=== PATIENT | male | born 1975 | race Caucasian/White ===

== ENCOUNTER 2017-11-23 14:37 | Inpatient (IN) | payer OTHER ==
[~2017-11-23] VITALS: Ht 185.4 cm; Wt 115.1 kg
[~2017-11-23 14:37] MED LIST: AZIT250 PO; HYDACE5 PO; RXHYDACE PO
[2017-11-23 15:05] LABS: Calcium, Ionized (POC) 1.08 mmol/L (1.10-1.46); Chloride (POC) 100 mmol/L (98-108); Creatinine (POC) 0.7 mg/dL (0.8-1.3); Glucose (ISTAT POC) 510 mg/dL (70-99); Potassium (POC) 4.3 mmol/L (3.5-5.5); Sodium (POC) 136 mmol/L (135-148); Total CO2 (POC) 21 mmol/L (21-32)
[2017-11-23 15:50] LABS: BASOPHILS ABSOLUTE AUTO 0.04 K/mm3 (0.00-0.23); BASOPHILS PERCENT AUTO 1 % (0-2); EOSINOPHILS ABSOLUTE AUTO 0.13 K/mm3 (0.00-0.68); EOSINOPHILS PERCENT AUTO 2 % (0-6); Hematocrit 45.7 % (37.0-53.0); Hemoglobin 15.9 g/dL (13.5-17.5); IMMATURE GRAN ABSOLUTE AUTO 0.01 K/mm3 (0.00-0.10); IMMATURE GRAN PERCENT AUTO 0 % (0-1); LYMPHOCYTES ABSOLUTE AUTO 1.75 K/mm3 (0.84-5.20); LYMPHOCYTES PERCENT AUTO 29 % (21-46); MONOCYTES ABSOLUTE AUTO 0.64 K/mm3 (0.16-1.47); MONOCYTES PERCENT AUTO 11 % (4-13); Mean Corpuscular HGB 31.4 pg (26.0-34.0); Mean Corpuscular HGB Conc 34.8 g/dL (31.5-36.5); Mean Corpuscular Volume 90 fL (80-100); Mean Platelet Volume 12.3 fL (9.1-12.4); NEUTROPHILS ABSOLUTE AUTO 3.43 K/mm3 (1.96-9.15); NEUTROPHILS PERCENT AUTO 57 % (41-73); Platelet Count 147 K/mm3 (150-400); RDW Coefficient Variation 12.2 % (11.7-14.2); RDW Standard Deviation 39.9 fL (35.1-46.3); Red Blood Cell Count 5.07 M/mm3 (4.30-5.90)
[2017-11-23 17:08] LABS: Alanine Aminotransfer (ALT/SGP 84 U/L (12-78); Albumin, Blood 3.1 g/dL (3.4-5.0); Albumin/Globulin Ratio 0.6 (0.8-1.8); Alk Phos 130 U/L (50-136); Anion Gap 12 mmol/L (6-16); Aspartate Aminotrans (AST/SGOT 61 U/L (12-37); Beta-hydroxybutyrate 2.7 mg/dL (0.2-2.8); Bilirubin, Total 0.5 mg/dL (0.1-1.0); Blood Urea Nitrogen 16 mg/dL (8-24); Bun/Creatinine Ratio 21.3 (12.0-20.0); CO2, Blood 21 mmol/L (21-32); Calcium, Blood 8.5 mg/dL (8.5-10.1); Chloride, Blood 103 mmol/L (98-108); Creatinine, Blood 0.75 mg/dL (0.60-1.20); Glomerular Filtration Rate >60 (60-); Glucose, Blood 516 mg/dL (70-99); Potassium, Blood 4.3 mmol/L (3.5-5.5); Sodium, Blood 136 mmol/L (136-145); Total Protein, Blood 8.1 g/dL (6.4-8.2)
[2017-11-23 20:42] LABS: Potassium, Blood 4.3 mmol/L (3.5-5.5)
[2017-11-23 23:25] LABS: Potassium, Blood 3.6 mmol/L (3.5-5.5)
[2017-11-24 03:39] LABS: Source, Urine Voided
[2017-11-24 03:42] LABS: Bilirubin, Urine Neg (Neg); Blood, Urine Neg (Neg); Glucose Qualitative, Urine 4+ (Neg); Ketones, Urine Neg (Neg); Leukocyte Esterase, Urine 1+ (Neg); Nitrite, Urine Neg (Neg); Protein, Urine Neg (Neg); Specific Gravity, Urine 1.015 (1.003-1.022); Urobilinogen, Urine NORM (Normal)
[2017-11-24 03:50] LABS: Appearance, Urine Clear (Clear); Bacteria Rare /hpf; Color, Urine Yellow (P-Yellow); Mucus Light (0-Heavy); Red Blood Cells, Urine Not Seen /hpf (0-2); Squamous Epithelial Cells Few /hpf (Few)
[2017-11-24 03:51] LABS: BASOPHILS ABSOLUTE AUTO 0.06 K/mm3 (0.00-0.23); BASOPHILS PERCENT AUTO 1 % (0-2); EOSINOPHILS ABSOLUTE AUTO 0.17 K/mm3 (0.00-0.68); EOSINOPHILS PERCENT AUTO 3 % (0-6); Hematocrit 40.3 % (37.0-53.0); Hemoglobin 14.1 g/dL (13.5-17.5); IMMATURE GRAN ABSOLUTE AUTO 0.01 K/mm3 (0.00-0.10); IMMATURE GRAN PERCENT AUTO 0 % (0-1); LYMPHOCYTES ABSOLUTE AUTO 1.99 K/mm3 (0.84-5.20); LYMPHOCYTES PERCENT AUTO 29 % (21-46); MONOCYTES ABSOLUTE AUTO 0.76 K/mm3 (0.16-1.47); MONOCYTES PERCENT AUTO 11 % (4-13); Mean Corpuscular HGB 31.2 pg (26.0-34.0); Mean Corpuscular Volume 89 fL (80-100); Mean Platelet Volume 12.1 fL (9.1-12.4); NEUTROPHILS ABSOLUTE AUTO 3.78 K/mm3 (1.96-9.15); NEUTROPHILS PERCENT AUTO 56 % (41-73); Platelet Count 125 K/mm3 (150-400); RDW Coefficient Variation 12.4 % (11.7-14.2); Red Blood Cell Count 4.52 M/mm3 (4.30-5.90); White Blood Cell Count 6.77 K/mm3 (4.00-11.30)
[2017-11-24 04:08] LABS: Anion Gap 7 mmol/L (6-16); Blood Urea Nitrogen 13 mg/dL (8-24); Bun/Creatinine Ratio 22.9 (12.0-20.0); CO2, Blood 26 mmol/L (21-32); Calcium, Blood 7.7 mg/dL (8.5-10.1); Chloride, Blood 105 mmol/L (98-108); Creatinine, Blood 0.57 mg/dL (0.60-1.20); Glomerular Filtration Rate >60 (60-); Glucose, Blood 266 mg/dL (70-99); Potassium, Blood 3.6 mmol/L (3.5-5.5); Sodium, Blood 138 mmol/L (136-145)
[2017-11-24 04:09] LABS: U Amphetamine Screen Not Detected; U Barbituate Screen Not Detected; U Benzodiazapine Screen Not Detected; U Buprenorphine Screen Not Detected; U Cannabinoids Screen Not Detected; U Cocaine Screen Not Detected; U Methadone Screen Not Detected; U Methamphetamine Screen Not Detected; U Opiates Screen Not Detected; U Oxycodone Screen Not Detected; U Phencyclidine Screen Not Detected; U Propoxyphene Screen Not Detected
[2017-11-25] MEDS ORDERED: ACET325 PO (11:56)
[2017-11-25] MEDS ORDERED: INSU100I6 SC (11:57)
[2017-11-25] MEDS ORDERED: INSDET100 SC (11:58)
[2017-11-25] MEDS ORDERED: METF500 PO (11:59)
== END 2017-11-25 12:45 | disposition home or self-care (01) | DRG 101 ==
LOC: ER 14:37 → SURS 18:12 → ICUW 18:12 → ICUE 18:12 → SURS 11-24 15:25
PROVIDERS: Emergency Medicine; Internal Medicine
DX: R56.9 Unspecified convulsions (principal); E11.65 Type 2 diabetes mellitus with hyperglycemia; I10 Essential (primary) hypertension; R79.89 Other specified abnormal findings of blood chemistry; E66.01 Morbid (severe) obesity due to excess calories; E86.0 Dehydration; Z87.820 Personal history of traumatic brain injury; Z91.19 Patient's noncompliance with other medical treatment and regimen; Z68.33 Body mass index [BMI] 33.0-33.9, adult
CPT/HCPCS: 36415; 70450; 76705; 80047; 80048; 80051; 80053; 81001; 82010; 82607; 82746; 82800; 82947; 83036; 85014; 85025; 93005; 93010; 95819; 96360; 99285; J1650; J1815; J7030

== ENCOUNTER → 2018-02-23 | Outpatient (CLI) | payer OTHER ==
[~2018-02-23] MED LIST changes: +ACET325 PO; +INSDET100 SC; +INSU100I6 SC; +METF500 PO
== END ==
LOC: LAB SRC 10:23 → LAB SHORT 10:23
DX: E11.65 Type 2 diabetes mellitus with hyperglycemia (principal)
CPT/HCPCS: 82043

== ENCOUNTER 2019-01-27 22:35 | Inpatient (IN) | payer OTHER ==
[~2019-01-27] VITALS: Ht 185.4 cm; Wt 111.9 kg
[2019-01-28 00:28] LABS: BASOPHILS ABSOLUTE AUTO 0.06 K/mm3 (0.00-0.23); BASOPHILS PERCENT AUTO 0 % (0-2); EOSINOPHILS ABSOLUTE AUTO 0.04 K/mm3 (0.00-0.68); EOSINOPHILS PERCENT AUTO 0 % (0-6); Hematocrit 42.4 % (37.0-53.0); Hemoglobin 14.6 g/dL (13.5-17.5); IMMATURE GRAN ABSOLUTE AUTO 0.11 K/mm3 (0.00-0.10); IMMATURE GRAN PERCENT AUTO 1 % (0-1); LYMPHOCYTES ABSOLUTE AUTO 1.19 K/mm3 (0.84-5.20); LYMPHOCYTES PERCENT AUTO 7 % (21-46); MONOCYTES ABSOLUTE AUTO 1.52 K/mm3 (0.16-1.47); MONOCYTES PERCENT AUTO 9 % (4-13); Mean Corpuscular HGB 31.9 pg (26.0-34.0); Mean Corpuscular HGB Conc 34.4 g/dL (31.5-36.5); Mean Corpuscular Volume 93 fL (80-100); Mean Platelet Volume 11.7 fL (9.1-12.4); NEUTROPHILS ABSOLUTE AUTO 13.87 K/mm3 (1.96-9.15); NEUTROPHILS PERCENT AUTO 83 % (41-73); Platelet Count 162 K/mm3 (150-400); RDW Coefficient Variation 11.8 % (11.7-14.2); RDW Standard Deviation 40.2 fL (35.1-46.3); Red Blood Cell Count 4.58 M/mm3 (4.30-5.90); White Blood Cell Count 16.79 K/mm3 (4.00-11.30)
[2019-01-28 00:45] LABS: Alanine Aminotransfer (ALT/SGP 22 U/L (12-78); Albumin, Blood 2.6 g/dL (3.4-5.0); Albumin/Globulin Ratio 0.5 (0.8-1.8); Alk Phos 111 U/L (50-136); Anion Gap 10 mmol/L (6-16); Aspartate Aminotrans (AST/SGOT 15 U/L (12-37); Bilirubin, Total 1.3 mg/dL (0.1-1.0); Blood Urea Nitrogen 25 mg/dL (8-24); Bun/Creatinine Ratio 25.1 (12.0-20.0); CO2, Blood 26 mmol/L (21-32); Calcium, Blood 8.6 mg/dL (8.5-10.1); Chloride, Blood 94 mmol/L (98-108); Globulin, Blood 5.6 g/dL (2.2-4.0); Glomerular Filtration Rate >60 (60-); Glucose, Blood 297 mg/dL (70-99); Potassium, Blood 4.2 mmol/L (3.5-5.5); Sodium, Blood 130 mmol/L (136-145); Total Protein, Blood 8.2 g/dL (6.4-8.2)
[2019-01-28 13:01] LABS: Hematocrit 39.1 % (37.0-53.0); Hemoglobin 13.7 g/dL (13.5-17.5); Mean Corpuscular HGB 31.4 pg (26.0-34.0); Mean Platelet Volume 11.2 fL (9.1-12.4); Platelet Count 159 K/mm3 (150-400); RDW Coefficient Variation 11.8 % (11.7-14.2); RDW Standard Deviation 38.2 fL (35.1-46.3); Red Blood Cell Count 4.37 M/mm3 (4.30-5.90); White Blood Cell Count 15.07 K/mm3 (4.00-11.30)
[2019-01-28 13:04] LABS: Mean Corpuscular Volume 90 fL (80-100)
[2019-01-28 13:22] LABS: Alanine Aminotransfer (ALT/SGP 20 U/L (12-78); Albumin, Blood 2.3 g/dL (3.4-5.0); Albumin/Globulin Ratio 0.4 (0.8-1.8); Alk Phos 109 U/L (50-136); Anion Gap 9 mmol/L (6-16); Aspartate Aminotrans (AST/SGOT 14 U/L (12-37); Bilirubin, Total 1.1 mg/dL (0.1-1.0); Blood Urea Nitrogen 17 mg/dL (8-24); Bun/Creatinine Ratio 24.9 (12.0-20.0); CO2, Blood 26 mmol/L (21-32); Calcium, Blood 8.5 mg/dL (8.5-10.1); Chloride, Blood 97 mmol/L (98-108); Creatinine, Blood 0.68 mg/dL (0.60-1.20); Globulin, Blood 5.2 g/dL (2.2-4.0); Glomerular Filtration Rate >60 (60-); Glucose, Blood 275 mg/dL (70-99); Potassium, Blood 4.1 mmol/L (3.5-5.5); Sodium, Blood 132 mmol/L (136-145); Total Protein, Blood 7.5 g/dL (6.4-8.2)
[2019-01-29 03:44] LABS: BASOPHILS ABSOLUTE AUTO 0.06 K/mm3 (0.00-0.23); BASOPHILS PERCENT AUTO 0 % (0-2); EOSINOPHILS ABSOLUTE AUTO 0.02 K/mm3 (0.00-0.68); EOSINOPHILS PERCENT AUTO 0 % (0-6); Hematocrit 35.9 % (37.0-53.0); Hemoglobin 12.3 g/dL (13.5-17.5); IMMATURE GRAN ABSOLUTE AUTO 0.08 K/mm3 (0.00-0.10); IMMATURE GRAN PERCENT AUTO 1 % (0-1); LYMPHOCYTES ABSOLUTE AUTO 1.36 K/mm3 (0.84-5.20); LYMPHOCYTES PERCENT AUTO 10 % (21-46); MONOCYTES ABSOLUTE AUTO 1.45 K/mm3 (0.16-1.47); MONOCYTES PERCENT AUTO 11 % (4-13); Mean Corpuscular HGB 31.1 pg (26.0-34.0); Mean Corpuscular HGB Conc 34.3 g/dL (31.5-36.5); Mean Corpuscular Volume 91 fL (80-100); Mean Platelet Volume 11.5 fL (9.1-12.4); NEUTROPHILS ABSOLUTE AUTO 10.65 K/mm3 (1.96-9.15); NEUTROPHILS PERCENT AUTO 78 % (41-73); Platelet Count 145 K/mm3 (150-400); RDW Coefficient Variation 11.8 % (11.7-14.2); RDW Standard Deviation 39.4 fL (35.1-46.3); Red Blood Cell Count 3.95 M/mm3 (4.30-5.90); White Blood Cell Count 13.62 K/mm3 (4.00-11.30)
[2019-01-29 04:06] LABS: Albumin, Blood 1.9 g/dL (3.4-5.0); Anion Gap 10 mmol/L (6-16); Blood Urea Nitrogen 23 mg/dL (8-24); Bun/Creatinine Ratio 18.4 (12.0-20.0); CO2, Blood 23 mmol/L (21-32); Calcium, Blood 7.7 mg/dL (8.5-10.1); Chloride, Blood 100 mmol/L (98-108); Creatinine, Blood 1.25 mg/dL (0.60-1.20); Glomerular Filtration Rate >60 (60-); Glucose, Blood 246 mg/dL (70-99); Phosphorus, Blood 3.1 mg/dL (2.5-4.9); Potassium, Blood 3.7 mmol/L (3.5-5.5); Sodium, Blood 133 mmol/L (136-145)
[2019-01-29 04:08] LABS: Vancomycin, Trough 12.3 ug/mL (5.0-10.0)
[2019-01-30 05:18] LABS: BASOPHILS ABSOLUTE AUTO 0.04 K/mm3 (0.00-0.23); BASOPHILS PERCENT AUTO 0 % (0-2); EOSINOPHILS ABSOLUTE AUTO 0.15 K/mm3 (0.00-0.68); EOSINOPHILS PERCENT AUTO 1 % (0-6); Hematocrit 33.6 % (37.0-53.0); Hemoglobin 11.4 g/dL (13.5-17.5); IMMATURE GRAN ABSOLUTE AUTO 0.04 K/mm3 (0.00-0.10); IMMATURE GRAN PERCENT AUTO 0 % (0-1); LYMPHOCYTES ABSOLUTE AUTO 2.03 K/mm3 (0.84-5.20); LYMPHOCYTES PERCENT AUTO 19 % (21-46); MONOCYTES ABSOLUTE AUTO 1.04 K/mm3 (0.16-1.47); MONOCYTES PERCENT AUTO 10 % (4-13); Mean Corpuscular HGB 31.8 pg (26.0-34.0); Mean Corpuscular HGB Conc 33.9 g/dL (31.5-36.5); Mean Platelet Volume 11.5 fL (9.1-12.4); NEUTROPHILS ABSOLUTE AUTO 7.69 K/mm3 (1.96-9.15); NEUTROPHILS PERCENT AUTO 70 % (41-73); Platelet Count 166 K/mm3 (150-400); RDW Coefficient Variation 11.9 % (11.7-14.2); RDW Standard Deviation 41.2 fL (35.1-46.3); Red Blood Cell Count 3.59 M/mm3 (4.30-5.90); White Blood Cell Count 10.99 K/mm3 (4.00-11.30)
[2019-01-30 05:21] LABS: Mean Corpuscular Volume 94 fL (80-100)
[2019-01-30 05:54] LABS: Albumin, Blood 1.8 g/dL (3.4-5.0); Anion Gap 8 mmol/L (6-16); Blood Urea Nitrogen 30 mg/dL (8-24); CO2, Blood 26 mmol/L (21-32); Calcium, Blood 8.1 mg/dL (8.5-10.1); Chloride, Blood 103 mmol/L (98-108); Creatinine, Blood 1.43 mg/dL (0.60-1.20); Glomerular Filtration Rate 57 (60-); Glucose, Blood 201 mg/dL (70-99); Phosphorus, Blood 3.5 mg/dL (2.5-4.9); Potassium, Blood 3.4 mmol/L (3.5-5.5); Sodium, Blood 137 mmol/L (136-145)
[2019-01-30 22:12] LABS: Adenovirus F 40/41 Not Detected (NOT DETECT); Astrovirus Not Detected (NOT DETECT); Campylobacter Sp Not Detected (NOT DETECT); Cryptosporidium Not Detected (NOT DETECT); Cyclospora Cayetanensis Not Detected (NOT DETECT); E. Coli O157 Not Detected (NOT DETECT); Entamoeba Histolytica Not Detected (NOT DETECT); Enteroaggregative E. coli-EAEC Not Detected (NOT DETECT); Enteropathogenic E. coli-EPEC Not Detected (NOT DETECT); Enterotoxigenic E. coli-ETEC Not Detected (NOT DETECT); Giardia Lamblia Not Detected (NOT DETECT); Norovirus GI/GII Not Detected (NOT DETECT); Plesiomonas Shigelloides Not Detected (NOT DETECT); Rotavirus A Not Detected (NOT DETECT); Salmonella Sp Not Detected (NOT DETECT); Sapovirus Not Detected (NOT DETECT); Shiga Toxin-prod E. coli-STEC Not Detected (NOT DETECT); Shigella/Enteroin E. coli-EIEC Not Detected (NOT DETECT); Vibrio Cholerae Not Detected (NOT DETECT); Vibrio Sp Not Detected (NOT DETECT); Yersinia Enterocolitica Not Detected (NOT DETECT)
[2019-01-31 05:20] LABS: BASOPHILS ABSOLUTE AUTO 0.04 K/mm3 (0.00-0.23); BASOPHILS PERCENT AUTO 1 % (0-2); EOSINOPHILS ABSOLUTE AUTO 0.26 K/mm3 (0.00-0.68); EOSINOPHILS PERCENT AUTO 3 % (0-6); Hematocrit 34.1 % (37.0-53.0); Hemoglobin 11.5 g/dL (13.5-17.5); Mean Corpuscular HGB 31.5 pg (26.0-34.0); Mean Corpuscular HGB Conc 33.7 g/dL (31.5-36.5); Mean Corpuscular Volume 93 fL (80-100); Mean Platelet Volume 11.1 fL (9.1-12.4); Platelet Count 198 K/mm3 (150-400); RDW Coefficient Variation 11.9 % (11.7-14.2); RDW Standard Deviation 40.7 fL (35.1-46.3); Red Blood Cell Count 3.65 M/mm3 (4.30-5.90); White Blood Cell Count 7.77 K/mm3 (4.00-11.30)
[2019-01-31 05:28] LABS: IMMATURE GRAN ABSOLUTE AUTO 0.04 K/mm3 (0.00-0.10); IMMATURE GRAN PERCENT AUTO 1 % (0-1); LYMPHOCYTES ABSOLUTE AUTO 2.03 K/mm3 (0.84-5.20); LYMPHOCYTES PERCENT AUTO 26 % (21-46); MONOCYTES ABSOLUTE AUTO 0.76 K/mm3 (0.16-1.47); MONOCYTES PERCENT AUTO 10 % (4-13); NEUTROPHILS ABSOLUTE AUTO 4.64 K/mm3 (1.96-9.15); NEUTROPHILS PERCENT AUTO 60 % (41-73)
[2019-01-31 06:02] LABS: BASOPHILS ABSOLUTE MAN 0.07 K/mm3 (0.00-0.23); BASOPHILS PERCENT MAN 1 % (0-2); EOSINOPHILS ABSOLUTE MAN 0.23 K/mm3 (0.00-0.68); EOSINOPHILS PERCENT MAN 3 % (0-6); LYMPHOCYTES % ATYPICAL MANUAL 2 % (0-0); LYMPHOCYTES ABSOLUTE MAN 2.79 K/mm3 (0.84-5.20); LYMPHOCYTES PERCENT MAN 34 % (21-46); MONOCYTES ABSOLUTE MAN 0.31 K/mm3 (0.16-1.47); MONOCYTES PERCENT MAN 4 % (4-13); NEUTROPHILS ABSOLUTE MAN 4.35 K/mm3 (1.96-9.15); SEG NEUTROPHILS PERCENT MAN 56 % (41-73); TOTAL CELLS COUNTED 100
[2019-01-31 06:06] LABS: Albumin, Blood 1.8 g/dL (3.4-5.0); Anion Gap 9 mmol/L (6-16); Blood Urea Nitrogen 24 mg/dL (8-24); Bun/Creatinine Ratio 20.7 (12.0-20.0); CO2, Blood 25 mmol/L (21-32); Calcium, Blood 8.2 mg/dL (8.5-10.1); Chloride, Blood 109 mmol/L (98-108); Creatinine, Blood 1.16 mg/dL (0.60-1.20); Glomerular Filtration Rate >60 (60-); Glucose, Blood 122 mg/dL (70-99); Phosphorus, Blood 3.3 mg/dL (2.5-4.9); Potassium, Blood 3.5 mmol/L (3.5-5.5); Sodium, Blood 143 mmol/L (136-145)
[2019-02-01 05:33] LABS: BASOPHILS ABSOLUTE AUTO 0.02 K/mm3 (0.00-0.23); BASOPHILS PERCENT AUTO 0 % (0-2); EOSINOPHILS ABSOLUTE AUTO 0.01 K/mm3 (0.00-0.68); EOSINOPHILS PERCENT AUTO 0 % (0-6); Hematocrit 35.3 % (37.0-53.0); Hemoglobin 11.8 g/dL (13.5-17.5); Mean Corpuscular HGB 31.2 pg (26.0-34.0); Mean Corpuscular HGB Conc 33.4 g/dL (31.5-36.5); Mean Corpuscular Volume 93 fL (80-100); Mean Platelet Volume 11.2 fL (9.1-12.4); Platelet Count 198 K/mm3 (150-400); RDW Coefficient Variation 11.9 % (11.7-14.2); RDW Standard Deviation 40.5 fL (35.1-46.3); Red Blood Cell Count 3.78 M/mm3 (4.30-5.90); White Blood Cell Count 8.39 K/mm3 (4.00-11.30)
[2019-02-01 05:35] LABS: IMMATURE GRAN ABSOLUTE AUTO 0.06 K/mm3 (0.00-0.10); IMMATURE GRAN PERCENT AUTO 1 % (0-1); LYMPHOCYTES ABSOLUTE AUTO 1.15 K/mm3 (0.84-5.20); LYMPHOCYTES PERCENT AUTO 14 % (21-46); MONOCYTES ABSOLUTE AUTO 0.62 K/mm3 (0.16-1.47); MONOCYTES PERCENT AUTO 7 % (4-13); NEUTROPHILS ABSOLUTE AUTO 6.53 K/mm3 (1.96-9.15); NEUTROPHILS PERCENT AUTO 78 % (41-73)
[2019-02-01 05:52] LABS: Albumin, Blood 1.9 g/dL (3.4-5.0); Anion Gap 7 mmol/L (6-16); Blood Urea Nitrogen 23 mg/dL (8-24); Bun/Creatinine Ratio 19.5 (12.0-20.0); CO2, Blood 25 mmol/L (21-32); Calcium, Blood 8.2 mg/dL (8.5-10.1); Chloride, Blood 107 mmol/L (98-108); Creatinine, Blood 1.18 mg/dL (0.60-1.20); Glomerular Filtration Rate >60 (60-); Glucose, Blood 276 mg/dL (70-99); Potassium, Blood 4.5 mmol/L (3.5-5.5); Sodium, Blood 139 mmol/L (136-145)
[2019-02-01] MEDS ORDERED: Anti-Diarrheal2 MG PO (17:41)
[2019-02-01] MEDS ORDERED: Florastor250 MG PO (17:42)
== END 2019-02-01 18:58 | disposition home or self-care (01) | DRG 853 ==
LOC: ER 22:35 → MEDS 01-28 03:03
PROVIDERS: Emergency Medicine; Family Medicine; Podiatrist Foot & Ankle Surgery; ADMIT Internal Medicine
PROC: 0Y6Y0Z0 Detachment at Left 5th Toe, Complete, Open Approach (ICD-10-PCS; 2019-01-28)
PROC: 0Y6W0Z0 Detachment at Left 4th Toe, Complete, Open Approach (ICD-10-PCS; principal; 2019-01-28 16:00)
PROC: 0Y6N0Z9 Detachment at Left Foot, Partial 1st Ray, Open Approach (ICD-10-PCS; 2019-01-31)
PROC: 0Y6N0ZB Detachment at Left Foot, Partial 2nd Ray, Open Approach (ICD-10-PCS; 2019-01-31)
PROC: 0Y6N0ZC Detachment at Left Foot, Partial 3rd Ray, Open Approach (ICD-10-PCS; 2019-01-31)
DX: A40.1 Sepsis due to streptococcus, group B (principal); A48.0 Gas gangrene; L03.116 Cellulitis of left lower limb; E87.1 Hypo-osmolality and hyponatremia; E11.52 Type 2 diabetes mellitus with diabetic peripheral angiopathy with gangrene; N17.9 Acute kidney failure, unspecified; K52.1 Toxic gastroenteritis and colitis; J45.909 Unspecified asthma, uncomplicated; E78.5 Hyperlipidemia, unspecified; E11.65 Type 2 diabetes mellitus with hyperglycemia; E87.6 Hypokalemia; T36.95XA Adverse effect of unspecified systemic antibiotic, initial encounter; Y92.239 Unspecified place in hospital as the place of occurrence of the external cause; D50.0 Iron deficiency anemia secondary to blood loss (chronic); I10 Essential (primary) hypertension; B96.6 Bacteroides fragilis [B. fragilis] as the cause of diseases classified elsewhere; E11.628 Type 2 diabetes mellitus with other skin complications; Z79.4 Long term (current) use of insulin
CPT/HCPCS: 36415; 36569; 73620; 73630; 73701; 80053; 80069; 80202; 82947; 83036; 83605; 85025; 85027; 85651; 86140; 87040; 87070; 87071; 87075; 87076; 87184; 87185; 87205; 87493; 87507; 88305; 88307; 88311; 93306; 96365-59; 96367-59; 96375-59; 97116; 97162; 97530; 99285-25; A9270; C1751; J0295; J0330; J1100; J1200; J1335; J1650; J2250; J2405; J2543; J2704; J3010; J3370; J7030; J7050; J7120; Q9967

== ENCOUNTER 2019-02-02 14:10 | Day surgery (SDC) | payer OTHER ==
[~2019-02-02 14:10] MED LIST changes: +Anti-Diarrheal2 MG PO; +Florastor250 MG PO
== END 2019-02-02 14:55 | disposition home or self-care (01) ==
LOC: ATC 14:10
DX: E11.69 Type 2 diabetes mellitus with other specified complication (principal); M86.9 Osteomyelitis, unspecified; R78.81 Bacteremia; J45.909 Unspecified asthma, uncomplicated; E78.5 Hyperlipidemia, unspecified
CPT/HCPCS: 96365; J1335

== ENCOUNTER 2019-02-03 14:47 | Day surgery (SDC) | payer OTHER ==
[2019-02-04] MEDS ORDERED: VITAMIN D-32000 UNIT PO (15:19)
[2019-02-04] MEDS ORDERED: ERTAPENEM1 GM IV (15:20)
== END 2019-02-03 15:20 | disposition home or self-care (01) ==
LOC: ATC 14:47
DX: E11.69 Type 2 diabetes mellitus with other specified complication (principal); M86.9 Osteomyelitis, unspecified; J45.909 Unspecified asthma, uncomplicated; E78.5 Hyperlipidemia, unspecified
CPT/HCPCS: 96365; J1335

== ENCOUNTER 2019-02-04 14:17 | Day surgery (SDC) | payer OTHER ==
[2019-02-04] MEDS ORDERED: VITAMIN D-32000 UNIT PO (15:19)
[2019-02-04] MEDS ORDERED: ERTAPENEM1 GM IV (15:20)
== END 2019-02-04 15:11 | disposition home or self-care (01) ==
LOC: ATC 14:17
DX: E11.69 Type 2 diabetes mellitus with other specified complication (principal); M86.9 Osteomyelitis, unspecified; L03.116 Cellulitis of left lower limb; L02.612 Cutaneous abscess of left foot; J45.909 Unspecified asthma, uncomplicated; E78.5 Hyperlipidemia, unspecified
CPT/HCPCS: 96365; J1335

== ENCOUNTER 2019-02-05 08:57 | Day surgery (SDC) | payer OTHER ==
[~2019-02-05 08:57] MED LIST changes: +ERTAPENEM1 GM IV; +VITAMIN D-32000 UNIT PO
== END 2019-02-05 11:55 | disposition home or self-care (01) ==
LOC: ATC 08:57
DX: E11.69 Type 2 diabetes mellitus with other specified complication (principal); M86.9 Osteomyelitis, unspecified; R78.81 Bacteremia; J45.909 Unspecified asthma, uncomplicated; E78.5 Hyperlipidemia, unspecified
CPT/HCPCS: 96365; J1335

== ENCOUNTER 2019-02-06 03:04 | Day surgery (SDC) | payer OTHER | END 2019-02-06 15:03 | disposition home or self-care (01) | LOC: ATC 03:04 | DX: E11.69 Type 2 diabetes mellitus with other specified complication (principal); M86.9 Osteomyelitis, unspecified; R78.81 Bacteremia; J45.909 Unspecified asthma, uncomplicated; E78.5 Hyperlipidemia, unspecified; Z91.018 Allergy to other foods; Z91.02 Food additives allergy status; Z91.013 Allergy to seafood | CPT/HCPCS: 96365; J1335 ==

== ENCOUNTER 2019-02-07 00:09 | Day surgery (SDC) | payer OTHER | END 2019-02-07 15:00 | disposition home or self-care (01) | LOC: ATC 00:09 | DX: E11.69 Type 2 diabetes mellitus with other specified complication (principal); M86.9 Osteomyelitis, unspecified; R78.81 Bacteremia; E11.9 Type 2 diabetes mellitus without complications; J45.909 Unspecified asthma, uncomplicated; E78.5 Hyperlipidemia, unspecified; Z91.013 Allergy to seafood; Z91.02 Food additives allergy status; Z91.018 Allergy to other foods | CPT/HCPCS: 96365; J1335 ==

== ENCOUNTER 2019-02-08 00:26 | Day surgery (SDC) | payer OTHER | END 2019-02-08 14:55 | disposition home or self-care (01) | LOC: ATC 00:26 | DX: E11.69 Type 2 diabetes mellitus with other specified complication (principal); M86.9 Osteomyelitis, unspecified; L03.116 Cellulitis of left lower limb; L02.612 Cutaneous abscess of left foot; R78.81 Bacteremia; E78.5 Hyperlipidemia, unspecified | CPT/HCPCS: 96365; J1335 ==

== ENCOUNTER 2019-02-09 00:22 | Day surgery (SDC) | payer OTHER | END 2019-02-09 16:02 | disposition home or self-care (01) | LOC: ATC 00:22 | DX: E11.69 Type 2 diabetes mellitus with other specified complication (principal); M86.9 Osteomyelitis, unspecified; L03.116 Cellulitis of left lower limb; L02.612 Cutaneous abscess of left foot; E78.5 Hyperlipidemia, unspecified | CPT/HCPCS: 96374; J1335 ==

== ENCOUNTER 2019-02-10 14:24 | Day surgery (SDC) | payer OTHER | END 2019-02-10 14:52 | disposition home or self-care (01) | LOC: ATC 14:24 | DX: L03.116 Cellulitis of left lower limb (principal); R78.81 Bacteremia; E11.621 Type 2 diabetes mellitus with foot ulcer; L97.529 Non-pressure chronic ulcer of other part of left foot with unspecified severity; E11.69 Type 2 diabetes mellitus with other specified complication; M86.9 Osteomyelitis, unspecified; E11.65 Type 2 diabetes mellitus with hyperglycemia | CPT/HCPCS: 96365; J1335 ==

== ENCOUNTER 2019-02-11 14:27 | Day surgery (SDC) | payer OTHER | END 2019-02-11 14:52 | disposition home or self-care (01) | LOC: ATC 14:27 | DX: E11.69 Type 2 diabetes mellitus with other specified complication (principal); M86.9 Osteomyelitis, unspecified; L02.612 Cutaneous abscess of left foot; L03.116 Cellulitis of left lower limb; R78.81 Bacteremia; J45.909 Unspecified asthma, uncomplicated; E78.5 Hyperlipidemia, unspecified; Z91.018 Allergy to other foods; Z91.02 Food additives allergy status | CPT/HCPCS: 96365; J1335 ==

== ENCOUNTER 2019-02-12 00:10 | Day surgery (SDC) | payer OTHER | END 2019-02-12 14:43 | disposition home or self-care (01) | LOC: ATC 00:10 | DX: E11.69 Type 2 diabetes mellitus with other specified complication (principal); M86.9 Osteomyelitis, unspecified; L03.116 Cellulitis of left lower limb; L02.612 Cutaneous abscess of left foot; R78.81 Bacteremia; J45.909 Unspecified asthma, uncomplicated; E78.5 Hyperlipidemia, unspecified; Z91.018 Allergy to other foods; Z91.02 Food additives allergy status | CPT/HCPCS: 96365; J1335 ==

== ENCOUNTER 2019-02-13 00:14 | Day surgery (SDC) | payer OTHER | END 2019-02-13 14:38 | disposition home or self-care (01) | LOC: ATC 00:14 | DX: E11.69 Type 2 diabetes mellitus with other specified complication (principal); M86.9 Osteomyelitis, unspecified; L03.116 Cellulitis of left lower limb; L02.612 Cutaneous abscess of left foot; R78.81 Bacteremia; J45.909 Unspecified asthma, uncomplicated; E78.5 Hyperlipidemia, unspecified; Z91.02 Food additives allergy status; Z91.018 Allergy to other foods; Z91.013 Allergy to seafood | CPT/HCPCS: 36415; 85651; 86140; 96365; J1335 ==

== ENCOUNTER 2019-02-14 00:13 | Day surgery (SDC) | payer OTHER | END 2019-02-14 23:36 | disposition home or self-care (01) | LOC: ATC 00:13 | DX: Z45.2 Encounter for adjustment and management of vascular access device (principal); Z91.040 Latex allergy status; Z91.013 Allergy to seafood; Z91.018 Allergy to other foods | CPT/HCPCS: J1335 ==

== ENCOUNTER 2019-02-15 00:06 | Day surgery (SDC) | payer OTHER | END 2019-02-15 23:56 | disposition home or self-care (01) | LOC: ATC 00:06 | DX: E11.69 Type 2 diabetes mellitus with other specified complication (principal); E11.65 Type 2 diabetes mellitus with hyperglycemia; M86.8X7 Other osteomyelitis, ankle and foot; E78.5 Hyperlipidemia, unspecified; R78.81 Bacteremia; L02.612 Cutaneous abscess of left foot; L03.116 Cellulitis of left lower limb ==

== ENCOUNTER 2019-02-16 01:15 | Day surgery (SDC) | payer OTHER | END 2019-02-17 01:59 | disposition home or self-care (01) | LOC: ATC 01:15 | DX: E11.69 Type 2 diabetes mellitus with other specified complication (principal); M86.8X7 Other osteomyelitis, ankle and foot; R78.81 Bacteremia; E11.65 Type 2 diabetes mellitus with hyperglycemia; Z91.013 Allergy to seafood; Z91.018 Allergy to other foods | CPT/HCPCS: J1335 ==

== ENCOUNTER 2019-02-17 00:26 | Day surgery (SDC) | payer OTHER | END 2019-02-17 22:51 | disposition home or self-care (01) | LOC: ATC 00:26 | DX: E11.69 Type 2 diabetes mellitus with other specified complication (principal); E11.65 Type 2 diabetes mellitus with hyperglycemia; M86.8X7 Other osteomyelitis, ankle and foot; R78.81 Bacteremia; L02.612 Cutaneous abscess of left foot; L03.116 Cellulitis of left lower limb; E78.5 Hyperlipidemia, unspecified; Z91.013 Allergy to seafood; Z91.018 Allergy to other foods ==

== ENCOUNTER 2019-02-18 00:07 | Day surgery (SDC) | payer OTHER | END 2019-02-18 22:50 | disposition home or self-care (01) | LOC: ATC 00:07 | DX: E11.69 Type 2 diabetes mellitus with other specified complication (principal); M86.9 Osteomyelitis, unspecified; L03.116 Cellulitis of left lower limb; L02.612 Cutaneous abscess of left foot; J45.909 Unspecified asthma, uncomplicated; E78.5 Hyperlipidemia, unspecified; Z91.018 Allergy to other foods; Z91.02 Food additives allergy status | CPT/HCPCS: J1335 ==

== ENCOUNTER 2019-02-19 00:18 | Day surgery (SDC) | payer OTHER | END 2019-02-19 23:00 | disposition home or self-care (01) | LOC: ATC 00:18 | DX: E11.69 Type 2 diabetes mellitus with other specified complication (principal); E11.65 Type 2 diabetes mellitus with hyperglycemia; M86.8X7 Other osteomyelitis, ankle and foot; R78.81 Bacteremia; L02.612 Cutaneous abscess of left foot; L03.116 Cellulitis of left lower limb; E78.5 Hyperlipidemia, unspecified; Z91.013 Allergy to seafood; Z91.018 Allergy to other foods ==

== ENCOUNTER → 2019-02-19 | Outpatient (CLI) | payer OTHER ==
[2019-02-19 15:28] LABS: BASOPHILS ABSOLUTE AUTO 0.04 K/mm3 (0.00-0.23); BASOPHILS PERCENT AUTO 1 % (0-2); EOSINOPHILS ABSOLUTE AUTO 0.23 K/mm3 (0.00-0.68); EOSINOPHILS PERCENT AUTO 4 % (0-6); Hematocrit 39.2 % (37.0-53.0); Hemoglobin 13.2 g/dL (13.5-17.5); IMMATURE GRAN ABSOLUTE AUTO 0.01 K/mm3 (0.00-0.10); IMMATURE GRAN PERCENT AUTO 0 % (0-1); LYMPHOCYTES ABSOLUTE AUTO 1.83 K/mm3 (0.84-5.20); LYMPHOCYTES PERCENT AUTO 34 % (21-46); MONOCYTES ABSOLUTE AUTO 0.51 K/mm3 (0.16-1.47); MONOCYTES PERCENT AUTO 10 % (4-13); Mean Corpuscular HGB 31.2 pg (26.0-34.0); Mean Corpuscular HGB Conc 33.7 g/dL (31.5-36.5); Mean Corpuscular Volume 93 fL (80-100); Mean Platelet Volume 11.8 fL (9.1-12.4); NEUTROPHILS ABSOLUTE AUTO 2.71 K/mm3 (1.96-9.15); NEUTROPHILS PERCENT AUTO 51 % (41-73); Platelet Count 184 K/mm3 (150-400); RDW Coefficient Variation 12.3 % (11.7-14.2); RDW Standard Deviation 42.1 fL (35.1-46.3); Red Blood Cell Count 4.23 M/mm3 (4.30-5.90); White Blood Cell Count 5.33 K/mm3 (4.00-11.30)
[2019-02-19 16:40] LABS: Alanine Aminotransfer (ALT/SGP 49 U/L (12-78); Albumin, Blood 2.9 g/dL (3.4-5.0); Albumin/Globulin Ratio 0.6 (0.8-1.8); Alk Phos 96 U/L (50-136); Anion Gap 4 mmol/L (6-16); Aspartate Aminotrans (AST/SGOT 43 U/L (12-37); Bilirubin, Total 0.4 mg/dL (0.1-1.0); Blood Urea Nitrogen 23 mg/dL (8-24); Bun/Creatinine Ratio 31.2 (12.0-20.0); CO2, Blood 28 mmol/L (21-32); Calcium, Blood 9.1 mg/dL (8.5-10.1); Chloride, Blood 107 mmol/L (98-108); Creatinine, Blood 0.74 mg/dL (0.60-1.20); Globulin, Blood 5.2 g/dL (2.2-4.0); Glomerular Filtration Rate >60 (60-); Glucose, Blood 245 mg/dL (70-99); Potassium, Blood 4.5 mmol/L (3.5-5.5); Sodium, Blood 139 mmol/L (136-145); Total Protein, Blood 8.1 g/dL (6.4-8.2)
== END | disposition home or self-care (01) ==
LOC: LAB 15:20 → LAB HH 15:20
PROVIDERS: Internal Medicine
DX: E11.69 Type 2 diabetes mellitus with other specified complication (principal); M86.172 Other acute osteomyelitis, left ankle and foot
CPT/HCPCS: 80053; 85025; 85651; 86140

== ENCOUNTER → 2019-02-27 | Outpatient (CLI) | payer OTHER ==
[2019-02-27 18:12] LABS: BASOPHILS ABSOLUTE AUTO 0.05 K/mm3 (0.00-0.23); BASOPHILS PERCENT AUTO 1 % (0-2); EOSINOPHILS ABSOLUTE AUTO 0.35 K/mm3 (0.00-0.68); EOSINOPHILS PERCENT AUTO 6 % (0-6); Hematocrit 40.2 % (37.0-53.0); Hemoglobin 13.5 g/dL (13.5-17.5); IMMATURE GRAN ABSOLUTE AUTO 0.01 K/mm3 (0.00-0.10); IMMATURE GRAN PERCENT AUTO 0 % (0-1); LYMPHOCYTES ABSOLUTE AUTO 1.97 K/mm3 (0.84-5.20); LYMPHOCYTES PERCENT AUTO 31 % (21-46); MONOCYTES ABSOLUTE AUTO 0.43 K/mm3 (0.16-1.47); MONOCYTES PERCENT AUTO 7 % (4-13); Mean Corpuscular HGB 31.4 pg (26.0-34.0); Mean Corpuscular HGB Conc 33.6 g/dL (31.5-36.5); Mean Corpuscular Volume 94 fL (80-100); Mean Platelet Volume 12.5 fL (9.1-12.4); NEUTROPHILS ABSOLUTE AUTO 3.53 K/mm3 (1.96-9.15); NEUTROPHILS PERCENT AUTO 56 % (41-73); Platelet Count 159 K/mm3 (150-400); RDW Coefficient Variation 12.6 % (11.7-14.2); RDW Standard Deviation 43.2 fL (35.1-46.3); White Blood Cell Count 6.34 K/mm3 (4.00-11.30)
[2019-02-27 19:08] LABS: Alanine Aminotransfer (ALT/SGP 65 U/L (12-78); Albumin, Blood 3.2 g/dL (3.4-5.0); Albumin/Globulin Ratio 0.7 (0.8-1.8); Alk Phos 96 U/L (50-136); Anion Gap 6 mmol/L (6-16); Aspartate Aminotrans (AST/SGOT 40 U/L (12-37); Bilirubin, Total 0.7 mg/dL (0.1-1.0); Blood Urea Nitrogen 23 mg/dL (8-24); Bun/Creatinine Ratio 31.6 (12.0-20.0); CO2, Blood 26 mmol/L (21-32); Chloride, Blood 106 mmol/L (98-108); Creatinine, Blood 0.73 mg/dL (0.60-1.20); Globulin, Blood 4.8 g/dL (2.2-4.0); Glomerular Filtration Rate >60 (60-); Glucose, Blood 237 mg/dL (70-99); Sodium, Blood 138 mmol/L (136-145)
== END | disposition home or self-care (01) ==
LOC: LAB SHORT 14:00 → LAB HH 14:00
PROVIDERS: Physician Assistant
DX: E11.69 Type 2 diabetes mellitus with other specified complication (principal); M86.172 Other acute osteomyelitis, left ankle and foot
CPT/HCPCS: 80053; 85025

== ENCOUNTER → 2020-01-28 | Outpatient (CLI) | payer OTHER ==
[2020-01-28 18:17] LABS: BASOPHILS ABSOLUTE AUTO 0.08 K/mm3 (0.00-0.23); BASOPHILS PERCENT AUTO 1 % (0-2); EOSINOPHILS ABSOLUTE AUTO 0.32 K/mm3 (0.00-0.68); EOSINOPHILS PERCENT AUTO 4 % (0-6); Hematocrit 46.5 % (37.0-53.0); Hemoglobin 16.3 g/dL (13.5-17.5); IMMATURE GRAN ABSOLUTE AUTO 0.01 K/mm3 (0.00-0.10); IMMATURE GRAN PERCENT AUTO 0 % (0-1); LYMPHOCYTES ABSOLUTE AUTO 1.72 K/mm3 (0.84-5.20); LYMPHOCYTES PERCENT AUTO 22 % (21-46); MONOCYTES ABSOLUTE AUTO 0.67 K/mm3 (0.16-1.47); MONOCYTES PERCENT AUTO 9 % (4-13); Mean Corpuscular HGB 31.4 pg (26.0-34.0); Mean Corpuscular HGB Conc 35.1 g/dL (31.5-36.5); Mean Corpuscular Volume 90 fL (80-100); Mean Platelet Volume 12.1 fL (9.1-12.4); NEUTROPHILS PERCENT AUTO 64 % (41-73); Platelet Count 171 K/mm3 (150-400); RDW Coefficient Variation 12.2 % (11.7-14.2); RDW Standard Deviation 39.7 fL (35.1-46.3); Red Blood Cell Count 5.19 M/mm3 (4.30-5.90)
[2020-01-28 18:28] LABS: Alanine Aminotransfer (ALT/SGP 88 U/L (12-78); Albumin, Blood 3.7 g/dL (3.4-5.0); Albumin/Globulin Ratio 0.8 (0.8-1.8); Alk Phos 91 U/L (40-126); Anion Gap 12 mmol/L (6-16); Aspartate Aminotrans (AST/SGOT 46 U/L (12-37); Bilirubin, Total 0.5 mg/dL (0.1-1.0); Blood Urea Nitrogen 25 mg/dL (8-24); Bun/Creatinine Ratio 22.7 (12.0-20.0); CO2, Blood 26 mmol/L (21-32); Calcium, Blood 9.3 mg/dL (8.5-10.1); Chloride, Blood 102 mmol/L (98-108); Globulin, Blood 4.9 g/dL (2.2-4.0); Glomerular Filtration Rate >60 (60-); Glucose, Blood 399 mg/dL (70-99); Potassium, Blood 4.8 mmol/L (3.5-5.5); Sodium, Blood 140 mmol/L (136-145); Total Protein, Blood 8.6 g/dL (6.4-8.2)
== END | disposition home or self-care (01) ==
LOC: LAB EV 18:08 → LAB SHORT 18:08
PROVIDERS: Physician Assistant
DX: E11.65 Type 2 diabetes mellitus with hyperglycemia (principal)
CPT/HCPCS: 80053; 83036; 85025

== ENCOUNTER → 2020-01-28 | Outpatient (CLI) | payer OTHER | END | disposition home or self-care (01) | LOC: LAB EV 17:46 → LAB SHORT 17:46 | DX: L97.919 Non-pressure chronic ulcer of unspecified part of right lower leg with unspecified severity (principal) | CPT/HCPCS: 87070; 87205 ==

== ENCOUNTER → 2021-02-25 | Outpatient (CLI) | payer OTHER ==
[~2021-02-25] MED LIST changes: +GLUCOPHAGE1000 M1 PO; +HUMULIN N100 UNIT/6
== END | disposition home or self-care (01) ==
LOC: LAB SHORT 17:35 → LAB 17:35
DX: R21 Rash and other nonspecific skin eruption (principal)
CPT/HCPCS: 87070; 87077; 87147; 87186; 87205

== ENCOUNTER 2021-03-09 12:21 | Day surgery (SDC) | payer OTHER ==
[~2021-03-09] VITALS: Ht 185.4 cm; Wt 116.7 kg
[2021-03-09] MEDS ORDERED: TOUJEO SOL300 UNIT/2 SC (13:14)
[2021-03-09] MEDS ORDERED: ADMELOG SO100 UNIT/2 (13:15)
--- NOTE | 2021-03-09 13:51 | NUR ---
03/09/21 1351 Cesar Green ULCERATIONS ON TOP AND BOTTOM OF FOOT AND ABRASIONS ON MCKEON NOTED BEFORE PREPPING PT.
== END 2021-03-09 14:57 | disposition home or self-care (01) ==
LOC: ORSCSDS 12:21
PROVIDERS: Podiatrist Foot & Ankle Surgery
PROC: 0L8N0ZZ Division of Right Lower Leg Tendon, Open Approach (ICD-10-PCS; principal; 2021-03-09 14:00)
DX: M24.571 Contracture, right ankle (principal); E08.621 Diabetes mellitus due to underlying condition with foot ulcer; J45.909 Unspecified asthma, uncomplicated; Z79.84 Long term (current) use of oral hypoglycemic drugs; Z79.899 Other long term (current) drug therapy
CPT/HCPCS: 82947; J0171; J0690; J1100; J2250; J2370; J2405; J2704; J3010; J7120

== ENCOUNTER 2021-11-21 11:29 | Emergency (ER) | payer OTHER ==
[~2021-11-21] VITALS: Ht 185.4 cm; Wt 120.2 kg
[~2021-11-21 11:29] MED LIST changes: +ADMELOG SO100 UNIT/2; +TOUJEO SOL300 UNIT/2 SC
[2021-11-21 13:51] LABS: Source, Urine Clean Catch
[2021-11-21 14:26] LABS: Appearance, Urine Cloudy (Clear); Bilirubin, Urine Neg (Neg); Blood, Urine 5+ (Neg); Color, Urine Yellow (P-Yellow); Glucose Qualitative, Urine 4+ (Neg); Ketones, Urine 2+ (Neg); Leukocyte Esterase, Urine 3+ (Neg); Nitrite, Urine Pos (Neg); Protein, Urine 3+ (Neg); Specific Gravity, Urine 1.015 (1.003-1.022); Urobilinogen, Urine NORM (Normal)
[2021-11-21 14:57] LABS: White Blood Cells, Urine TNTC /hpf (0-5)
[2021-11-21 15:03] LABS: Bacteria Many /hpf
[2021-11-21 15:05] LABS: Squamous Epithelial Cells Few /hpf (Few)
[2021-11-21] MEDS ORDERED: CLIN300 PO (15:33)
[2021-11-21] MEDS ORDERED: CEFD300 PO (15:33)
== END 2021-11-21 15:43 | disposition home or self-care (01) ==
LOC: ER 11:29
PROVIDERS: Emergency Medicine
DX: N39.0 Urinary tract infection, site not specified (principal); E11.621 Type 2 diabetes mellitus with foot ulcer; L97.529 Non-pressure chronic ulcer of other part of left foot with unspecified severity; R05.9 Cough, unspecified; E11.9 Type 2 diabetes mellitus without complications; Z91.018 Allergy to other foods; Z91.040 Latex allergy status; Z91.013 Allergy to seafood; Z79.899 Other long term (current) drug therapy; Z79.4 Long term (current) use of insulin; Z79.84 Long term (current) use of oral hypoglycemic drugs
CPT/HCPCS: 71045; 81001; 87077; 87086; 87147; 87186; 99283-25; A9270

== ENCOUNTER → 2022-02-23 | Outpatient (CLI) | payer OTHER ==
[~2022-02-23] MED LIST changes: +BACTRIM DS TAB1 EAC2 PO; +CEFD300 PO; +CLIN300 PO
[2022-02-25 01:07] LABS: CHLAMYDIA TRACHOMATIS, NAA Negative (Negative)
== END | disposition home or self-care (01) ==
LOC: LAB 12:59 → LAB SHORT 12:59
PROVIDERS: Family Medicine
DX: R30.9 Painful micturition, unspecified (principal)
CPT/HCPCS: 87077; 87086; 87186; 87491; 87591

== ENCOUNTER → 2022-02-26 | Outpatient (CLI) | payer OTHER ==
[~2022-02-26] MED LIST changes: -BACTRIM DS TAB1 EAC2 PO
[2022-02-26 16:12] LABS: BASOPHILS ABSOLUTE AUTO 0.07 K/mm3 (0.00-0.23); BASOPHILS PERCENT AUTO 1 % (0-2); EOSINOPHILS ABSOLUTE AUTO 0.19 K/mm3 (0.00-0.68); EOSINOPHILS PERCENT AUTO 2 % (0-6); Hematocrit 45.8 % (37.0-53.0); Hemoglobin 15.3 g/dL (13.5-17.5); IMMATURE GRAN ABSOLUTE AUTO 0.03 K/mm3 (0.00-0.10); IMMATURE GRAN PERCENT AUTO 0 % (0-1); LYMPHOCYTES ABSOLUTE AUTO 2.71 K/mm3 (0.84-5.20); LYMPHOCYTES PERCENT AUTO 31 % (21-46); MONOCYTES ABSOLUTE AUTO 0.63 K/mm3 (0.16-1.47); MONOCYTES PERCENT AUTO 7 % (4-13); Mean Corpuscular HGB 29.1 pg (26.0-34.0); Mean Corpuscular HGB Conc 33.4 g/dL (31.5-36.5); Mean Corpuscular Volume 87 fL (80-100); Mean Platelet Volume 12.5 fL (9.1-12.4); NEUTROPHILS ABSOLUTE AUTO 5.21 K/mm3 (1.96-9.15); NEUTROPHILS PERCENT AUTO 59 % (41-73); Platelet Count 146 K/mm3 (150-400); RDW Coefficient Variation 13.1 % (11.7-14.2); RDW Standard Deviation 41.4 fL (35.1-46.3); Red Blood Cell Count 5.26 M/mm3 (4.30-5.90); White Blood Cell Count 8.84 K/mm3 (4.00-11.30)
[2022-02-26 16:28] LABS: Free Thyroxine 1.28 ng/dL (0.70-1.60)
[2022-02-26 16:30] LABS: Alanine Aminotransfer (ALT/SGP 44 U/L (12-78); Albumin/Globulin Ratio 0.5 (0.8-1.8); Alk Phos 132 U/L (50-136); Anion Gap 6 mmol/L (6-16); Aspartate Aminotrans (AST/SGOT 30 U/L (12-37); Bilirubin, Total 0.7 mg/dL (0.1-1.0); Blood Urea Nitrogen 25 mg/dL (8-24); Bun/Creatinine Ratio 32.3 (12.0-20.0); CHOL/HDL RATIO 4.6; CO2, Blood 25 mmol/L (21-32); Chloride, Blood 101 mmol/L (98-108); Cholesterol 138 mg/dL (50-200); Creatinine, Blood 0.77 mg/dL (0.60-1.20); Globulin, Blood 5.8 g/dL (2.2-4.0); Glomerular Filtration Rate 111 (60-); Glucose, Blood 403 mg/dL (70-99); HDL Cholesterol 30 mg/dL (>39); LDL/HDL RATIO 2.3; Low Density Lipoprotein Chol 70 mg/dL (0-110); Potassium, Blood 4.5 mmol/L (3.5-5.5); Sodium, Blood 132 mmol/L (136-145); Total Protein, Blood 8.8 g/dL (6.4-8.2); Triglycerides 188 mg/dL (30-160); Very Low Density Lipoprot Chol 37 mg/dL (6-32)
[2022-02-27 08:08] LABS: HIV AB/P24 AG SCREEN Non Reactive (Non Reactive)
== END | disposition home or self-care (01) ==
LOC: LAB SHORT 15:07 → LAB 15:07
PROVIDERS: Family Medicine
DX: Z11.4 Encounter for screening for human immunodeficiency virus [HIV] (principal); Z11.59 Encounter for screening for other viral diseases; F43.12 Post-traumatic stress disorder, chronic; E13.621 Other specified diabetes mellitus with foot ulcer; L97.509 Non-pressure chronic ulcer of other part of unspecified foot with unspecified severity
CPT/HCPCS: 80053; 80061; 82607; 83036; 84439; 84443; 85025; 85651; 86140; 86803; 87389

== ENCOUNTER → 2022-02-26 | Outpatient (CLI) | payer OTHER | END | disposition home or self-care (01) | LOC: LAB 15:26 → LAB SHORT 15:26 | DX: E13.621 Other specified diabetes mellitus with foot ulcer (principal) | CPT/HCPCS: 87070; 87075; 87077; 87147; 87186; 87205 ==

== ENCOUNTER 2022-03-01 12:46 | Inpatient (IN) | payer OTHER ==
[~2022-03-01] VITALS: Ht 185.4 cm; Wt 110.2 kg
[2022-03-01 14:32] LABS: BASOPHILS ABSOLUTE AUTO 0.03 K/mm3 (0.00-0.23); BASOPHILS PERCENT AUTO 0 % (0-2); EOSINOPHILS ABSOLUTE AUTO 0.11 K/mm3 (0.00-0.68); EOSINOPHILS PERCENT AUTO 2 % (0-6); Hematocrit 43.6 % (37.0-53.0); IMMATURE GRAN ABSOLUTE AUTO 0.02 K/mm3 (0.00-0.10); IMMATURE GRAN PERCENT AUTO 0 % (0-1); LYMPHOCYTES ABSOLUTE AUTO 2.35 K/mm3 (0.84-5.20); LYMPHOCYTES PERCENT AUTO 33 % (21-46); MONOCYTES ABSOLUTE AUTO 0.54 K/mm3 (0.16-1.47); MONOCYTES PERCENT AUTO 8 % (4-13); Mean Corpuscular HGB 29.9 pg (26.0-34.0); Mean Corpuscular HGB Conc 34.4 g/dL (31.5-36.5); Mean Corpuscular Volume 87 fL (80-100); Mean Platelet Volume 11.1 fL (9.1-12.4); NEUTROPHILS ABSOLUTE AUTO 4.15 K/mm3 (1.96-9.15); NEUTROPHILS PERCENT AUTO 58 % (41-73); Platelet Count 209 K/mm3 (150-400); RDW Coefficient Variation 13.1 % (11.7-14.2); RDW Standard Deviation 41.5 fL (35.1-46.3); Red Blood Cell Count 5.02 M/mm3 (4.30-5.90)
[2022-03-01 14:50] LABS: Albumin, Blood 2.9 g/dL (3.4-5.0); Albumin/Globulin Ratio 0.5 (0.8-1.8); Bilirubin, Total 0.7 mg/dL (0.1-1.0); Bun/Creatinine Ratio 18.5 (12.0-20.0); Calcium, Blood 8.9 mg/dL (8.5-10.1); Creatinine, Blood 0.76 mg/dL (0.60-1.20); Globulin, Blood 5.7 g/dL (2.2-4.0); Potassium, Blood 4.3 mmol/L (3.5-5.5); Total Protein, Blood 8.6 g/dL (6.4-8.2)
--- NOTE | 2022-03-01 18:18 | NUR ---
PT ARRIVED TO UNIT FROM ED ORIENTED TO ROOM/CALL LIGHT. ADMINISTERED MEDS PER ORDERS. LCA. RESPIRATIONS EASY ON RA. HRR. BTX4. PT INDEPENDENT IN ROOM. DRESSING TO L FOOT.
--- NOTE | 2022-03-01 19:00 | NUR ---
RECEIVED REPORT AND ASSUMED CARE OF PT. DR. DAWN AT BEDSIDE. PT DENIES ANY NEEDS AT THIS TIME. CALL LIGHT IN REACH.
[2022-03-01 21:26] LABS: Source, Urine Clean Catch
[2022-03-01 21:38] LABS: Appearance, Urine Cloudy (Clear); Bilirubin, Urine Neg (Neg); Blood, Urine 2+ (Neg); Color, Urine Yellow (P-Yellow); Glucose Qualitative, Urine 4+ (Neg); Ketones, Urine Neg (Neg); Leukocyte Esterase, Urine 2+ (Neg); Nitrite, Urine Neg (Neg); Protein, Urine 3+ (Neg); Urobilinogen, Urine 1+ (Normal)
[2022-03-01 21:53] LABS: WBC Cast 0-2 /lpf (0); White Blood Cells, Urine 50-100 /hpf (0-5)
[2022-03-01 21:54] LABS: Bacteria Many /hpf; Red Blood Cells, Urine 0-2 /hpf (0-2); Squamous Epithelial Cells Few /hpf (Few)
[2022-03-02 04:26] LABS: BASOPHILS ABSOLUTE AUTO 0.03 K/mm3 (0.00-0.23); BASOPHILS PERCENT AUTO 1 % (0-2); EOSINOPHILS ABSOLUTE AUTO 0.17 K/mm3 (0.00-0.68); EOSINOPHILS PERCENT AUTO 3 % (0-6); Hematocrit 39.3 % (37.0-53.0); Hemoglobin 13.1 g/dL (13.5-17.5); IMMATURE GRAN ABSOLUTE AUTO 0.02 K/mm3 (0.00-0.10); IMMATURE GRAN PERCENT AUTO 0 % (0-1); LYMPHOCYTES ABSOLUTE AUTO 2.64 K/mm3 (0.84-5.20); LYMPHOCYTES PERCENT AUTO 40 % (21-46); MONOCYTES ABSOLUTE AUTO 0.59 K/mm3 (0.16-1.47); MONOCYTES PERCENT AUTO 9 % (4-13); Mean Corpuscular HGB 29.6 pg (26.0-34.0); Mean Corpuscular HGB Conc 33.3 g/dL (31.5-36.5); Mean Corpuscular Volume 89 fL (80-100); Mean Platelet Volume 10.9 fL (9.1-12.4); NEUTROPHILS ABSOLUTE AUTO 3.12 K/mm3 (1.96-9.15); NEUTROPHILS PERCENT AUTO 47 % (41-73); Platelet Count 177 K/mm3 (150-400); RDW Coefficient Variation 13.2 % (11.7-14.2); RDW Standard Deviation 42.8 fL (35.1-46.3); Red Blood Cell Count 4.43 M/mm3 (4.30-5.90); White Blood Cell Count 6.57 K/mm3 (4.00-11.30)
[2022-03-02 05:50] LABS: Albumin, Blood 2.6 g/dL (3.4-5.0); Albumin/Globulin Ratio 0.6 (0.8-1.8); Bilirubin, Total 0.7 mg/dL (0.1-1.0); Bun/Creatinine Ratio 17.6 (12.0-20.0); Calcium, Blood 8.5 mg/dL (8.5-10.1); Creatinine, Blood 0.91 mg/dL (0.60-1.20); Globulin, Blood 4.2 g/dL (2.2-4.0); Potassium, Blood 4.2 mmol/L (3.5-5.5); Total Protein, Blood 6.8 g/dL (6.4-8.2)
--- NOTE | 2022-03-02 07:04 | NUR ---
SHIFT SUMMARY: SAUL IS A&OX4. VSS, NO ACUTE EVENTS OVERNIGHT. DRESSING CHANGED TO LEFT FOOT D/T DRAINAGE. BLOOD SUGAR TRENDING DOWN. HE IS NPO EXCEPT FOR WATER ONLY. IV TO R AC PATENT. HE IS INDEPDNENT IN THE ROOM, ENCOURAGED TO PUT HIS BOOT ON PRIOR TO AMBULATION. HE IS LYING IN BED WITH THE CALL LIGHT IN REACH. WILL REPORT TO DAY SHIFT RN.
--- NOTE | 2022-03-02 11:55 | NUR ---
Pt. is awake in bed and welcomes my visit. Pt. is unsettled spiritually about the nature of God and suffering. With theraputic listening and a calming presence, Pt. displays evidence of engagement and trust. Established rapport and facilitated a life review. Pt. visit was interrupted by medicla staff from imaging coming to take him for an MRI. Pt. verbalized gratitude for the spiritual care visit, and verbalized interest in having this supervisor bit and shank department return.
--- NOTE | 2022-03-02 13:35 | NUR ---
BLOOD GLUCOSE CHECKED BY MANSOOR [place] AFTER PT ATE HIS LUNCH. DR. QUINTERO NOTIFIED OF ELEVATED BLOOD GLUCOSE OF 311 AND REPORTED OK TO COVER WITH CORRECTION SCALE INSULIN.
--- NOTE | 2022-03-02 14:00 | NUR ---
DRESSING CHANGED DRESSING REMOVED FROM RLE AND WOUND WAS CLEANSED WITH WOUND CLEANSER. CALCIUM ALGENATE REAPPLIED WAS PRESENT UNDER PREVIOUS DRESSING. 4X4 GAUZE, KERLEX APPLIED. LAURITA WRAP LOOSELY APPLIED TO HOLD DRESSING IN PLACE. PT PROVIDED WITH EDUCATION REGARDING DRESSING CHANGES. DRESSING SUPPLIES SENT HOME WITH THE PATIENT.
[2022-03-02] MEDS ORDERED: BACTRIM DS TAB1 EAC2 PO (15:08)
--- NOTE | 2022-03-02 15:48 | NUR ---
DISCHARGE PT PROVIDED WITH WRITTEN AND VERBAL DISCHARGE INSTRUCTIONS; HE REPORTED UNDERSTANDING. PT EDUCATED TO FOLLOW-UP WITH DR. VARMA'S OFFICE WITHIN ONE WEEK AND TO CALL TODAY TO SCHEDULE AND APPOINTMENT; PT REPORTED HE UNDERSTOOD. DRESSING SUPPLIES PROVIDED. CT SCAN COMPLETED PRIOR TO DISCHARGE. BLOOD GLUCOSE HAS REMAINED ELEVATED DURING PT'S STAY, EMPHASIZED IMPORTANCE OF MONITORING AND CORRECTING ELEVATED GLUCOSE LEVELS, WELL FOLLOWING AN ADA DIET. PT REPORTED UNDERSTANDING. PT AMBULATED OUT WITHOUT ASSISTANCE. AT APPROXIMATELY 1530.
== END 2022-03-02 15:32 | disposition home or self-care (01) | DRG 565 ==
LOC: ER 12:46 → SURS 17:10
PROVIDERS: Physician Assistant; ADMIT Internal Medicine
DX: T87.44 Infection of amputation stump, left lower extremity (principal); L03.116 Cellulitis of left lower limb; M86.8X7 Other osteomyelitis, ankle and foot; E11.69 Type 2 diabetes mellitus with other specified complication; E11.621 Type 2 diabetes mellitus with foot ulcer; E11.628 Type 2 diabetes mellitus with other skin complications; E11.65 Type 2 diabetes mellitus with hyperglycemia; J45.909 Unspecified asthma, uncomplicated; L97.529 Non-pressure chronic ulcer of other part of left foot with unspecified severity; E78.5 Hyperlipidemia, unspecified; E11.40 Type 2 diabetes mellitus with diabetic neuropathy, unspecified; Z91.018 Allergy to other foods; Z91.040 Latex allergy status; Z91.013 Allergy to seafood; Z89.432 Acquired absence of left foot; Z79.2 Long term (current) use of antibiotics; Z79.4 Long term (current) use of insulin; Z79.899 Other long term (current) drug therapy; Y83.5 Amputation of limb(s) as the cause of abnormal reaction of the patient, or of later complication, without mention of misadventure at the time of the procedure
CPT/HCPCS: 36415; 73700; 73718; 80053; 81001; 82947; 85025; 85651; 87086; 99285-25; A9270; J1815; J2543; J7030

== ENCOUNTER 2022-05-14 03:00 | Day surgery (SDC) | payer OTHER ==
[~2022-05-14 03:00] MED LIST changes: +BACTRIM DS TAB1 EAC2 PO
== END 2022-05-15 00:29 | disposition home or self-care (01) ==
LOC: WOUND 03:00
DX: L89.894 Pressure ulcer of other site, stage 4 (principal); M86.372 Chronic multifocal osteomyelitis, left ankle and foot; E11.622 Type 2 diabetes mellitus with other skin ulcer
CPT/HCPCS: A9270; G0463

== ENCOUNTER 2022-05-21 02:12 | Day surgery (SDC) | payer OTHER | END 2022-05-21 23:59 | disposition home or self-care (01) | LOC: WOUND 02:12 | DX: E11.622 Type 2 diabetes mellitus with other skin ulcer (principal); L97.525 Non-pressure chronic ulcer of other part of left foot with muscle involvement without evidence of necrosis; L89.894 Pressure ulcer of other site, stage 4; M86.372 Chronic multifocal osteomyelitis, left ankle and foot; E11.51 Type 2 diabetes mellitus with diabetic peripheral angiopathy without gangrene; R77.0 Abnormality of albumin; E11.40 Type 2 diabetes mellitus with diabetic neuropathy, unspecified; E11.65 Type 2 diabetes mellitus with hyperglycemia | CPT/HCPCS: A9270 ==

== ENCOUNTER 2022-05-28 03:18 | Day surgery (SDC) | payer OTHER | END 2022-05-28 23:34 | disposition home or self-care (01) | LOC: WOUND 03:18 | DX: L89.892 Pressure ulcer of other site, stage 2 (principal); E11.622 Type 2 diabetes mellitus with other skin ulcer; M86.372 Chronic multifocal osteomyelitis, left ankle and foot; L89.894 Pressure ulcer of other site, stage 4; E11.51 Type 2 diabetes mellitus with diabetic peripheral angiopathy without gangrene; R77.0 Abnormality of albumin; E11.40 Type 2 diabetes mellitus with diabetic neuropathy, unspecified; E11.65 Type 2 diabetes mellitus with hyperglycemia | CPT/HCPCS: A9270; G0463 ==

== ENCOUNTER 2022-06-04 01:08 | Day surgery (SDC) | payer OTHER | END 2022-06-04 23:24 | disposition home or self-care (01) | LOC: WOUND 01:08 | DX: E11.69 Type 2 diabetes mellitus with other specified complication (principal); E11.621 Type 2 diabetes mellitus with foot ulcer; M86.372 Chronic multifocal osteomyelitis, left ankle and foot; L97.425 Non-pressure chronic ulcer of left heel and midfoot with muscle involvement without evidence of necrosis; L89.894 Pressure ulcer of other site, stage 4; E11.51 Type 2 diabetes mellitus with diabetic peripheral angiopathy without gangrene; E11.65 Type 2 diabetes mellitus with hyperglycemia; R77.0 Abnormality of albumin | CPT/HCPCS: A9270; G0463 ==

== ENCOUNTER 2022-06-17 03:56 | Day surgery (SDC) | payer OTHER | END 2022-06-17 22:59 | disposition home or self-care (01) | LOC: WOUND 03:56 | DX: E11.69 Type 2 diabetes mellitus with other specified complication (principal); M86.372 Chronic multifocal osteomyelitis, left ankle and foot; E11.621 Type 2 diabetes mellitus with foot ulcer; L97.425 Non-pressure chronic ulcer of left heel and midfoot with muscle involvement without evidence of necrosis; L89.894 Pressure ulcer of other site, stage 4; E11.51 Type 2 diabetes mellitus with diabetic peripheral angiopathy without gangrene; R77.0 Abnormality of albumin; E11.40 Type 2 diabetes mellitus with diabetic neuropathy, unspecified; E11.65 Type 2 diabetes mellitus with hyperglycemia; Z89.422 Acquired absence of other left toe(s) | CPT/HCPCS: A9270; G0463 ==

== ENCOUNTER 2022-06-21 02:11 | Day surgery (SDC) | payer OTHER | END 2022-06-21 22:55 | disposition home or self-care (01) | LOC: HBO 02:11 | DX: E11.69 Type 2 diabetes mellitus with other specified complication (principal); M86.372 Chronic multifocal osteomyelitis, left ankle and foot; L89.894 Pressure ulcer of other site, stage 4; E11.622 Type 2 diabetes mellitus with other skin ulcer; E11.51 Type 2 diabetes mellitus with diabetic peripheral angiopathy without gangrene; R77.0 Abnormality of albumin | CPT/HCPCS: 82947; G0277 ==

== ENCOUNTER 2022-06-22 03:53 | Day surgery (SDC) | payer OTHER | END 2022-06-22 23:18 | disposition home or self-care (01) | LOC: HBO 03:53 | DX: E11.69 Type 2 diabetes mellitus with other specified complication (principal); M86.9 Osteomyelitis, unspecified; L89.894 Pressure ulcer of other site, stage 4; E11.622 Type 2 diabetes mellitus with other skin ulcer; E11.51 Type 2 diabetes mellitus with diabetic peripheral angiopathy without gangrene; E11.40 Type 2 diabetes mellitus with diabetic neuropathy, unspecified; E11.65 Type 2 diabetes mellitus with hyperglycemia | CPT/HCPCS: 82947; G0277 ==

== ENCOUNTER 2022-09-16 03:19 | Day surgery (SDC) | payer OTHER | END 2022-09-16 23:24 | disposition home or self-care (01) | LOC: WOUND 03:19 | DX: E11.621 Type 2 diabetes mellitus with foot ulcer (principal); L97.522 Non-pressure chronic ulcer of other part of left foot with fat layer exposed; E11.69 Type 2 diabetes mellitus with other specified complication; M86.372 Chronic multifocal osteomyelitis, left ankle and foot; L89.894 Pressure ulcer of other site, stage 4; E11.622 Type 2 diabetes mellitus with other skin ulcer; I73.9 Peripheral vascular disease, unspecified; R77.0 Abnormality of albumin | CPT/HCPCS: A9270; G0463 ==

== ENCOUNTER 2022-09-23 02:18 | Day surgery (SDC) | payer OTHER | END 2022-09-23 22:54 | disposition home or self-care (01) | LOC: WOUND 02:18 | DX: E11.621 Type 2 diabetes mellitus with foot ulcer (principal); L97.525 Non-pressure chronic ulcer of other part of left foot with muscle involvement without evidence of necrosis; E11.69 Type 2 diabetes mellitus with other specified complication; M86.372 Chronic multifocal osteomyelitis, left ankle and foot; L89.894 Pressure ulcer of other site, stage 4; E11.622 Type 2 diabetes mellitus with other skin ulcer; E11.51 Type 2 diabetes mellitus with diabetic peripheral angiopathy without gangrene; R77.0 Abnormality of albumin | CPT/HCPCS: A9270; G0463 ==

== ENCOUNTER 2022-09-30 03:42 | Day surgery (SDC) | payer OTHER | END 2022-09-30 22:40 | disposition home or self-care (01) | LOC: WOUND 03:42 | DX: E11.69 Type 2 diabetes mellitus with other specified complication (principal); M86.372 Chronic multifocal osteomyelitis, left ankle and foot; L89.894 Pressure ulcer of other site, stage 4; E11.622 Type 2 diabetes mellitus with other skin ulcer; I73.9 Peripheral vascular disease, unspecified; R77.0 Abnormality of albumin | CPT/HCPCS: G0463 ==

== ENCOUNTER 2022-10-15 00:24 | Day surgery (SDC) | payer OTHER | END 2022-10-15 23:09 | disposition home or self-care (01) | LOC: WOUND 00:24 | DX: E11.621 Type 2 diabetes mellitus with foot ulcer (principal); L97.525 Non-pressure chronic ulcer of other part of left foot with muscle involvement without evidence of necrosis; E11.69 Type 2 diabetes mellitus with other specified complication; M86.372 Chronic multifocal osteomyelitis, left ankle and foot; L89.894 Pressure ulcer of other site, stage 4; E11.51 Type 2 diabetes mellitus with diabetic peripheral angiopathy without gangrene; R77.0 Abnormality of albumin; E11.40 Type 2 diabetes mellitus with diabetic neuropathy, unspecified; E11.65 Type 2 diabetes mellitus with hyperglycemia | CPT/HCPCS: G0463 ==

== ENCOUNTER 2022-10-19 00:28 | Day surgery (SDC) | payer OTHER | END 2022-10-19 23:03 | disposition home or self-care (01) | LOC: WOUND 00:28 | DX: E11.621 Type 2 diabetes mellitus with foot ulcer (principal); L97.525 Non-pressure chronic ulcer of other part of left foot with muscle involvement without evidence of necrosis; E11.69 Type 2 diabetes mellitus with other specified complication; M86.372 Chronic multifocal osteomyelitis, left ankle and foot; L89.894 Pressure ulcer of other site, stage 4; E11.622 Type 2 diabetes mellitus with other skin ulcer; E11.51 Type 2 diabetes mellitus with diabetic peripheral angiopathy without gangrene; E11.40 Type 2 diabetes mellitus with diabetic neuropathy, unspecified; E11.65 Type 2 diabetes mellitus with hyperglycemia; R77.0 Abnormality of albumin ==

== ENCOUNTER 2022-10-28 02:21 | Day surgery (SDC) | payer OTHER | END 2022-10-28 22:41 | disposition home or self-care (01) | LOC: WOUND 02:21 | DX: E11.69 Type 2 diabetes mellitus with other specified complication (principal); M86.372 Chronic multifocal osteomyelitis, left ankle and foot; L89.894 Pressure ulcer of other site, stage 4; E11.621 Type 2 diabetes mellitus with foot ulcer; E11.622 Type 2 diabetes mellitus with other skin ulcer; E11.51 Type 2 diabetes mellitus with diabetic peripheral angiopathy without gangrene; E11.40 Type 2 diabetes mellitus with diabetic neuropathy, unspecified; E11.65 Type 2 diabetes mellitus with hyperglycemia; M89.372 Hypertrophy of bone, left ankle and foot | CPT/HCPCS: G0463 ==

== ENCOUNTER 2022-11-04 02:14 | Day surgery (SDC) | payer OTHER | END 2022-11-04 22:46 | disposition home or self-care (01) | LOC: WOUND 02:14 | DX: E11.621 Type 2 diabetes mellitus with foot ulcer (principal); L97.522 Non-pressure chronic ulcer of other part of left foot with fat layer exposed; E11.69 Type 2 diabetes mellitus with other specified complication; L89.894 Pressure ulcer of other site, stage 4; E11.622 Type 2 diabetes mellitus with other skin ulcer; E11.51 Type 2 diabetes mellitus with diabetic peripheral angiopathy without gangrene; R77.0 Abnormality of albumin; E11.40 Type 2 diabetes mellitus with diabetic neuropathy, unspecified; E11.65 Type 2 diabetes mellitus with hyperglycemia; M86.372 Chronic multifocal osteomyelitis, left ankle and foot | CPT/HCPCS: G0463 ==

== ENCOUNTER 2022-12-02 01:03 | Day surgery (SDC) | payer OTHER | END 2022-12-02 22:42 | disposition home or self-care (01) | LOC: WOUND 01:03 | DX: E11.621 Type 2 diabetes mellitus with foot ulcer (principal); L97.522 Non-pressure chronic ulcer of other part of left foot with fat layer exposed; E11.69 Type 2 diabetes mellitus with other specified complication; M86.372 Chronic multifocal osteomyelitis, left ankle and foot; L89.894 Pressure ulcer of other site, stage 4; E11.51 Type 2 diabetes mellitus with diabetic peripheral angiopathy without gangrene; R77.0 Abnormality of albumin; E11.40 Type 2 diabetes mellitus with diabetic neuropathy, unspecified; E11.65 Type 2 diabetes mellitus with hyperglycemia | CPT/HCPCS: G0463 ==

== ENCOUNTER 2022-12-22 05:39 | Day surgery (SDC) | payer OTHER | END 2022-12-22 23:01 | disposition home or self-care (01) | LOC: WOUND 05:39 | DX: E11.621 Type 2 diabetes mellitus with foot ulcer (principal); L97.525 Non-pressure chronic ulcer of other part of left foot with muscle involvement without evidence of necrosis; L89.894 Pressure ulcer of other site, stage 4; E11.622 Type 2 diabetes mellitus with other skin ulcer; M86.372 Chronic multifocal osteomyelitis, left ankle and foot; E11.51 Type 2 diabetes mellitus with diabetic peripheral angiopathy without gangrene; R77.0 Abnormality of albumin; E11.40 Type 2 diabetes mellitus with diabetic neuropathy, unspecified; E11.65 Type 2 diabetes mellitus with hyperglycemia | CPT/HCPCS: G0463 ==

== ENCOUNTER 2023-01-06 02:42 | Day surgery (SDC) | payer OTHER | END 2023-01-06 23:31 | disposition home or self-care (01) | LOC: WOUND 02:42 | DX: E11.621 Type 2 diabetes mellitus with foot ulcer (principal); L97.525 Non-pressure chronic ulcer of other part of left foot with muscle involvement without evidence of necrosis; L89.894 Pressure ulcer of other site, stage 4; E11.622 Type 2 diabetes mellitus with other skin ulcer; E11.69 Type 2 diabetes mellitus with other specified complication; M86.372 Chronic multifocal osteomyelitis, left ankle and foot; I73.9 Peripheral vascular disease, unspecified; R77.0 Abnormality of albumin | CPT/HCPCS: G0463 ==

== ENCOUNTER 2023-01-15 17:09 | Inpatient (IN) | payer OTHER ==
[~2023-01-15] VITALS: Ht 182.9 cm; Wt 116.9 kg
[~2023-01-15 17:09] MED LIST changes: +THERA-D2000 UNIT PO; -VITAMIN D-32000 UNIT PO
[2023-01-15 17:58] LABS: BASOPHILS ABSOLUTE AUTO 0.06 K/mm3 (0.00-0.23); BASOPHILS PERCENT AUTO 1 % (0-2); EOSINOPHILS PERCENT AUTO 1 % (0-6); Hematocrit 38.2 % (37.0-53.0); Hemoglobin 13.5 g/dL (13.5-17.5); IMMATURE GRAN ABSOLUTE AUTO 0.02 K/mm3 (0.00-0.10); IMMATURE GRAN PERCENT AUTO 0 % (0-1); LYMPHOCYTES ABSOLUTE AUTO 2.93 K/mm3 (0.84-5.20); LYMPHOCYTES PERCENT AUTO 25 % (21-46); MONOCYTES ABSOLUTE AUTO 1.02 K/mm3 (0.16-1.47); MONOCYTES PERCENT AUTO 9 % (4-13); Mean Corpuscular HGB 30.6 pg (26.0-34.0); Mean Corpuscular HGB Conc 35.3 g/dL (31.5-36.5); Mean Corpuscular Volume 87 fL (80-100); Mean Platelet Volume 10.6 fL (9.1-12.4); NEUTROPHILS ABSOLUTE AUTO 7.58 K/mm3 (1.96-9.15); NEUTROPHILS PERCENT AUTO 65 % (41-73); Platelet Count 279 K/mm3 (150-400); RDW Coefficient Variation 11.9 % (11.7-14.2); RDW Standard Deviation 37.8 fL (35.1-46.3); Red Blood Cell Count 4.41 M/mm3 (4.30-5.90); White Blood Cell Count 11.71 K/mm3 (4.00-11.30)
[2023-01-15 18:16] LABS: Albumin, Blood 2.8 g/dL (3.4-5.0); Albumin/Globulin Ratio 0.5 (0.8-1.8); Bilirubin, Total 0.8 mg/dL (0.1-1.0); Bun/Creatinine Ratio 18.5 (12.0-20.0); Calcium, Blood 8.9 mg/dL (8.5-10.1); Creatinine, Blood 1.51 mg/dL (0.60-1.20); Potassium, Blood 4.6 mmol/L (3.5-5.5); Total Protein, Blood 8.8 g/dL (6.4-8.2)
[2023-01-15 21:47] VITALS: BP 137/79
[2023-01-15] MEDS ORDERED: HYDHCL25 PO (22:41)
[2023-01-15] MEDS ORDERED: ATOR10 PO (22:42)
[2023-01-15] MEDS ORDERED: ADMELOG SO100 UNIT/2 SC (23:01)
[2023-01-15] MEDS ORDERED: LISINOPRIL-HCT1 EACH PO (23:02)
[2023-01-16 03:58] VITALS: BP 142/73
--- NOTE | 2023-01-16 04:08 | NUR ---
SUMMARY: REPORT RECIEVED FROM JANAK ACKERMAN RN AND PT T/F VIA W/C TO ROOM 339 AT 2133. HE WAS ORIENTED TO ROOM AND CALL SYSTEM, IS A/OX4 AND IS PLEASANT AND COOPERATIVE W/CARE. HE'S AWARE OF LIMITATIONS AND KNOWS TO CALL FOR ASSIST PRN BUT IS INDEPENDENT IN ROOM W/WALKING BOOT/HEEL TOUCH MOBILITY TOLERATED. HE USED URINAL AT EOB AND REFUSED SCD'S. PT HAS A CHRONIC WOUND TO THE UNDERSIDE OF HIS L.FOOT AT THE BASE OF HIS PREVIOUSLY AMPUTATED TOES. WOUND CLEANSED W/SKINTEGRITY, PHOTOS TAKEN THEN PETROLEUM GAUZE APPLIED AND FOOT WRAPPED W/KERLEX AND LAURITA BANDAGE, SEE PICS FOR DETAILS. CELLULITIS EXTENDS FROM BASE TO TOP OF FOOT, UP ANKLE AND MCKEON. PODIATRY CX CALLED TO DR.TOVEY MORTENSEN.SERVICE AND PT WAS MADE NPO AT DE PER ORDERS. IV ABX RECIEVED IN ER, 2ND NS BOLUS COMPLETED UPON ARRIVAL TO FLOOR AND LR NOW INFUSES AT 100 ML/HR. CBG'S >300 W/SCHEDULED AND HSS INSULIN RECIEVED PER EMAR, AM LABS PENDING. PT DENIED PAIN COMPLAINTS AFTER RECIEVING PERCOCET IN ER AND HAS SLEPT COMFORTABLY MOST OF NOCTE. NO ACUTE CHANGES, VSS/AFEBRILE. WCTM AND REPORT TO DAY RN.
[2023-01-16 04:22] LABS: BASOPHILS ABSOLUTE AUTO 0.03 K/mm3 (0.00-0.23); BASOPHILS PERCENT AUTO 0 % (0-2); EOSINOPHILS PERCENT AUTO 1 % (0-6); Hematocrit 32.8 % (37.0-53.0); Hemoglobin 11.2 g/dL (13.5-17.5); IMMATURE GRAN ABSOLUTE AUTO 0.02 K/mm3 (0.00-0.10); IMMATURE GRAN PERCENT AUTO 0 % (0-1); LYMPHOCYTES ABSOLUTE AUTO 2.11 K/mm3 (0.84-5.20); LYMPHOCYTES PERCENT AUTO 29 % (21-46); MONOCYTES ABSOLUTE AUTO 0.77 K/mm3 (0.16-1.47); MONOCYTES PERCENT AUTO 11 % (4-13); Mean Corpuscular HGB Conc 34.1 g/dL (31.5-36.5); Mean Corpuscular Volume 88 fL (80-100); Mean Platelet Volume 10.6 fL (9.1-12.4); NEUTROPHILS ABSOLUTE AUTO 4.24 K/mm3 (1.96-9.15); NEUTROPHILS PERCENT AUTO 58 % (41-73); Platelet Count 203 K/mm3 (150-400); RDW Coefficient Variation 11.9 % (11.7-14.2); RDW Standard Deviation 38.2 fL (35.1-46.3); Red Blood Cell Count 3.73 M/mm3 (4.30-5.90); White Blood Cell Count 7.27 K/mm3 (4.00-11.30)
[2023-01-16 04:48] LABS: Albumin, Blood 2.3 g/dL (3.4-5.0); Albumin/Globulin Ratio 0.5 (0.8-1.8); Bilirubin, Total 0.6 mg/dL (0.1-1.0); Bun/Creatinine Ratio 22.8 (12.0-20.0); Calcium, Blood 7.9 mg/dL (8.5-10.1); Creatinine, Blood 0.97 mg/dL (0.60-1.20); Globulin, Blood 4.6 g/dL (2.2-4.0); Potassium, Blood 4.7 mmol/L (3.5-5.5); Total Protein, Blood 6.9 g/dL (6.4-8.2)
[2023-01-16 07:39] VITALS: BP 131/67
[2023-01-16 14:45] VITALS: BP 137/63
--- NOTE | 2023-01-16 15:42 | NUR ---
SHIFT SUMMARY MR TOMLINSON IS A&OX4. HE WAS NPO FOR CONSULT BY DR DAWN THIS MORNING. DR DAWN SAW HIM EARLY THIS MORNING AND PLAN NOT TO HAVE SURGERY TODAY. DR DE LUNA INFORMED - DIET CHANGED TO ADA DIET AND AC/HS ACCUCUCKS. PT CONTINUES TO HAVE IVF AT 100CC/HR. LEFT FOOT REDRESSED BY DR DAWN. BANDAGE REMAINS C,D,I. LEFT FOOT SWOLLEN - ELEVATED ON 2 PILLOWS. REDNESS AROUND THE ANKLE ABOVE THE DRESSING THAT PT DESCRIBE TENDER TO LIGHT TOUCH. HE HAS DECLINED PAIN MEDS SO TODAY. BLOOD SUGAR WAS ELEVATED AT 270 BEFORE LUNCH, COVERED WITH SLIDING SCALE. PM INSULIN DOSE INCREASED BY MD. PHARMACIST CALLED AND PT VERIFIED THAT THIS IS THE DOSE HE TAKES AT HOME. FAMILY TO BEDSIDE. BED LOW, CALL LIGHT IN REACH.
[2023-01-16 19:58] VITALS: BP 150/63
[2023-01-17 04:40] LABS: BASOPHILS ABSOLUTE AUTO 0.03 K/mm3 (0.00-0.23); BASOPHILS PERCENT AUTO 1 % (0-2); EOSINOPHILS ABSOLUTE AUTO 0.15 K/mm3 (0.00-0.68); EOSINOPHILS PERCENT AUTO 2 % (0-6); Hematocrit 30.4 % (37.0-53.0); Hemoglobin 10.6 g/dL (13.5-17.5); IMMATURE GRAN ABSOLUTE AUTO 0.01 K/mm3 (0.00-0.10); IMMATURE GRAN PERCENT AUTO 0 % (0-1); LYMPHOCYTES ABSOLUTE AUTO 2.59 K/mm3 (0.84-5.20); LYMPHOCYTES PERCENT AUTO 41 % (21-46); MONOCYTES ABSOLUTE AUTO 0.69 K/mm3 (0.16-1.47); MONOCYTES PERCENT AUTO 11 % (4-13); Mean Corpuscular HGB 30.7 pg (26.0-34.0); Mean Corpuscular HGB Conc 34.9 g/dL (31.5-36.5); Mean Corpuscular Volume 88 fL (80-100); Mean Platelet Volume 10.4 fL (9.1-12.4); NEUTROPHILS ABSOLUTE AUTO 2.93 K/mm3 (1.96-9.15); NEUTROPHILS PERCENT AUTO 46 % (41-73); Platelet Count 190 K/mm3 (150-400); RDW Coefficient Variation 11.9 % (11.7-14.2); RDW Standard Deviation 38.2 fL (35.1-46.3); Red Blood Cell Count 3.45 M/mm3 (4.30-5.90)
[2023-01-17 05:07] LABS: Anion Gap 7 mmol/L (6-16); Blood Urea Nitrogen 11 mg/dL (8-24); Bun/Creatinine Ratio 13.3 (12.0-20.0); CO2, Blood 26 mmol/L (21-32); Calcium, Blood 7.9 mg/dL (8.5-10.1); Chloride, Blood 105 mmol/L (98-108); Creatinine, Blood 0.83 mg/dL (0.60-1.20); Glomerular Filtration Rate 108 (60-); Glucose, Blood 211 mg/dL (70-99); Potassium, Blood 4.3 mmol/L (3.5-5.5); Sodium, Blood 138 mmol/L (136-145); Vancomycin, Trough 10.8 ug/mL (5.0-10.0)
[2023-01-17 07:36] VITALS: BP 132/74
[2023-01-17 14:43] VITALS: BP 148/76
--- NOTE | 2023-01-17 18:22 | NUR ---
SHIFT SUMMARY: PT RESTING COMFORTABLY IN BED. IND IN ROOM. FOOT ASSESSED BY PODIETRY TODAY AND REWRAPPED PER ORDERS C/D/I. WOUND PICTURES UPDATED IN CHART TO SHOW HEALING WOUND ON FOOT. PT CONTINUES TO GET IV ANTIBIOTICS TOLERATING WELL. PT CALLS APPROPRIATELY AND HAS NO CURRENT NEEDS OR QUESTIONS.
[2023-01-18] VITALS (10 sets, daily range): BP systolic 126–157; BP diastolic 63–84
[2023-01-18 05:08] LABS: BASOPHILS ABSOLUTE AUTO 0.05 K/mm3 (0.00-0.23); BASOPHILS PERCENT AUTO 1 % (0-2); EOSINOPHILS ABSOLUTE AUTO 0.19 K/mm3 (0.00-0.68); EOSINOPHILS PERCENT AUTO 4 % (0-6); Hematocrit 32.3 % (37.0-53.0); Hemoglobin 11.1 g/dL (13.5-17.5); IMMATURE GRAN ABSOLUTE AUTO 0.01 K/mm3 (0.00-0.10); IMMATURE GRAN PERCENT AUTO 0 % (0-1); LYMPHOCYTES PERCENT AUTO 46 % (21-46); MONOCYTES ABSOLUTE AUTO 0.49 K/mm3 (0.16-1.47); MONOCYTES PERCENT AUTO 9 % (4-13); Mean Corpuscular HGB 30.2 pg (26.0-34.0); Mean Corpuscular HGB Conc 34.4 g/dL (31.5-36.5); Mean Corpuscular Volume 88 fL (80-100); Mean Platelet Volume 10.5 fL (9.1-12.4); NEUTROPHILS ABSOLUTE AUTO 2.21 K/mm3 (1.96-9.15); NEUTROPHILS PERCENT AUTO 41 % (41-73); Platelet Count 209 K/mm3 (150-400); RDW Coefficient Variation 11.9 % (11.7-14.2); RDW Standard Deviation 38.3 fL (35.1-46.3); Red Blood Cell Count 3.67 M/mm3 (4.30-5.90); White Blood Cell Count 5.45 K/mm3 (4.00-11.30)
[2023-01-18 05:53] LABS: Anion Gap 7 mmol/L (6-16); Blood Urea Nitrogen 9 mg/dL (8-24); Bun/Creatinine Ratio 10.9 (12.0-20.0); CO2, Blood 28 mmol/L (21-32); Calcium, Blood 8.6 mg/dL (8.5-10.1); Chloride, Blood 106 mmol/L (98-108); Creatinine, Blood 0.83 mg/dL (0.60-1.20); Glomerular Filtration Rate 108 (60-); Glucose, Blood 131 mg/dL (70-99); Potassium, Blood 4.1 mmol/L (3.5-5.5); Sodium, Blood 141 mmol/L (136-145); Vancomycin, Trough 14.9 ug/mL (5.0-10.0)
--- NOTE | 2023-01-18 17:24 | NUR ---
SHIFT SUMMARY PT A&O X4, CALM AND COOPERATIVE WITH PLAN OF CARE. ECHO AND EKG PERFERMED TODAY DUE TO PT HAVING A SURGERY TODAY AT 1700 ON HIS LEFT FOOT. HAS BEEN NPO SINCE 0700 TODAY. INDEPENDENT IN ROOM. PT's NOON CBG WAS 109, SHORTLY AFTER PT STATED HE FELT LIKE HE WAS EXPERIENCING HYPOGLYCEMIA. PT BS TAKEN AGAIN AND AT 98. REPORTED TO DR WHO ORDERED FLUIDS TO BE GIVEN. PT STATED HE FELT MUCH BETTER. PT HAS HAD NO COMPLAINTS OF PAIN. PT WAS JUST TAKEN FROM THE MEDICAL FLOOR TO HIS SURGERY AND WILL BE RETURNING AFTER RECOVERING.
--- NOTE | 2023-01-18 17:42 | NUR ---
History, Chart, Medications and Allergies reviewed before start of procedure. Lungs clear T/O to Auscultation. Patient confirms NPO status and agrees with scheduled surgery. Pre-Op teaching done. Pt verbalizes understanding.
--- NOTE | 2023-01-18 17:54 | NUR ---
PT TAKEN TO PACU TO WAIT FOR SURGERY. REPORT TO ROS SHAHID.
[2023-01-19 05:08] LABS: BASOPHILS ABSOLUTE AUTO 0.01 K/mm3 (0.00-0.23); BASOPHILS PERCENT AUTO 0 % (0-2); EOSINOPHILS PERCENT AUTO 0 % (0-6); Hemoglobin 11.3 g/dL (13.5-17.5); IMMATURE GRAN ABSOLUTE AUTO 0.01 K/mm3 (0.00-0.10); IMMATURE GRAN PERCENT AUTO 0 % (0-1); LYMPHOCYTES ABSOLUTE AUTO 0.84 K/mm3 (0.84-5.20); LYMPHOCYTES PERCENT AUTO 17 % (21-46); MONOCYTES ABSOLUTE AUTO 0.12 K/mm3 (0.16-1.47); MONOCYTES PERCENT AUTO 3 % (4-13); Mean Corpuscular HGB 29.7 pg (26.0-34.0); Mean Corpuscular HGB Conc 33.2 g/dL (31.5-36.5); Mean Corpuscular Volume 89 fL (80-100); Mean Platelet Volume 10.7 fL (9.1-12.4); NEUTROPHILS ABSOLUTE AUTO 3.89 K/mm3 (1.96-9.15); NEUTROPHILS PERCENT AUTO 80 % (41-73); Platelet Count 244 K/mm3 (150-400); RDW Coefficient Variation 11.9 % (11.7-14.2); RDW Standard Deviation 37.7 fL (35.1-46.3); Red Blood Cell Count 3.81 M/mm3 (4.30-5.90); White Blood Cell Count 4.87 K/mm3 (4.00-11.30)
[2023-01-19 05:55] LABS: Albumin, Blood 2.2 g/dL (3.4-5.0); Albumin/Globulin Ratio 0.4 (0.8-1.8); Bilirubin, Total 0.6 mg/dL (0.1-1.0); Bun/Creatinine Ratio 18.3 (12.0-20.0); Calcium, Blood 8.5 mg/dL (8.5-10.1); Creatinine, Blood 0.88 mg/dL (0.60-1.20); Globulin, Blood 5.3 g/dL (2.2-4.0); Potassium, Blood 5.3 mmol/L (3.5-5.5); Total Protein, Blood 7.5 g/dL (6.4-8.2)
[2023-01-19 05:58] VITALS: BP 143/81
[2023-01-19 08:30] VITALS: BP 137/69
[2023-01-19 15:39] VITALS: BP 120/62
--- NOTE | 2023-01-19 18:04 | NUR ---
PATIENT A/OX4, PLEASANT AND COOPERATIVE WITH CARE. WORKED WITH PT TODAY. UP WITH WALKING BOOT AND FWW. 25% HEEL TOUCH WB ON R FOOT. DR DAWN IN THIS AM AND CHANGED DRESSING WHICH REMAINS C/D/I. VSS, ON RA. PAIN WELL CONTROLLED WITH NORCO AND TYLENOL X1 THIS SHIFT. INSULIN ADJUSTED TODAY FOR BETTER CONTROL. 60 INSULIN GLARGINE TO BE GIVEN TONIGHT AND THEN PATIENT CAN RESUME 130 UNTIS TOMORROW NIGHT. BLOOD SUGARS CHANGED TO Q4 HOURS. NO NEW CONCERNS THIS SHIFT.
[2023-01-19 20:59] VITALS: BP 142/79
[2023-01-20 03:50] VITALS: BP 116/67
[2023-01-20 06:00] LABS: Bun/Creatinine Ratio 26.9 (12.0-20.0); Calcium, Blood 8.4 mg/dL (8.5-10.1); Creatinine, Blood 0.85 mg/dL (0.60-1.20)
--- NOTE | 2023-01-20 06:39 | NUR ---
SHIFT SUMMARY: PT A&O X4. PT PLEASANT AND COOPERATIVE WITH CARE. NO ACUTE CHANGES WITH PT THIS SHIFT. PT RECEIVED IV ABX AT 0000 AND 0600. PT INDEPENDENT IN ROOM. NO C/O PAIN THIS SHIFT. PT SLEPT THROUGHOUT EVENING. DRESSING C/D/I. PT SHOWERED LAST NIGHT ABLE TO TOLERATE WEIGHT ON R. FOOT. 60 U LONG ACTING GIVEN PER EMAR. PT ON Q4 BLOOD SUGAR CHECKS. CALL LIGHT IN REACH. BED IN LOWEST POSITION. WILL CONTINUE TO MONITOR.
[2023-01-20] MEDS ORDERED: VISBIOME 112.51 EACH PO (13:08)
[2023-01-20] MEDS ORDERED: ACET325 PO (13:08)
[2023-01-20] MEDS ORDERED: SEMGLEE (Y100 UNIT/2 SC (13:10)
[2023-01-20] MEDS ORDERED: HUMALOG KW100 UNIT/1 SC (13:11)
[2023-01-20 14:14] VITALS: BP 126/54
--- NOTE | 2023-01-20 15:30 | NUR ---
PATIENT D/C'D TO HOME WITH FAMILY. DC INSTRUCTIONS AND EDUCATION DISCUSSED WITH PATIENT AND COPY PROVIDED. RX MEDICATIONS FAXED TO [facility]. JUSTIN APPOINTMENT TOMORROW AT 1400. PATIENT HAS NEXT WOUND CARE APPOINTMENT ON TUESDAY. POWERGLIDE LEFT IN PLACE FOR MALTED MILK MASHER ANTIBIOTICS. PATIENT DENIES ANY FURTHER QUESTIONS OR CONCERNS.
[2023-01-21] MEDS ORDERED: CEFTRIAXONE2 G1 IV (14:05)
== END 2023-01-20 15:35 | disposition home or self-care (01) | DRG 854 ==
LOC: ER 17:09 → MEDS 21:10
PROVIDERS: Emergency Medicine; Family Medicine; Nurse Practitioner Acute Care; Podiatrist Foot & Ankle Surgery; ADMIT Student in an Organized Health Care Education/Training Program
PROC: 3E03329 Introduction of Other Anti-infective into Peripheral Vein, Percutaneous Approach (ICD-10-PCS; 2023-01-15)
PROC: 0Y6N0ZB Detachment at Left Foot, Partial 2nd Ray, Open Approach (ICD-10-PCS; 2023-01-18)
PROC: 0Y6N0ZC Detachment at Left Foot, Partial 3rd Ray, Open Approach (ICD-10-PCS; 2023-01-18)
PROC: 0Y6N0ZD Detachment at Left Foot, Partial 4th Ray, Open Approach (ICD-10-PCS; 2023-01-18)
PROC: 0Y6N0ZF Detachment at Left Foot, Partial 5th Ray, Open Approach (ICD-10-PCS; 2023-01-18)
PROC: 0Y6N0Z9 Detachment at Left Foot, Partial 1st Ray, Open Approach (ICD-10-PCS; principal; 2023-01-18 18:30)
DX: A41.01 Sepsis due to Methicillin susceptible Staphylococcus aureus (principal); E87.1 Hypo-osmolality and hyponatremia; L03.116 Cellulitis of left lower limb; M86.172 Other acute osteomyelitis, left ankle and foot; N17.9 Acute kidney failure, unspecified; L02.416 Cutaneous abscess of left lower limb; E11.69 Type 2 diabetes mellitus with other specified complication; J45.909 Unspecified asthma, uncomplicated; E78.5 Hyperlipidemia, unspecified; Z89.422 Acquired absence of other left toe(s); Z88.8 Allergy status to other drugs, medicaments and biological substances; Z91.013 Allergy to seafood; Z91.018 Allergy to other foods; Z91.040 Latex allergy status; Z79.4 Long term (current) use of insulin; Z79.899 Other long term (current) drug therapy; E11.65 Type 2 diabetes mellitus with hyperglycemia
CPT/HCPCS: 36415; 73630; 73701; 80048; 80053; 80202; 82947; 83036; 83605; 85025; 85651; 86140; 87040; 87071; 87075; 87077; 87147; 87186; 87205; 88305; 93005; 93010; 93308; 93321; 94760; 96365; 96366; 96375; 97110; 97116; 97162; 99284-25; A9270; C1751; J0690; J0696; J1815; J2001; J2250; J2704; J3010; J3370; J7030; J7050; J7120; Q9967

== ENCOUNTER 2023-01-22 01:09 | Day surgery (SDC) | payer OTHER ==
[~2023-01-22 01:09] MED LIST changes: +ADMELOG SO100 UNIT/2 SC; +ATOR10 PO; +CEFTRIAXONE2 G1 IV; +HUMALOG KW100 UNIT/1 SC; +HYDHCL25 PO; +LISINOPRIL-HCT1 EACH PO; +SEMGLEE (Y100 UNIT/2 SC; +VISBIOME 112.51 EACH PO
[2023-01-22 08:43] VITALS: BP 137/74
== END 2023-01-22 08:47 | disposition home or self-care (01) ==
LOC: ATC 01:09
DX: A49.01 Methicillin susceptible Staphylococcus aureus infection, unspecified site (principal); R78.81 Bacteremia; E11.9 Type 2 diabetes mellitus without complications; J45.909 Unspecified asthma, uncomplicated
CPT/HCPCS: 96374; J0696

== ENCOUNTER 2023-01-23 06:20 | Day surgery (SDC) | payer OTHER ==
[2023-01-23 08:17] VITALS: BP 121/64
== END 2023-01-23 08:10 | disposition home or self-care (01) ==
LOC: ATC 06:20
DX: A49.01 Methicillin susceptible Staphylococcus aureus infection, unspecified site (principal); R78.81 Bacteremia; E11.9 Type 2 diabetes mellitus without complications; J45.909 Unspecified asthma, uncomplicated
CPT/HCPCS: 96374; J0696

== ENCOUNTER 2023-01-24 00:17 | Day surgery (SDC) | payer OTHER ==
[2023-01-24 10:24] VITALS: BP 123/67
== END 2023-01-24 10:31 | disposition home or self-care (01) ==
LOC: ATC 00:17
DX: R78.81 Bacteremia (principal); B95.61 Methicillin susceptible Staphylococcus aureus infection as the cause of diseases classified elsewhere; J45.909 Unspecified asthma, uncomplicated; E78.5 Hyperlipidemia, unspecified; Z89.422 Acquired absence of other left toe(s); E11.65 Type 2 diabetes mellitus with hyperglycemia
CPT/HCPCS: 96374; J0696

== ENCOUNTER 2023-01-24 01:51 | Day surgery (SDC) | payer OTHER | END 2023-01-24 23:00 | disposition home or self-care (01) | LOC: WOUND 01:51 | DX: E11.621 Type 2 diabetes mellitus with foot ulcer (principal); L97.525 Non-pressure chronic ulcer of other part of left foot with muscle involvement without evidence of necrosis; E11.69 Type 2 diabetes mellitus with other specified complication; M86.179 Other acute osteomyelitis, unspecified ankle and foot; M86.172 Other acute osteomyelitis, left ankle and foot; M86.372 Chronic multifocal osteomyelitis, left ankle and foot; L89.894 Pressure ulcer of other site, stage 4; E11.622 Type 2 diabetes mellitus with other skin ulcer; I73.9 Peripheral vascular disease, unspecified; R77.0 Abnormality of albumin | CPT/HCPCS: G0463 ==

== ENCOUNTER 2023-01-26 03:05 | Day surgery (SDC) | payer OTHER ==
[2023-01-26 09:59] VITALS: BP 132/69
== END 2023-01-26 10:04 | disposition home or self-care (01) ==
LOC: ATC 03:05
DX: R78.81 Bacteremia (principal); B95.61 Methicillin susceptible Staphylococcus aureus infection as the cause of diseases classified elsewhere; E11.9 Type 2 diabetes mellitus without complications; J45.909 Unspecified asthma, uncomplicated; E78.5 Hyperlipidemia, unspecified; Z89.422 Acquired absence of other left toe(s)
CPT/HCPCS: 96374; J0696

== ENCOUNTER 2023-01-27 03:00 | Day surgery (SDC) | payer OTHER ==
[2023-01-27 08:36] VITALS: BP 132/75
== END 2023-01-27 08:58 | disposition home or self-care (01) ==
LOC: ATC 03:00
DX: R78.81 Bacteremia (principal); B95.61 Methicillin susceptible Staphylococcus aureus infection as the cause of diseases classified elsewhere; E11.69 Type 2 diabetes mellitus with other specified complication; M86.9 Osteomyelitis, unspecified; L03.116 Cellulitis of left lower limb; J45.909 Unspecified asthma, uncomplicated; E78.5 Hyperlipidemia, unspecified
CPT/HCPCS: 96365; J0696

== ENCOUNTER 2023-01-29 06:03 | Day surgery (SDC) | payer OTHER ==
[2023-01-29 14:40] VITALS: BP 159/74
== END 2023-01-29 15:04 | disposition home or self-care (01) ==
LOC: ATC 06:03
DX: R78.81 Bacteremia (principal); B95.61 Methicillin susceptible Staphylococcus aureus infection as the cause of diseases classified elsewhere; E11.9 Type 2 diabetes mellitus without complications; J45.909 Unspecified asthma, uncomplicated; E78.5 Hyperlipidemia, unspecified; Z89.422 Acquired absence of other left toe(s)
CPT/HCPCS: J0696

== ENCOUNTER 2023-01-30 02:43 | Day surgery (SDC) | payer OTHER ==
[2023-01-30 14:10] VITALS: BP 147/77
== END 2023-01-30 14:34 | disposition home or self-care (01) ==
LOC: ATC 02:43
DX: R78.81 Bacteremia (principal); B95.61 Methicillin susceptible Staphylococcus aureus infection as the cause of diseases classified elsewhere; E11.69 Type 2 diabetes mellitus with other specified complication; M86.9 Osteomyelitis, unspecified; E11.622 Type 2 diabetes mellitus with other skin ulcer; L97.529 Non-pressure chronic ulcer of other part of left foot with unspecified severity; E78.5 Hyperlipidemia, unspecified; J45.909 Unspecified asthma, uncomplicated
CPT/HCPCS: J0696

== ENCOUNTER 2023-01-31 01:56 | Day surgery (SDC) | payer OTHER ==
[2023-01-31 14:37] VITALS: BP 142/75
== END 2023-01-31 14:52 | disposition home or self-care (01) ==
LOC: ATC 01:56
DX: B95.61 Methicillin susceptible Staphylococcus aureus infection as the cause of diseases classified elsewhere (principal); R78.81 Bacteremia; J45.909 Unspecified asthma, uncomplicated; E11.9 Type 2 diabetes mellitus without complications
CPT/HCPCS: 96365; J0696

== ENCOUNTER 2023-02-14 01:01 | Day surgery (SDC) | payer OTHER ==
[2023-02-14 07:32] VITALS: BP 138/67
== END 2023-02-14 07:49 | disposition home or self-care (01) ==
LOC: ATC 01:01
DX: R78.81 Bacteremia (principal); B95.61 Methicillin susceptible Staphylococcus aureus infection as the cause of diseases classified elsewhere; E11.69 Type 2 diabetes mellitus with other specified complication; M86.9 Osteomyelitis, unspecified; E78.5 Hyperlipidemia, unspecified; J45.909 Unspecified asthma, uncomplicated
CPT/HCPCS: 96365; J0696

== ENCOUNTER 2023-02-16 08:00 | Day surgery (SDC) | payer OTHER ==
[2023-02-16 07:30] VITALS: BP 151/78
== END 2023-02-16 23:59 | disposition home or self-care (01) ==
LOC: ATC 08:00
DX: E11.69 Type 2 diabetes mellitus with other specified complication (principal); M86.9 Osteomyelitis, unspecified; R78.81 Bacteremia; B95.61 Methicillin susceptible Staphylococcus aureus infection as the cause of diseases classified elsewhere; J45.909 Unspecified asthma, uncomplicated; E78.5 Hyperlipidemia, unspecified; L97.429 Non-pressure chronic ulcer of left heel and midfoot with unspecified severity; E11.65 Type 2 diabetes mellitus with hyperglycemia; E11.621 Type 2 diabetes mellitus with foot ulcer; E87.1 Hypo-osmolality and hyponatremia; Z79.4 Long term (current) use of insulin; Z89.432 Acquired absence of left foot
CPT/HCPCS: 96365; J0696

== ENCOUNTER 2023-02-17 01:03 | Day surgery (SDC) | payer OTHER ==
[2023-02-17 07:39] VITALS: BP 134/69
== END 2023-02-17 07:55 | disposition home or self-care (01) ==
LOC: ATC 01:03
DX: E11.69 Type 2 diabetes mellitus with other specified complication (principal); M86.9 Osteomyelitis, unspecified; R78.81 Bacteremia; B95.61 Methicillin susceptible Staphylococcus aureus infection as the cause of diseases classified elsewhere; E11.621 Type 2 diabetes mellitus with foot ulcer; E11.65 Type 2 diabetes mellitus with hyperglycemia; L97.429 Non-pressure chronic ulcer of left heel and midfoot with unspecified severity; E78.5 Hyperlipidemia, unspecified; J45.909 Unspecified asthma, uncomplicated; Z79.4 Long term (current) use of insulin; Z89.432 Acquired absence of left foot
CPT/HCPCS: 96365; J0696

== ENCOUNTER 2023-02-17 01:33 | Day surgery (SDC) | payer OTHER | END 2023-02-17 22:56 | disposition home or self-care (01) | LOC: WOUND 01:33 | DX: E11.621 Type 2 diabetes mellitus with foot ulcer (principal); L97.522 Non-pressure chronic ulcer of other part of left foot with fat layer exposed; E11.69 Type 2 diabetes mellitus with other specified complication; M86.172 Other acute osteomyelitis, left ankle and foot; M86.372 Chronic multifocal osteomyelitis, left ankle and foot; L89.894 Pressure ulcer of other site, stage 4; E11.622 Type 2 diabetes mellitus with other skin ulcer; I73.9 Peripheral vascular disease, unspecified; R77.0 Abnormality of albumin; R78.81 Bacteremia; B95.61 Methicillin susceptible Staphylococcus aureus infection as the cause of diseases classified elsewhere; E11.65 Type 2 diabetes mellitus with hyperglycemia; L97.429 Non-pressure chronic ulcer of left heel and midfoot with unspecified severity; E78.5 Hyperlipidemia, unspecified; J45.909 Unspecified asthma, uncomplicated; Z79.4 Long term (current) use of insulin; Z89.432 Acquired absence of left foot | CPT/HCPCS: 96365; G0463; J0696 ==

== ENCOUNTER 2023-02-18 01:51 | Day surgery (SDC) | payer OTHER ==
[2023-02-18 07:42] VITALS: BP 172/93
--- NOTE | 2023-02-18 08:17 | NUR ---
PATIENTS POWERGLIDE IN [place] REMOVED AFTER INSERTION OF NEW POWERGLIDE IN [place]. SITE WNL. TIP INTACT. GAUZE AND COBAN APPLIED. SCANT BLEEDING. PATIENT EDUCATED ON REMOVING BANDAGE IN 10-15 MINUTES.
== END 2023-02-18 07:46 | disposition home or self-care (01) ==
LOC: ATC 01:51
DX: E11.69 Type 2 diabetes mellitus with other specified complication (principal); M86.9 Osteomyelitis, unspecified; L03.116 Cellulitis of left lower limb; R78.81 Bacteremia; B95.61 Methicillin susceptible Staphylococcus aureus infection as the cause of diseases classified elsewhere
CPT/HCPCS: 96365; C1751; J0696

== ENCOUNTER 2023-02-19 00:16 | Day surgery (SDC) | payer OTHER ==
[2023-02-19 07:55] VITALS: BP 153/79
== END 2023-02-19 08:34 | disposition home or self-care (01) ==
LOC: ATC 00:16
DX: R78.81 Bacteremia (principal); B95.61 Methicillin susceptible Staphylococcus aureus infection as the cause of diseases classified elsewhere
CPT/HCPCS: 96365; J0696

== ENCOUNTER 2023-02-20 03:35 | Day surgery (SDC) | payer OTHER ==
[2023-02-20 07:32] VITALS: BP 132/74
== END 2023-02-20 07:57 | disposition home or self-care (01) ==
LOC: ATC 03:35
DX: R78.81 Bacteremia (principal); B95.61 Methicillin susceptible Staphylococcus aureus infection as the cause of diseases classified elsewhere
CPT/HCPCS: 96365; J0696

== ENCOUNTER 2023-02-21 01:02 | Day surgery (SDC) | payer OTHER ==
[2023-02-21 13:31] VITALS: BP 144/80
== END 2023-02-21 13:48 | disposition home or self-care (01) ==
LOC: ATC 01:02
DX: R78.81 Bacteremia (principal); E11.9 Type 2 diabetes mellitus without complications; E78.5 Hyperlipidemia, unspecified; J45.909 Unspecified asthma, uncomplicated; Z89.422 Acquired absence of other left toe(s); Z79.4 Long term (current) use of insulin; B95.61 Methicillin susceptible Staphylococcus aureus infection as the cause of diseases classified elsewhere
CPT/HCPCS: 96365; J0696

== ENCOUNTER 2023-02-22 03:01 | Day surgery (SDC) | payer OTHER ==
[2023-02-22 08:05] VITALS: BP 124/70
== END 2023-02-22 08:22 | disposition home or self-care (01) ==
LOC: ATC 03:01
DX: R78.81 Bacteremia (principal); B95.61 Methicillin susceptible Staphylococcus aureus infection as the cause of diseases classified elsewhere; E11.9 Type 2 diabetes mellitus without complications; J45.909 Unspecified asthma, uncomplicated; E78.5 Hyperlipidemia, unspecified; Z89.422 Acquired absence of other left toe(s)
CPT/HCPCS: 96365; J0696

== ENCOUNTER 2023-02-23 01:51 | Day surgery (SDC) | payer OTHER ==
[2023-02-23 07:53] VITALS: BP 147/82
== END 2023-02-23 08:14 | disposition home or self-care (01) ==
LOC: ATC 01:51
DX: R78.81 Bacteremia (principal); B95.61 Methicillin susceptible Staphylococcus aureus infection as the cause of diseases classified elsewhere
CPT/HCPCS: 96365; J0696

== ENCOUNTER 2023-02-24 01:01 | Day surgery (SDC) | payer OTHER ==
[2023-02-24 08:18] VITALS: BP 145/83
== END 2023-02-24 08:42 | disposition home or self-care (01) ==
LOC: ATC 01:01
DX: R78.81 Bacteremia (principal); B95.61 Methicillin susceptible Staphylococcus aureus infection as the cause of diseases classified elsewhere; E11.69 Type 2 diabetes mellitus with other specified complication; M86.9 Osteomyelitis, unspecified; E78.5 Hyperlipidemia, unspecified; J45.909 Unspecified asthma, uncomplicated
CPT/HCPCS: 96365; J0696

== ENCOUNTER 2023-02-25 03:48 | Day surgery (SDC) | payer OTHER ==
--- NOTE | 2023-02-25 09:35 | NUR ---
PT CALLED EARLY THIS MORNING AND REPORTS HE WILL NOT BE IN TODAY DUE TO ILLNESS.
== END 2023-02-25 22:34 | disposition home or self-care (01) ==
LOC: ATC 03:48
DX: E11.69 Type 2 diabetes mellitus with other specified complication (principal); M86.9 Osteomyelitis, unspecified; R78.81 Bacteremia; B95.61 Methicillin susceptible Staphylococcus aureus infection as the cause of diseases classified elsewhere; E11.65 Type 2 diabetes mellitus with hyperglycemia; E11.621 Type 2 diabetes mellitus with foot ulcer; E78.5 Hyperlipidemia, unspecified; J45.909 Unspecified asthma, uncomplicated; Z79.4 Long term (current) use of insulin; Z89.422 Acquired absence of other left toe(s)
CPT/HCPCS: J0696

== ENCOUNTER 2023-02-26 00:06 | Day surgery (SDC) | payer OTHER ==
[2023-02-26 07:50] VITALS: BP 144/72
== END 2023-02-26 08:15 | disposition home or self-care (01) ==
LOC: ATC 00:06
DX: E11.69 Type 2 diabetes mellitus with other specified complication (principal); M86.9 Osteomyelitis, unspecified; B95.61 Methicillin susceptible Staphylococcus aureus infection as the cause of diseases classified elsewhere; L03.116 Cellulitis of left lower limb
CPT/HCPCS: 96365; J0696

== ENCOUNTER 2023-02-27 02:20 | Day surgery (SDC) | payer OTHER ==
[2023-02-27 07:41] VITALS: BP 100/89
== END 2023-02-27 08:00 | disposition home or self-care (01) ==
LOC: ATC 02:20
DX: R78.81 Bacteremia (principal); E11.9 Type 2 diabetes mellitus without complications; J45.909 Unspecified asthma, uncomplicated; E78.5 Hyperlipidemia, unspecified; Z89.422 Acquired absence of other left toe(s); B95.61 Methicillin susceptible Staphylococcus aureus infection as the cause of diseases classified elsewhere
CPT/HCPCS: 96365; J0696

== ENCOUNTER 2023-02-28 00:09 | Day surgery (SDC) | payer OTHER ==
[2023-02-28 09:12] VITALS: BP 135/71
== END 2023-02-28 09:34 | disposition home or self-care (01) ==
LOC: ATC 00:09
DX: E11.69 Type 2 diabetes mellitus with other specified complication (principal); M86.9 Osteomyelitis, unspecified; B95.61 Methicillin susceptible Staphylococcus aureus infection as the cause of diseases classified elsewhere; L03.116 Cellulitis of left lower limb
CPT/HCPCS: J0696

== ENCOUNTER 2023-03-01 01:10 | Day surgery (SDC) | payer OTHER ==
[2023-03-01 09:09] VITALS: BP 140/79
== END 2023-03-01 09:35 | disposition home or self-care (01) ==
LOC: ATC 01:10
DX: R78.81 Bacteremia (principal); J45.909 Unspecified asthma, uncomplicated; E78.5 Hyperlipidemia, unspecified; Z89.422 Acquired absence of other left toe(s); B95.61 Methicillin susceptible Staphylococcus aureus infection as the cause of diseases classified elsewhere; E11.9 Type 2 diabetes mellitus without complications
CPT/HCPCS: 96365; J0696

== ENCOUNTER 2023-03-03 03:09 | Day surgery (SDC) | payer OTHER | END 2023-03-03 22:40 | disposition home or self-care (01) | LOC: WOUND 03:09 | DX: E11.621 Type 2 diabetes mellitus with foot ulcer (principal); L97.522 Non-pressure chronic ulcer of other part of left foot with fat layer exposed; E11.622 Type 2 diabetes mellitus with other skin ulcer; L89.894 Pressure ulcer of other site, stage 4; E11.59 Type 2 diabetes mellitus with other circulatory complications; M86.372 Chronic multifocal osteomyelitis, left ankle and foot; E11.51 Type 2 diabetes mellitus with diabetic peripheral angiopathy without gangrene; R77.0 Abnormality of albumin; E11.40 Type 2 diabetes mellitus with diabetic neuropathy, unspecified ==

== ENCOUNTER 2023-03-18 14:08 | Emergency (ER) | payer OTHER ==
[~2023-03-18] VITALS: Ht 185.4 cm; Wt 113.4 kg
[2023-03-18 15:18] LABS: Albumin, Blood 2.7 g/dL (3.4-5.0); Albumin/Globulin Ratio 0.5 (0.8-1.8); Bilirubin, Total 1.2 mg/dL (0.1-1.0); Bun/Creatinine Ratio 10.9 (12.0-20.0); Calcium, Blood 8.9 mg/dL (8.5-10.1); Creatinine, Blood 1.01 mg/dL (0.60-1.20); Globulin, Blood 5.6 g/dL (2.2-4.0); Hemoglobin 13.8 g/dL (13.5-17.5); Mean Corpuscular HGB 29.9 pg (26.0-34.0); Mean Corpuscular HGB Conc 35.4 g/dL (31.5-36.5); Mean Corpuscular Volume 84 fL (80-100); Potassium, Blood 4.4 mmol/L (3.5-5.5); RDW Coefficient Variation 12.3 % (11.7-14.2); RDW Standard Deviation 37.3 fL (35.1-46.3); Red Blood Cell Count 4.62 M/mm3 (4.30-5.90); Total Protein, Blood 8.3 g/dL (6.4-8.2); White Blood Cell Count 10.72 K/mm3 (4.00-11.30)
[2023-03-18 15:39] LABS: Mean Platelet Volume 11.5 fL (9.1-12.4); Platelet Count 194 K/mm3 (150-400)
[2023-03-18 15:57] LABS: BAND PERCENT MAN 9 % (0-8); BASOPHILS PERCENT MAN 0 % (0-2); EOSINOPHILS PERCENT MAN 0 % (0-6); LYMPHOCYTES ABSOLUTE MAN 0.75 K/mm3 (0.84-5.20); LYMPHOCYTES PERCENT MAN 7 % (21-46); MONOCYTES ABSOLUTE MAN 0.53 K/mm3 (0.16-1.47); MONOCYTES PERCENT MAN 5 % (4-13); NEUTROPHILS ABSOLUTE MAN 9.43 K/mm3 (1.96-9.15); SEG NEUTROPHILS PERCENT MAN 79 % (41-73); TOTAL CELLS COUNTED 100
[2023-03-18] MEDS ORDERED: ONDA4ODT MM (16:35)
[2023-03-18 16:40] VITALS: BP 131/65
== END 2023-03-18 16:42 | disposition home or self-care (01) ==
LOC: ER 14:08
PROVIDERS: Physician Assistant
DX: L03.116 Cellulitis of left lower limb (principal); Z89.422 Acquired absence of other left toe(s); E11.9 Type 2 diabetes mellitus without complications; J45.909 Unspecified asthma, uncomplicated; E78.5 Hyperlipidemia, unspecified; Z91.018 Allergy to other foods; Z91.013 Allergy to seafood; Z91.040 Latex allergy status; Z79.84 Long term (current) use of oral hypoglycemic drugs; Z79.4 Long term (current) use of insulin; Z79.899 Other long term (current) drug therapy
CPT/HCPCS: 73620; 80053; 85025; 96372; 99283-25; A9270; J1885

== ENCOUNTER 2023-03-21 02:03 | Day surgery (SDC) | payer OTHER ==
[~2023-03-21 02:03] MED LIST changes: +ONDA4ODT MM
== END 2023-03-21 22:39 | disposition home or self-care (01) ==
LOC: WOUND 02:03
DX: T87.89 Other complications of amputation stump (principal); E11.621 Type 2 diabetes mellitus with foot ulcer; L89.894 Pressure ulcer of other site, stage 4; E11.622 Type 2 diabetes mellitus with other skin ulcer; M86.372 Chronic multifocal osteomyelitis, left ankle and foot; E11.69 Type 2 diabetes mellitus with other specified complication; E11.51 Type 2 diabetes mellitus with diabetic peripheral angiopathy without gangrene; R77.0 Abnormality of albumin; E11.40 Type 2 diabetes mellitus with diabetic neuropathy, unspecified; E11.65 Type 2 diabetes mellitus with hyperglycemia
CPT/HCPCS: G0463

== ENCOUNTER 2023-03-24 15:57 | Inpatient (IN) | payer OTHER ==
[~2023-03-24] VITALS: Ht 185.4 cm; Wt 119.6 kg
[2023-03-24 16:23] LABS: BASOPHILS ABSOLUTE AUTO 0.03 K/mm3 (0.00-0.23); BASOPHILS PERCENT AUTO 0 % (0-2); EOSINOPHILS ABSOLUTE AUTO 0.12 K/mm3 (0.00-0.68); EOSINOPHILS PERCENT AUTO 2 % (0-6); Hematocrit 38.8 % (37.0-53.0); Hemoglobin 13.3 g/dL (13.5-17.5); IMMATURE GRAN ABSOLUTE AUTO 0.02 K/mm3 (0.00-0.10); IMMATURE GRAN PERCENT AUTO 0 % (0-1); LYMPHOCYTES ABSOLUTE AUTO 2.26 K/mm3 (0.84-5.20); LYMPHOCYTES PERCENT AUTO 28 % (21-46); MONOCYTES ABSOLUTE AUTO 0.49 K/mm3 (0.16-1.47); MONOCYTES PERCENT AUTO 6 % (4-13); Mean Corpuscular HGB 29.6 pg (26.0-34.0); Mean Corpuscular HGB Conc 34.3 g/dL (31.5-36.5); Mean Corpuscular Volume 86 fL (80-100); Mean Platelet Volume 10.7 fL (9.1-12.4); NEUTROPHILS ABSOLUTE AUTO 5.17 K/mm3 (1.96-9.15); NEUTROPHILS PERCENT AUTO 64 % (41-73); Platelet Count 301 K/mm3 (150-400); RDW Coefficient Variation 12.2 % (11.7-14.2); RDW Standard Deviation 38.5 fL (35.1-46.3); Red Blood Cell Count 4.49 M/mm3 (4.30-5.90); White Blood Cell Count 8.09 K/mm3 (4.00-11.30)
[2023-03-24 16:49] LABS: Albumin, Blood 2.6 g/dL (3.4-5.0); Albumin/Globulin Ratio 0.4 (0.8-1.8); Bilirubin, Total 0.4 mg/dL (0.1-1.0); Bun/Creatinine Ratio 16.5 (12.0-20.0); Calcium, Blood 8.9 mg/dL (8.5-10.1); Creatinine, Blood 0.73 mg/dL (0.60-1.20); Globulin, Blood 6.1 g/dL (2.2-4.0); Potassium, Blood 4.1 mmol/L (3.5-5.5); Total Protein, Blood 8.7 g/dL (6.4-8.2)
--- NOTE | 2023-03-24 20:42 | NUR ---
PT CHART REVIEWED FOR ADMIT
[2023-03-24] MEDS ORDERED: INSULANI (20:54)
[2023-03-24 21:05] VITALS: BP 154/86
[2023-03-25] VITALS (15 sets, daily range): BP systolic 134–172; BP diastolic 65–92
--- NOTE | 2023-03-25 06:16 | NUR ---
REPORT FROM ED RN MORENO, PT BROUGHT UP VIA [facility]- PT ABLE TO TRANSFER FROM [facility] TO BED WITHOUT PROBLEMS- WOUND CARE DONE - CHANGED AND REAPPLIED SAME DRESSING THAT ED HAD IN PLACE, CLENSED WITH WOUND CLENSER, APPLIED PETROLEUM DRESSING, APPLIED ABD D/T MODERATE AMOUNT OF DRAINAGE- WRAPPED WITH KERLIX AND LAURITA BANDAGE, PT DENIES PAIN AND TOLERATED WELL, IV INFUSING WITHOUT PROBLEMS, BED LOW POSITION, CALL LIGHT WITHIN REACH
--- NOTE | 2023-03-25 09:00 | NUR ---
pt laying in bed mom at bedside, a/ox4, pleasant and cooperative with care, follows commands well, denies any pain, lungs are clear t/o, resp even and unlaobored, no cough noted, hrr, no edema, vs stable, afebrile, iv site is clear and patent, btx4, abd flat soft nontender, voids without diff, skin has wound to right foot, pix in chart, foot is wrapped in dressing with tr wrap, no drainage noted, pt npo at this time for pending surgery, madelyn, is able to ambulate with using heel touch, piv to rac, infusing ns as ordered, kathy, call light in reach.
--- NOTE | 2023-03-25 09:46 | NUR ---
"Spiritual Care | Pt. Request Pt. is awake in bed and welcomes my visit. Pts. mother is present. Pt. is pleasant but mildly unsettled about a new infecttion in his leg. Pt. verbalized that he had a positive experience with a previous roller stainer and was hoping she might visit. Facilitated a life review and established some base-line rapport with spouse and mother. Pt. displays evidence of mild anxiety in anticipation of surgery today. Prayed with Pt. Pt. displayed evidence of lessened anxiety. pt. and Pts. mother welcomed this roller stainer to return."
--- NOTE | 2023-03-25 14:16 | NUR ---
pt left for surgey via angi.
--- NOTE | 2023-03-25 16:03 | NUR ---
03/25/23 1603 Esme Bauman NO PREOP ANTIBIOTICS ORDERED PER PATIENT IS ON SCHEDULED VANCO AND ROCHEPHIN.
--- NOTE | 2023-03-25 17:00 | NUR ---
pt returned to room post surgery, vs stable, pt awake, denies pain, states his foot actually feels better, tolerating water without diff, call light in reach.
--- NOTE | 2023-03-25 18:18 | NUR ---
visitors in room, pt tolerated 100% of dinner, no complaints or needs at this time. call light in reach.
[2023-03-26 00:24] VITALS: BP 142/78
[2023-03-26 04:20] LABS: BASOPHILS PERCENT AUTO 0 % (0-2); EOSINOPHILS ABSOLUTE AUTO 0.01 K/mm3 (0.00-0.68); EOSINOPHILS PERCENT AUTO 0 % (0-6); Hematocrit 36.5 % (37.0-53.0); Hemoglobin 12.5 g/dL (13.5-17.5); IMMATURE GRAN ABSOLUTE AUTO 0.01 K/mm3 (0.00-0.10); IMMATURE GRAN PERCENT AUTO 0 % (0-1); LYMPHOCYTES ABSOLUTE AUTO 0.81 K/mm3 (0.84-5.20); LYMPHOCYTES PERCENT AUTO 14 % (21-46); MONOCYTES ABSOLUTE AUTO 0.14 K/mm3 (0.16-1.47); MONOCYTES PERCENT AUTO 2 % (4-13); Mean Corpuscular HGB 29.8 pg (26.0-34.0); Mean Corpuscular HGB Conc 34.2 g/dL (31.5-36.5); Mean Corpuscular Volume 87 fL (80-100); Mean Platelet Volume 10.4 fL (9.1-12.4); NEUTROPHILS PERCENT AUTO 83 % (41-73); Platelet Count 274 K/mm3 (150-400); RDW Coefficient Variation 12.1 % (11.7-14.2); RDW Standard Deviation 38.5 fL (35.1-46.3); White Blood Cell Count 5.87 K/mm3 (4.00-11.30)
[2023-03-26 04:32] VITALS: BP 156/82
[2023-03-26 04:41] LABS: Vancomycin, Trough 16.5 ug/mL (5.0-10.0)
[2023-03-26 04:52] LABS: Albumin, Blood 2.2 g/dL (3.4-5.0); Albumin/Globulin Ratio 0.4 (0.8-1.8); Bilirubin, Total 0.4 mg/dL (0.1-1.0); Bun/Creatinine Ratio 17.6 (12.0-20.0); Calcium, Blood 8.7 mg/dL (8.5-10.1); Creatinine, Blood 0.74 mg/dL (0.60-1.20); Globulin, Blood 5.2 g/dL (2.2-4.0); Potassium, Blood 4.9 mmol/L (3.5-5.5); Total Protein, Blood 7.4 g/dL (6.4-8.2)
--- NOTE | 2023-03-26 06:32 | NUR ---
PT LAYING IN BED DURING BEDSIDE REPORT, PT DENIES PAIN, IV INFUSING -BANDAGE TO LEFT OPERATIVE FOOT CLEAN DRY AND INTACT-PT TOOK HS MEDS WITHOUT PROBLEMS, PT SLEPT T/O NIGHT WITHOUT PROBLEMS, CALL LIGHT WITHIN REACH, BED LOW POSITION
[2023-03-26 07:29] VITALS: BP 149/80
--- NOTE | 2023-03-26 16:04 | NUR ---
SHIFT SUMMARY PATIENT IS ALERT AND ORIENTED. PATIENT HAS HAD NO ACUTE EVENTS THIS SHIFT. VITAL SIGNS REVIEWED. PATIENT TOOK A SHOWER TODAY. PATIENT HAS NOT COMPLAINED OF PAIN, NAUSEA, SOB OR VOMITTING THIS SHIFT. PATIENT HAS BEEN IND THIS SHIFT. PATIENTS DRESSING IS CDI. BED IN LOCKED AND LOWEST POSITION. CALL LIGHT IN PLACE. WILL MONITOR UNTIL SHIFT CHANGE.
[2023-03-26 16:09] VITALS: BP 149/71
[2023-03-26 19:43] VITALS: BP 156/69
[2023-03-27 02:53] VITALS: BP 147/75
[2023-03-27 04:15] LABS: BASOPHILS ABSOLUTE AUTO 0.01 K/mm3 (0.00-0.23); BASOPHILS PERCENT AUTO 0 % (0-2); EOSINOPHILS ABSOLUTE AUTO 0.02 K/mm3 (0.00-0.68); EOSINOPHILS PERCENT AUTO 0 % (0-6); Hemoglobin 12.5 g/dL (13.5-17.5); IMMATURE GRAN ABSOLUTE AUTO 0.02 K/mm3 (0.00-0.10); IMMATURE GRAN PERCENT AUTO 0 % (0-1); LYMPHOCYTES ABSOLUTE AUTO 1.74 K/mm3 (0.84-5.20); LYMPHOCYTES PERCENT AUTO 25 % (21-46); MONOCYTES ABSOLUTE AUTO 0.54 K/mm3 (0.16-1.47); MONOCYTES PERCENT AUTO 8 % (4-13); Mean Corpuscular HGB 30.1 pg (26.0-34.0); Mean Corpuscular HGB Conc 34.7 g/dL (31.5-36.5); Mean Corpuscular Volume 87 fL (80-100); Mean Platelet Volume 10.4 fL (9.1-12.4); NEUTROPHILS ABSOLUTE AUTO 4.65 K/mm3 (1.96-9.15); NEUTROPHILS PERCENT AUTO 67 % (41-73); Platelet Count 284 K/mm3 (150-400); RDW Coefficient Variation 12.3 % (11.7-14.2); RDW Standard Deviation 38.9 fL (35.1-46.3); Red Blood Cell Count 4.15 M/mm3 (4.30-5.90); White Blood Cell Count 6.98 K/mm3 (4.00-11.30)
[2023-03-27 04:32] LABS: Vancomycin, Trough 19.9 ug/mL (5.0-10.0)
[2023-03-27 04:41] LABS: Albumin, Blood 2.2 g/dL (3.4-5.0); Albumin/Globulin Ratio 0.4 (0.8-1.8); Bilirubin, Total 0.3 mg/dL (0.1-1.0); Bun/Creatinine Ratio 21.9 (12.0-20.0); Calcium, Blood 8.6 mg/dL (8.5-10.1); Creatinine, Blood 0.87 mg/dL (0.60-1.20); Globulin, Blood 5.2 g/dL (2.2-4.0); Potassium, Blood 3.8 mmol/L (3.5-5.5); Total Protein, Blood 7.4 g/dL (6.4-8.2)
--- NOTE | 2023-03-27 07:30 | NUR ---
END OF SHIFT SUMMARY PT PLEASANT AND COOPERATIVE WITH CARE PROVIDED. PT RECEIVING IV ANTIBIOTICS, VANCOMYCIN. PT DENIED PAIN/DISCOMFORT DURING NURSING ASSESSMENT. CBG AT HS WAS 332. PT AMBULATES INDEPENDENTLY, PT COMPLIANT WITH WEIGHT BEARING PRECAUTIONS. VSS, PT A&O x4. PT ABLE TO MAKE NEEDS KNOWN. CALL LIGHT WITHIN REACH, WCTM.
[2023-03-27 07:35] VITALS: BP 159/91
[2023-03-27 15:10] VITALS: BP 147/78
--- NOTE | 2023-03-27 16:26 | NUR ---
SHIFT SUMMARY PATIENT IS ALERT AND ORIENTED. PATIENT HAS HAD NO ACUTE EVENTS THIS SHIFT. VITAL SIGNS REVIEWED. PATIENT HAS NOT COMPLAINED OF PAIN, NAUSEA, SOB OR VOMITTING THIS SHIFT. DR MCGREGOR SAW PATIENTS FOOT AND RECOMMENDED A WOUND VAC. PATIENT WOUND CULTURES PENDING. BED IN LOCKED AND LOWEST POSITION. CALL LIGHT IN PLACE. WILL MONITOR UNTIL SHIFT CHANGE.
--- NOTE | 2023-03-27 19:48 | NUR ---
191 PT SITTING UP IN BED, DENIES PAIN AT THIS TIME, REPORTS N/T FEET BUT STATES THIS IS NOT NEW AND R/T HIS DIABETES. DRESSING ON L FOOT 10% DRAINAGE BUT OTHERWISE CLEAN AND INTACT. NO OTHER APPARENT SIGNS OF DISTRESS AT THIS TIME. PT DENIES NEED FOR ANYTHING ELSE AT THIS TIME. CALL LIGHT IS IN REACH.
--- NOTE | 2023-03-27 20:01 | NUR ---
REGARDING PT'S ORDERS FOR NS AT 75/HOUR, THE RN THAT GAVE REPORT STATED THE DR GAVE ORDERS TO SALINE LOCK. THE ORDER IS NOT IN THE COMPUTER TO SALINE LOCK AND DC THE IVF AT THIS TIME. HOWEVER, THE PATIENT ALSO REPORTS THE IVF ARE TO BE STOPPED PER THE DR AND DOES NOT WISH TO BE HOOKED BACK UP TO THE NS. PT IS EATING AND DRINKING WELL. WILL HOLD THE IVF NOW PER PT'S WISHES AND HAVE DAY RN FOLLOW UP WITH DAY HOSPITALIST FOR THE OFFICIAL ORDER.
[2023-03-27 21:12] VITALS: BP 151/77
--- NOTE | 2023-03-28 01:05 | NUR ---
03/28/23 8654 PT LYING IN BED, DENIES NEED FOR ANYTHING AT THIS TIME. NO APPARENT SIGNS OF DISTRESS. CALL LIGHT IS IN REACH.
--- NOTE | 2023-03-28 01:05 | NUR ---
PT LYING IN BED, EYES CLOSED, APPEARS TO BE RESTING. BREATHING IS EVEN, UNLABORED. ON APPARENT SIGNS OF DISTRESS. CALL LIGHT IS IN REACH.
[2023-03-28 04:31] LABS: Vancomycin, Trough 19.9 ug/mL (5.0-10.0)
--- NOTE | 2023-03-28 04:46 | NUR ---
0230 PT LYING IN BED, EYES CLOSED, APPEARS TO BE RESTING. BREATHING IS EVEN, UNLABORED. NO APPARENT SIGNS OF DISTRESS. CALL LIGHT IS IN REACH.
--- NOTE | 2023-03-28 04:47 | NUR ---
PT IS AAO X 4, DENIES ANY DISCOMFORT FOR THIS SHIFT. DRESSING ON L FOOT HAS 10% DRAINAGE. LAST BS WAS 239
--- NOTE | 2023-03-28 04:47 | NUR ---
0400 PT LYING IN BED, WAKES EASILY TO VERBAL STIMULI. NO APPARENT SIGNS OF DISTRESS. CALL LIGHT IS IN REACH.
[2023-03-28 04:53] VITALS: BP 135/77
[2023-03-28 04:57] LABS: Creatinine, Blood 1.07 mg/dL (0.60-1.20)
--- NOTE | 2023-03-28 05:28 | NUR ---
PT LYING IN BED, WAKES EASILY TO VERBAL STIMUL. DENIES NEED FOR ANYTHING AT THIS TIME. NO APPARENT SIGNS OF DISTRESS. CALL LIGHT IS IN REACH. NO OTHER CHANGES THIS SHIFT.
[2023-03-28 07:20] VITALS: BP 135/70
[2023-03-28] MEDS ORDERED: LEVO750 PO (16:19)
[2023-03-28] MEDS ORDERED: VISBIOME 112.51 EACH PO (16:22)
[2023-03-28] MEDS ORDERED: LISI20 PO (16:23)
--- NOTE | 2023-03-28 16:54 | NUR ---
SHIFT SUMMARY PATIENT IS ALERT AND ORIENTED. PATIENT HAS HAD NO ACUTE EVENTS THIS SHIFT. VITAL SIGNS REVIEWED. PATIENT HAD WOUND VAC PLACED BY MOHSEN WOUND CARE NURSE. PATIENT IS BEING DISCHARGED HOME WITH MOTHER TRANSPORTING PATIENT.
== END 2023-03-28 16:52 | disposition home or self-care (01) | DRG 629 ==
LOC: ER 15:57 → MEDS 20:38
PROVIDERS: Hospitalist; Physician Assistant; Podiatrist; ADMIT Nurse Practitioner Acute Care
PROC: 0QBP0ZZ Excision of Left Metatarsal, Open Approach (ICD-10-PCS; principal; 2023-03-25 15:00)
DX: E11.69 Type 2 diabetes mellitus with other specified complication (principal); L97.424 Non-pressure chronic ulcer of left heel and midfoot with necrosis of bone; M86.172 Other acute osteomyelitis, left ankle and foot; E11.621 Type 2 diabetes mellitus with foot ulcer; J45.909 Unspecified asthma, uncomplicated; I10 Essential (primary) hypertension; E11.42 Type 2 diabetes mellitus with diabetic polyneuropathy; E78.5 Hyperlipidemia, unspecified; Z91.018 Allergy to other foods; Z91.040 Latex allergy status; Z91.013 Allergy to seafood; Z79.2 Long term (current) use of antibiotics; Z79.899 Other long term (current) drug therapy; Z79.4 Long term (current) use of insulin; Z89.422 Acquired absence of other left toe(s)
CPT/HCPCS: 36415; 73630; 80053; 80202; 82565; 82947; 85025; 86140; 87040; 87071; 87075; 87076; 87077; 87186; 87205; 88309; 94760; 96365; 96366; 96368; 99284-25; A9270; J0696; J1100; J1650; J1815; J2001; J2250; J2405; J2704; J2765; J3010; J3370; J7030; J7050; J7120

== ENCOUNTER 2023-03-30 05:00 | Day surgery (SDC) | payer OTHER ==
[~2023-03-30 05:00] MED LIST changes: +INSULANI; +LEVO750 PO; +LISI20 PO
== END 2023-03-30 22:43 | disposition home or self-care (01) ==
LOC: WOUND 05:00
DX: T87.44 Infection of amputation stump, left lower extremity (principal); E11.621 Type 2 diabetes mellitus with foot ulcer; T87.89 Other complications of amputation stump; L97.522 Non-pressure chronic ulcer of other part of left foot with fat layer exposed; L89.894 Pressure ulcer of other site, stage 4; M86.372 Chronic multifocal osteomyelitis, left ankle and foot; E11.51 Type 2 diabetes mellitus with diabetic peripheral angiopathy without gangrene; E11.40 Type 2 diabetes mellitus with diabetic neuropathy, unspecified; E11.65 Type 2 diabetes mellitus with hyperglycemia

== ENCOUNTER 2023-04-01 02:11 | Day surgery (SDC) | payer OTHER | END 2023-04-01 22:58 | disposition home or self-care (01) | LOC: WOUND 02:11 | DX: E11.621 Type 2 diabetes mellitus with foot ulcer (principal); L89.894 Pressure ulcer of other site, stage 4; E11.622 Type 2 diabetes mellitus with other skin ulcer; M86.372 Chronic multifocal osteomyelitis, left ankle and foot; E11.69 Type 2 diabetes mellitus with other specified complication; E11.51 Type 2 diabetes mellitus with diabetic peripheral angiopathy without gangrene; R77.0 Abnormality of albumin; E11.40 Type 2 diabetes mellitus with diabetic neuropathy, unspecified; E11.65 Type 2 diabetes mellitus with hyperglycemia ==

== ENCOUNTER 2023-04-04 00:47 | Day surgery (SDC) | payer OTHER | END 2023-04-04 22:45 | disposition home or self-care (01) | LOC: WOUND 00:47 | DX: T87.89 Other complications of amputation stump (principal); E11.621 Type 2 diabetes mellitus with foot ulcer; L97.522 Non-pressure chronic ulcer of other part of left foot with fat layer exposed; E11.51 Type 2 diabetes mellitus with diabetic peripheral angiopathy without gangrene; M86.372 Chronic multifocal osteomyelitis, left ankle and foot; R77.0 Abnormality of albumin; E11.40 Type 2 diabetes mellitus with diabetic neuropathy, unspecified; E11.65 Type 2 diabetes mellitus with hyperglycemia; E11.69 Type 2 diabetes mellitus with other specified complication ==

== ENCOUNTER 2023-04-06 02:28 | Day surgery (SDC) | payer OTHER | END 2023-04-06 22:52 | disposition home or self-care (01) | LOC: WOUND 02:28 | DX: E11.621 Type 2 diabetes mellitus with foot ulcer (principal); L89.894 Pressure ulcer of other site, stage 4; E11.622 Type 2 diabetes mellitus with other skin ulcer; E11.69 Type 2 diabetes mellitus with other specified complication; M86.372 Chronic multifocal osteomyelitis, left ankle and foot; E11.51 Type 2 diabetes mellitus with diabetic peripheral angiopathy without gangrene; R77.0 Abnormality of albumin; E11.40 Type 2 diabetes mellitus with diabetic neuropathy, unspecified; E11.65 Type 2 diabetes mellitus with hyperglycemia ==

== ENCOUNTER 2023-04-11 01:31 | Day surgery (SDC) | payer OTHER | END 2023-04-11 22:53 | disposition home or self-care (01) | LOC: WOUND 01:31 | DX: E11.69 Type 2 diabetes mellitus with other specified complication (principal); M86.372 Chronic multifocal osteomyelitis, left ankle and foot; E11.621 Type 2 diabetes mellitus with foot ulcer; E11.40 Type 2 diabetes mellitus with diabetic neuropathy, unspecified; E11.51 Type 2 diabetes mellitus with diabetic peripheral angiopathy without gangrene; R77.0 Abnormality of albumin; L89.892 Pressure ulcer of other site, stage 2; J45.909 Unspecified asthma, uncomplicated; Z89.432 Acquired absence of left foot | CPT/HCPCS: G0463 ==

== ENCOUNTER 2023-04-19 08:41 | Day surgery (SDC) | payer OTHER | END 2023-04-19 22:51 | disposition home or self-care (01) | LOC: WOUND 08:41 | DX: L89.894 Pressure ulcer of other site, stage 4 (principal); E11.621 Type 2 diabetes mellitus with foot ulcer; E11.69 Type 2 diabetes mellitus with other specified complication; E11.622 Type 2 diabetes mellitus with other skin ulcer; M86.372 Chronic multifocal osteomyelitis, left ankle and foot; Z89.432 Acquired absence of left foot | CPT/HCPCS: G0463 ==

== ENCOUNTER 2023-04-25 01:11 | Day surgery (SDC) | payer OTHER | END 2023-04-25 22:47 | disposition home or self-care (01) | LOC: WOUND 01:11 | DX: E11.621 Type 2 diabetes mellitus with foot ulcer (principal); L97.522 Non-pressure chronic ulcer of other part of left foot with fat layer exposed; E11.622 Type 2 diabetes mellitus with other skin ulcer; L89.894 Pressure ulcer of other site, stage 4; E11.69 Type 2 diabetes mellitus with other specified complication; M86.372 Chronic multifocal osteomyelitis, left ankle and foot; E11.51 Type 2 diabetes mellitus with diabetic peripheral angiopathy without gangrene; E11.40 Type 2 diabetes mellitus with diabetic neuropathy, unspecified | CPT/HCPCS: A9270; G0463 ==

== ENCOUNTER 2023-05-02 01:57 | Day surgery (SDC) | payer OTHER | END 2023-05-02 22:57 | disposition home or self-care (01) | LOC: WOUND 01:57 | DX: T87.89 Other complications of amputation stump (principal); E11.621 Type 2 diabetes mellitus with foot ulcer; L89.894 Pressure ulcer of other site, stage 4; E11.622 Type 2 diabetes mellitus with other skin ulcer; E11.69 Type 2 diabetes mellitus with other specified complication; M86.372 Chronic multifocal osteomyelitis, left ankle and foot; E11.51 Type 2 diabetes mellitus with diabetic peripheral angiopathy without gangrene; R77.0 Abnormality of albumin; E11.40 Type 2 diabetes mellitus with diabetic neuropathy, unspecified; E11.65 Type 2 diabetes mellitus with hyperglycemia; M79.89 Other specified soft tissue disorders | CPT/HCPCS: 73630; G0463 ==

== ENCOUNTER 2023-05-14 10:35 | Inpatient (IN) | payer OTHER ==
[2023-05-14] VITALS (16 sets, daily range): BP systolic 100–152; BP diastolic 48–86
[~2023-05-14] VITALS: Ht 185.4 cm; Wt 104.5 kg
[2023-05-14 12:38] LABS: BASOPHILS ABSOLUTE AUTO 0.04 K/mm3 (0.00-0.23); BASOPHILS PERCENT AUTO 0 % (0-2); EOSINOPHILS PERCENT AUTO 0 % (0-6); Hematocrit 36.4 % (37.0-53.0); Hemoglobin 12.1 g/dL (13.5-17.5); IMMATURE GRAN ABSOLUTE AUTO 0.07 K/mm3 (0.00-0.10); IMMATURE GRAN PERCENT AUTO 1 % (0-1); LYMPHOCYTES ABSOLUTE AUTO 1.69 K/mm3 (0.84-5.20); LYMPHOCYTES PERCENT AUTO 12 % (21-46); MONOCYTES ABSOLUTE AUTO 0.79 K/mm3 (0.16-1.47); MONOCYTES PERCENT AUTO 6 % (4-13); Mean Corpuscular HGB 29.2 pg (26.0-34.0); Mean Corpuscular HGB Conc 33.2 g/dL (31.5-36.5); Mean Corpuscular Volume 88 fL (80-100); Mean Platelet Volume 11.6 fL (9.1-12.4); NEUTROPHILS ABSOLUTE AUTO 11.42 K/mm3 (1.96-9.15); NEUTROPHILS PERCENT AUTO 82 % (41-73); Platelet Count 330 K/mm3 (150-400); RDW Coefficient Variation 13.2 % (11.7-14.2); RDW Standard Deviation 42.5 fL (35.1-46.3); Red Blood Cell Count 4.15 M/mm3 (4.30-5.90); White Blood Cell Count 14.01 K/mm3 (4.00-11.30)
[2023-05-14 12:56] LABS: Albumin, Blood 1.9 g/dL (3.4-5.0); Albumin/Globulin Ratio 0.3 (0.8-1.8); Bilirubin, Total 0.9 mg/dL (0.1-1.0); Bun/Creatinine Ratio 34.4 (12.0-20.0); Calcium, Blood 8.8 mg/dL (8.5-10.1); Creatinine, Blood 1.22 mg/dL (0.60-1.20); Globulin, Blood 6.7 g/dL (2.2-4.0); Potassium, Blood 5.3 mmol/L (3.5-5.5); Total Protein, Blood 8.6 g/dL (6.4-8.2)
--- NOTE | 2023-05-14 15:30 | NUR ---
PATIENT TO PCU 19 AT 1430. ABLE TO SLIDE PATIENT USING SLIDE SHEET. ALERT AND ORIENTED X4. NUMBNESS/TINGLING TO BILATERAL LOWER EXTREMITIES. DENTURES AT HOME. PERRLA. ON ROOM AIR SATING ABOVE 95%. LUNG SOUNDING CLEAR. DENIES SOB/COUGH. TELE SHOWING SR/ST WITH HR 90-100'S. DENIES CHEST PAIN/PRESSURE. BP STABLE. PPP. EDEMA NOTED IN RLE. DENIES ABDOMINAL PAIN/NAUSEA. REPORTS LOSS OF APPEATITE AND RECENT WEIGHT LOSS. BOWEL TONES PRESENT. DENIES ISSUES WITH VOIDING, URINAL AT BEDSIDE. RIGHT ANKLE SWOLLEN, HOT AND RED. SKIN MARKER USED TO OUTLINE REDNESS IN ED. SEE CHART PHOTOS. PLAN FOR SURGERY TODAY. PATIENT REPORTS LEFT TOES/PARTIAL METATARSAL AMPUTATION SURGERY AROUND 6 YEARS AGO. LEFT PLANTAR MEDIAL SURFACE WITH OPEN WOUND, CLEANED AND DRESSING APPLIED, SEE CHART PHOTOS. PATIENT STATES HE STANDS AND PIVOTS AT BASELINE USING WHEELCHAIR. TEMP READING 100.4 PO TYLENOL GIVEN. NS FLUID BOLUS INFUSING WELL IV ABX. CALL LIGHT IN REACH. LORENA JACOBS AT BEDSIDE AND UPDATED ON PLAN OF CARE. CBG CHECKED AND TRENDING DOWN FROM IV INSULIN GIVEN IN ED. PATIENT DENIES NEEDS AT THIS TIME.
--- NOTE | 2023-05-14 17:31 | NUR ---
PRE-OP NOTE PT TO PACU PRE-OP. PT A&OX4, BREATHING RA, IN NO APPARENT DISTRESS. IV RUNNING LR AND VANCOMYCIN THROUGH IV PUMP. DR WOOD PERFORMED NERVE BLOCK PRIOR TO SURGERY, TIME OUT PERFORMED AT 1513, ASSISTED BY ZEHRA BRINK. REGULAR INSULIN GIVEN [address] WOOD ORDER FOR CBG 365. R ANKLE RED AND SWOLLEN PRIOR TO SURGERY. NO ACUTE CONCERNS.
--- NOTE | 2023-05-14 17:40 | NUR ---
PATIENT TO OR AT 1630ISH. VACOMYCIN INFUSING AND TAKEN WITH PATIENT TO OR.
--- NOTE | 2023-05-14 17:54 | NUR ---
05/14/23 1754 Esme Bauman PRIOR TO COMING TO THE OR PATIENT RECEIVED VANCO IV AT 1554.
--- NOTE | 2023-05-14 21:17 | NUR ---
ASSUMED PT CARE FORM NITESH SHAHID ON DAY SHIFT. PT A&OX4. CHEST PAIN/PRESSURE THIS EVENING. HR SR IN 90'S. BP STABLE. DENIES SOB. O2 SATS > 92% ON RA WHILE AWAKE, PLACED ON 4 LPM WHILE SLEEPING. DENIES PAIN IN RIGHT LEG POST SURGERY. LAURITA WRAP IN PLACE ON RIGHT LEG, NO DRAINAGE NOTED. TOES WAR, PINK, WITH CAP REFILL < 3 SECONDS. DENEIS SENSATION IN TOES BUT REPORTS DEMINISHED SENSATION AT BASELINE. UNABLE TO WIGGLE TOES AT THIS TIME, WILL MONITOR. LEFT FOOT WRAPPED IN LAURITA WRAP, C/D/I, NO DRAINAGE NOTED. FEET BILATERALLY ELEVATED ON PILLOWS. PT TEMP 100.7 BUT DECREASES TO 99.0 WITHOUT INTERVENTION, WILL MONITOR. SITTING AT BEDSIDE TO VOID IN URINAL. DENIES NEEDS AT THIS TIME. CALL LIGHT IN REACH. BED IN LOW POSITION.
[2023-05-15 03:40] LABS: Hematocrit 27.7 % (37.0-53.0); Hemoglobin 9.2 g/dL (13.5-17.5); Mean Corpuscular HGB 28.9 pg (26.0-34.0); Mean Corpuscular HGB Conc 33.2 g/dL (31.5-36.5); Mean Corpuscular Volume 87 fL (80-100); Mean Platelet Volume 10.7 fL (9.1-12.4); Platelet Count 242 K/mm3 (150-400); RDW Coefficient Variation 13.3 % (11.7-14.2); RDW Standard Deviation 42.4 fL (35.1-46.3); Red Blood Cell Count 3.18 M/mm3 (4.30-5.90); White Blood Cell Count 11.98 K/mm3 (4.00-11.30)
[2023-05-15 04:03] LABS: Albumin, Blood 1.5 g/dL (3.4-5.0); Albumin/Globulin Ratio 0.3 (0.8-1.8); Bilirubin, Total 0.6 mg/dL (0.1-1.0); Bun/Creatinine Ratio 34.4 (12.0-20.0); Calcium, Blood 8.4 mg/dL (8.5-10.1); Creatinine, Blood 1.25 mg/dL (0.60-1.20); Globulin, Blood 5.3 g/dL (2.2-4.0); Potassium, Blood 4.4 mmol/L (3.5-5.5); Total Protein, Blood 6.8 g/dL (6.4-8.2)
[2023-05-15 04:21] VITALS: BP 128/67
[2023-05-15 04:30] VITALS: BP 128/67
--- NOTE | 2023-05-15 06:47 | NUR ---
SHIFT SUMMARY: T. MAX 102.6, MEDICATED WITH TYLENOL TO GOOD EFFECT. TEMP NOW 98.4. PAIN HAS REMAINED WELL CONTROLED. UNABLE TO WIGGLE TOES AT THIS TIME. PINK WITH CAP REFILL < 3 SECONDS. DRESSING ON LEFT FOOT REINFORCED DUE TO LEAKING ON TOE AREA OF DRSG. RESTING IN BED. CALL LIGHT IN REACH. BED ALARM ON.
[2023-05-15 07:35] VITALS: BP 106/52
--- NOTE | 2023-05-15 09:16 | NUR ---
AM NOTE: PATIENT ALERT AND ORIENTED X4. VERY SLEEPY AND TIRED THIS AM. NUMBNESS AND TINGLING IN BLE. S/P SURGERY ON RIGHT ANKLE, DRESSING C/D/I. PEDAL PULSES PRESENT. CAPILLARY REFILL WNL. PATIENT ABLE TO WIGGLE TOES SLIGHTLY. DENIES PAIN. LEFT PLANTAR FOOT DRESSING REMAINS C/D/I. UPON SHIFT START PATIENT ON 4L NASAL CANNULA WHILE SLEEPING, THIS RN TITRATED TO 1L NASAL CANNULA. LUNGS SOUNDING CLEAR AND DIM. NO COUGH. DENIES SOB. TELE SHOWING SR WITH HR 70'S. BP STABLE. SC LOVENOX GIVEN THIS AM PER EMAR. DENIES CHEST PAIN/PRESSURE/PALPITATIONS. PPP. DENIES ABDOMINAL PAIN, DENIES BREAKFAST, BLOOD SUGAR 116 THIS AM. USING URINAL TO VOID. BOWEL TONES PRESENT. SKIN OVERALL C/D/I BESIDES BILATERAL FEET/RIGHT ANKLE. CALL LIGHT IN REACH. ABX INFUSING. DR. QUINTERO BY THIS AM. PLAN FOR MEDICAL WITH TELE. NEW BLOOD CULTURES ORDERED. PATIENT SLEEPING AT THIS TIME.
--- NOTE | 2023-05-15 11:35 | NUR ---
PT TRANSFERED FROM U. ALERT AND ORIENTED X4. C/O HEARTBURN. TREATED PER EMAR.
--- NOTE | 2023-05-15 12:44 | NUR ---
TRANSFER: REPORT GIVEN TO [place]. NO ACUTE CHANGES. VITAL SIGNS REMAIN STABLE.
--- NOTE | 2023-05-15 15:01 | NUR ---
PT REPORTS UPSET STOMACH AND HEARTBURN SOME RELIEF FROM PRN MEDICATIONS. STATED IT HAS BEEN GOING ON FOR A FEW WEEKS NOW. RECOMMENDED PT KEEP HOB AT 30 DEGREE.
--- NOTE | 2023-05-15 15:03 | NUR ---
ASSESSMENT OF PT RLE, SWOLLEN, CAP REFILL 4, PT IS ABLE TO WIGGLE TOES, DENIES PAIN
[2023-05-15 15:57] VITALS: BP 111/61
--- NOTE | 2023-05-15 18:18 | NUR ---
SHIFT SUMMARY PT IS ALERT AND ORIENTED X4. BEDREST. DENIES CHEST PAIN AND SOB. PLEASANT AND COOPERATIVE. DECLINED LUNCH AND DINNER. NO ACUTE CHANGES THIS SHIFT
[2023-05-15 20:08] VITALS: BP 107/62
[2023-05-16 02:51] VITALS: BP 125/66
[2023-05-16 05:04] LABS: Hematocrit 31.2 % (37.0-53.0); Hemoglobin 10.2 g/dL (13.5-17.5); Mean Corpuscular HGB 28.8 pg (26.0-34.0); Mean Corpuscular HGB Conc 32.7 g/dL (31.5-36.5); Mean Corpuscular Volume 88 fL (80-100); Mean Platelet Volume 10.9 fL (9.1-12.4); Platelet Count 300 K/mm3 (150-400); RDW Coefficient Variation 13.3 % (11.7-14.2); RDW Standard Deviation 43.1 fL (35.1-46.3); Red Blood Cell Count 3.54 M/mm3 (4.30-5.90); White Blood Cell Count 9.64 K/mm3 (4.00-11.30)
[2023-05-16 05:50] LABS: Bun/Creatinine Ratio 35.7 (12.0-20.0); Calcium, Blood 8.5 mg/dL (8.5-10.1); Creatinine, Blood 1.15 mg/dL (0.60-1.20); Potassium, Blood 3.8 mmol/L (3.5-5.5)
--- NOTE | 2023-05-16 06:29 | NUR ---
SHIFT SUMMARY AROUND 0300 PT C/O ABDOMINAL PAIN AND HE HAD JUST VOIDED 100CC BUT STATED HE FELT LIKE HE MIGHT HAVE A UTI D/T DIFFICULTY URINATING. BLADDER SCANNED PT AND HE HAD 896CC IN HIS BLADDER. NOTIFIED DR. HEREDIA WHO ORDERED A UA AND ST CATH PROTOCOL. UNABLE TO ST CATH PT SUCCESSFULLY D/T ENLARGED PROSTATE. ATTEMPTED TWICE AND ZEHRA ALMODOVAR ATTEMPTED TWICE AND EACH WAS UNSUCCESSFULL. THE ONLY OPTION WAS TO TRY TO GET PATIENT TO THE BEDSIDE COMMODE AND VOID. PT ABLE TO VOID IN BEDSIDE COMMODE AFTER MUCH DIFFICULTY. HOWEVER THE SAMPLE WAS MIXED WITH STOOL SO IS UNABLE TO BE SENT FOR ANALYSIS AT THIS TIME. REPEAT BLADDER SCAN 237CC. PT REPORTS MUCH RELIEF IN HIS PREVIOUSLY REPORTED ABDOMINAL PAIN. SEVERAL LOOSE BMS THIS SHIFT. BILATERAL FEET DRESSINGS ALSO CHANGED AT THE BEGINNING OF SHIFT.
[2023-05-16 07:17] VITALS: BP 120/65
[2023-05-16 07:58] LABS: Source, Urine Straight Cath
[2023-05-16 08:01] LABS: Appearance, Urine Hazy (Clear); Bilirubin, Urine Neg (Neg); Blood, Urine 5+ (Neg); Color, Urine Yellow (P-Yellow); Glucose Qualitative, Urine 1+ (Neg); Ketones, Urine 1+ (Neg); Leukocyte Esterase, Urine 1+ (Neg); Nitrite, Urine Neg (Neg); Protein, Urine 2+ (Neg); Urobilinogen, Urine NORM (Normal)
[2023-05-16 08:12] LABS: Amorphous Mod (0-Heavy); Bacteria Mod /hpf; Squamous Epithelial Cells Few /hpf (Few)
[2023-05-16 15:18] VITALS: BP 135/66
[2023-05-16 15:29] LABS: Vancomycin, Trough 27.7 ug/mL (5.0-10.0)
--- NOTE | 2023-05-16 17:24 | NUR ---
SHIFT SUMMARY- PT IS A/O, PLESANT AND COOPERATIVE. RECIEVED DRESSING CHANGE THIS SHIFT. WOUND CARE WAS CONSULTED, WOUND VAC WILL BE PLACED TOMORROW. RASH ON HANDS BECAME WORSE THIS SHIFT AND IV BENADRYL WAS ORDERED AND ADMINISTERED AWAITING RESULTS. IV INFULTRATED THIS SHIFT AND POWERGLIDE WAS PLACED PER PT REQUEST. HE REPORTED THAT HE PREFERED THAT OVER A PICC LINE AND UNDERSTOOD THAT IT WOUND NEED TO BE CHANGED BEFORE HIS OUT PT WAS COMPLETE. BLADDERSCAN WAS PREFOREMED THIS SHIFT HE WAS ABLE TO STAND AND VOID AND EMPTY HIS BLADDER. HIS BED IS IN THE LOW POSITON AND CALL LIGHT IS WITIN REACH.
[2023-05-17 05:34] VITALS: BP 133/59
[2023-05-17 06:39] LABS: Vancomycin, Random 15.4 ug/mL
--- NOTE | 2023-05-17 06:49 | NUR ---
SHIFT SUMMARY NO EVENTS OVERNIGHT. NO REPORTS OF PAIN. NO DIFFICULTIES VOIDING.
[2023-05-17 07:23] VITALS: BP 125/64
--- NOTE | 2023-05-17 10:51 | NUR ---
WOUND CARE ROUNDED AND ORDERED AT WOUND VAC PLACEMENT, DR QUINTERO ROUNDED, PATIENT MEDICATED WITH BENADRYL PRIOR TO VANCOMYCIN INFUSING FOR POSSIBLE SKIN REACYION, PATIENT DENIES AN SS OF A ALLERGIC REACTION PRESENTLY, USES CALL LIGHT APPRORIATELY, NO SS OF A REACTION TO VANCO, CALL LIGHT WITH IN REACH
--- NOTE | 2023-05-17 13:39 | NUR ---
WOUND CARE PT IS [facility] OF WOUND [facility]IN[facility] AND KNOWN TO THIS RN. ON ASSESSMENT R MEDIAL MALLEOLUS WOUND BED 50% FIBRINOUS SLOUGH. THERE ALSO APPEARS TO BE DEVITALIZED TENDON. WOUND IS NOT APPROPRIATE FOR WOUND VAC AT THIS TIME. SPOKE WITH DR. MELGAR WHO REPORTS HE WILL PERFORM BEDSIDE DEBRIDEMENT TOMORROW 05/18. PT HAS BROUGHT DISCONTINUED HOME WOUND VAC FROM LLE WOUND. NOTIFIED CASE MANAGEMENT THAT HE WILL NEED NEW AUTH THIS IS A NEW ORDER FOR NEW WOUND BEFORE DISCHARGE HOME. LLE WOUND CLEANSED WITH NS, IODOFLEX PLACED TO WOUND BED COVERED WITH EXU-DRY/ROLLED GAUZE/TAPE. PT TOLERATED WELL
[2023-05-17 15:01] VITALS: BP 132/67
--- NOTE | 2023-05-17 18:06 | NUR ---
NO ACUTE CHANGES, WOUND VAC NOT PLACED, PER WOUND CARE NURSE AND WOUND CARE DR, NO WOUND VAC NEEDED, DR TO POSSIBLE DO A I&D AT BEDSIDE, REPORTED + BC TO DR QUINTERO, WOUND CARE NURSE DID BOTH DRESSINGS TODAY, MEDICATED WITH BENADRYL FOR POSSIBLE SKIN REACTION WITH VANCOMYCIN, SKIN RASH HAS IMPROVED, MEDICATED FOR PAIN ONCE WITH TYLENOL, PATIENT VERY PLEASANT WITH STAFF, ALERT AND ORIENTED X4, USES CALL LIGHT, WILL RELAY TO PM RN
[2023-05-17 19:31] VITALS: BP 140/68
[2023-05-18 04:45] VITALS: BP 150/64
[2023-05-18 05:32] LABS: Bun/Creatinine Ratio 30.7 (12.0-20.0); Calcium, Blood 8.5 mg/dL (8.5-10.1); Creatinine, Blood 0.85 mg/dL (0.60-1.20); Potassium, Blood 4.2 mmol/L (3.5-5.5)
--- NOTE | 2023-05-18 05:38 | NUR ---
SHIFT SUMMARY BEDSIDE REPORT BY JOB RN- PT UP TO BATHROOM DURING REPORT, PT ON CONTACT PRECAUTIONS, PT C/O ABDOMEN DISCOMFORT, GAVE TUMS WITH HS MEDS, PT TOLERATED WELL, 2330 CALL TO LAN MALONEY RE: PT REQUESTING MOM, PT REPORTS FEELING LIKE HE MIGHT BE CONSTIPATED AND PT REPORTS HAVING VERY SMALL BMS - PER PT 2 SMALL BMS AFTER MOM- PT CONTINUES TO REPORT ABDOMEN PAIN THAT ALTERNATES BETWEEN PAIN AND PRESSURE= PT REPORTS PAIN TOLERABLE- BED LOW POSITION, CALL LIGHT WITHIN REACH
[2023-05-18 07:34] VITALS: BP 142/73
--- NOTE | 2023-05-18 13:02 | NUR ---
REPORTED TO DR QUINTERO PATIENT C/O ABD PAIN, GI COCKTAIL ORDERED AND FURTHER ORDERS TO BE ENTERED BY DR QUINTERO. PATIENT STARTED ON PROBIOTICS AND BENEFIBER, STOOL SAMPLE SENT
[2023-05-18 15:53] VITALS: BP 124/54
--- NOTE | 2023-05-18 19:26 | NUR ---
REPORT RECEIVED FROM DAYSHIFT RN. WILL PROVIDE CARE T/O SHIFT. CALL LT IN REACH.
--- NOTE | 2023-05-18 19:32 | NUR ---
NO ACUTE CHANGES, PROBIOTICS, BENEFIBER, ANCEF AND A ABD CT DONE TODAY. PATEINT COMPLAINED OF ABD PAIN, STOOL SAMPLE SENT, PATIENTS APPETITE DECREASING DUE TO HIM HAVING TO RUN TO THE TOILET, CIGARETTE ROLLER CONSULT STARTED, BEDSIDE DEBRIDEMENT DONE TODAY, NEW DRESSINGS ON FOR WOUND DOCTOR, SKIN RASH IMPROVED GREATLY, DENIES NV, USES CALL LIGHT APPROPRIATELY, REPORT GIVEN TO JERALD SHAHID
--- NOTE | 2023-05-18 20:00 | NUR ---
PT RESTING. INDEP IN RM. CALL LT IN REACH.
[2023-05-18 20:03] VITALS: BP 139/61
[2023-05-18 21:31] LABS: Vancomycin, Trough 14.7 ug/mL (5.0-10.0)
--- NOTE | 2023-05-18 22:00 | NUR ---
NO COMPLAINTS. MEDS GIVEN. IV ABX INFUSING. NO NEEDS. CALL LT IN REACH.
--- NOTE | 2023-05-19 | NUR ---
PT RESTING QUIETLY. SALINE LOCKED. CALL LT IN REACH.
--- NOTE | 2023-05-19 02:00 | NUR ---
PT RESTING QUIETLY. CALL LT IN REACH.
--- NOTE | 2023-05-19 03:46 | NUR ---
SHIFT SUMMARY: NO ACUTE CHANGES. BILAT DRESSINGS TO FEET INTACT. PT HAS BEEN AMBULATING TO BATHROOM AND BACK TO BED INDEPENDENTLY. NO COMPLAINTS OF PAIN. PT RECEIVED SCHEDULED ABX T/O SHIFT. SINUS RHYTHM AT 79 ON TELE. NO CHEST PAIN OR SOB. ON RA. TARIK PG PATENT. CBG 272. INSULINS GIVEN ACCORDING TO PARAMETERS ON EMAR. WILL CONTINUE TO PROVIDE CARE UNTIL SHIFT REPORT TO ONCOMING NURSE.
--- NOTE | 2023-05-19 04:00 | NUR ---
PT RESTING QUIETLY. CALL LT IN REACH.
[2023-05-19 05:03] VITALS: BP 135/65
--- NOTE | 2023-05-19 06:28 | NUR ---
PT RESTING QUIETLY. NO NEEDS. CALL LT IN REACH.
[2023-05-19 06:44] LABS: Hemoglobin 9.8 g/dL (13.5-17.5); Mean Corpuscular HGB 29.1 pg (26.0-34.0); Mean Corpuscular HGB Conc 32.7 g/dL (31.5-36.5); Mean Corpuscular Volume 89 fL (80-100); Mean Platelet Volume 10.9 fL (9.1-12.4); Platelet Count 326 K/mm3 (150-400); RDW Coefficient Variation 13.6 % (11.7-14.2); RDW Standard Deviation 44.3 fL (35.1-46.3); Red Blood Cell Count 3.37 M/mm3 (4.30-5.90)
[2023-05-19 07:20] VITALS: BP 139/63
[2023-05-19 07:21] LABS: Bun/Creatinine Ratio 22.3 (12.0-20.0); Calcium, Blood 8.4 mg/dL (8.5-10.1); Creatinine, Blood 0.85 mg/dL (0.60-1.20); Potassium, Blood 4.3 mmol/L (3.5-5.5)
--- NOTE | 2023-05-19 12:30 | NUR ---
FRIEND VISITING AT BEDSIDE, DR QUINTERO ROUNDED ON PATIENT, NO NEW ORDERS PRESENTLY, MAKES NEEDS KNOWN, INDEPENDANT TO BR, CALLS APPROPRIATELY
[2023-05-19 15:30] VITALS: BP 128/55
--- NOTE | 2023-05-19 16:58 | NUR ---
NO ACUTE CHANGES, DR QUINTERO REPORTS CT RESULTS TO PATIENT, VSS, TARIK PG IN PLACE SL, USED FOR IV ANTIBIOTICS, USES CALL LIGHT APPROPRIATELY, INDEPENDANT IN ROOM, RASH ON ARMS AND TRUNK GONE, LS CLEAR, NO SOB, SATS 98% ON RA, PATIENT REPORTS IMPROVED ABD PAINMAND GETTING MORE SLEEP. CALL LIGHT WITH IN REACH, WILL RELAY TO PM RN
[2023-05-19 20:36] VITALS: BP 153/65
[2023-05-20 05:00] VITALS: BP 148/71
--- NOTE | 2023-05-20 06:36 | NUR ---
SHIFT SUMMARY PT UP TO BATHROOM DURING BEDSIDE REPORT, PT BILAT BANDAGES= C/D & I - PT TOOK HS MEDS WITHOUT C/O OF NAUSEA, PT REQUESTED BENADRYL FOR ITCHING/RASH AND TYLENOL FOR MILD ABDOMEN PAIN- PT REQUESTED TO HAVE TELE MONITOR REMOVED, CALL TO LAN SENIOR HARDWARE ENGINEER - LOOKED OVER TELE STRIPS WITH NO EVENTS NOTES- REMOVED TELE PER ORDER- PT SLEPT T/O NIGHT, GAVE PRILOSEC IN AM, NO C/O AT THAT TIME- PT CALLS APPROPRIATELY
[2023-05-20 07:56] VITALS: BP 144/63
[2023-05-20 09:44] LABS: Vancomycin, Trough 16.2 ug/mL (5.0-10.0)
[2023-05-20 16:53] VITALS: BP 141/66
--- NOTE | 2023-05-20 17:53 | NUR ---
SUMMARY- NO ACUTE EVENTS THIS SHIFT. BILATERAL DRESSING CHANGES PERFORMED ON PT'S FEET. WOUND CARE PERFORMED PER WOUND ORDERS ON THE RIGHT FOOT. NO WOUND CARE ORDERS FOR THE LEFT FOOT, BUT RN CHANGED DRESSING AND PLACED THE NEW DRESSING EXACTLY THE OLD DRESSING WAS PLACED. PT DENIED PAIN THE ENTIRE SHIFT EXCEPT BRIEFLY DURING WOUND PACKING ON THE RIGHT FOOT. AAOX4. SBA. CALM AND COOPERATIVE THIS SHIFT.
[2023-05-20 20:32] VITALS: BP 133/60
--- NOTE | 2023-05-21 01:05 | NUR ---
PT A&OX4 ADLIB INDEPENDENT, CALL APPROPERIATELY, LUNGS CLEAR T/O, BS PRESENT.RECEIVING ABX TO TARIK STONE. PT HAS BLE WOUNDS WRAPPED IN BANDAGES BEING MANAGED BY WOUNDCARE. C/D/I. CALL ASTUDILLO WITHIN REACH. BED LOWERED WILL CONITNUE TO MONITOR.
[2023-05-21 04:58] VITALS: BP 138/69
--- NOTE | 2023-05-21 05:44 | NUR ---
SHIFT SUMMARY PATIENT DENIES PAIN, NAUSEA, AND SHORTNESS OF BREATH. PATIENT IS A&O X4. PATIENT IS A SBA TO THE BATHROOM. PATIENT SLEPT ON AND OFF THROUGHOUT SHIFT. PATIENT IN CONTACT ISOLATION FOR MRSA. PATIENT IS PLEASANT AND COOPERATIVE WITH CARE.
[2023-05-21 06:01] LABS: Bun/Creatinine Ratio 17.1 (12.0-20.0); Calcium, Blood 8.4 mg/dL (8.5-10.1); Creatinine, Blood 1.05 mg/dL (0.60-1.20); Potassium, Blood 4.7 mmol/L (3.5-5.5)
[2023-05-21 08:06] VITALS: BP 150/67
[2023-05-21 15:28] VITALS: BP 133/54
--- NOTE | 2023-05-21 15:47 | NUR ---
RECEIVED ORDER TO PLACE WOUND VAC. ASSESSED WOUND WITH THREADING MACHINE OPERATOR, EXPOSED TENDON VISIBLE IN WOUND. DISCUSSED WITH HOSPITALIST WHO RECOMMENDED TO DISCUSS WITH FINANCIAL SYSTEMS MANAGER. SPOKE WITH FINANCIAL SYSTEMS MANAGER WHO STATED THAT WOUND VAC STILL INDICATED, BUT THAT TENDON NEEDS TO BE COVERED WITH WHITE FOAM. UNABLE TO LOCATE WHITE FOAM IN SUPPLIES, DISCUSSED WITH THREADING MACHINE OPERATOR X 2. CONFIRMED THAT WHITE FOAM IS NOT AVAILABLE IN HOSPITAL SUPPLY D/T HOSPITAL WOUND VAC NOT BEING COMPATIBLE WITH WHITE FOAM. WILL RE-DRESS WOUND PER WOUND CARE ORDERS AND REQUEST WOUND RN TO FOLLOWUP.
--- NOTE | 2023-05-21 18:31 | NUR ---
SHIFT SUMMARY: SAUL IS A&OX4. VSS, NO ACUTE EVENTS THIS SHIFT. PLEASE SEE NOTE REGARDING ATTEMPT TO PLACE WOUND VAC. PT IS INDEPENDENT IN THE ROOM, POWERGLIDE TO TARIK PATENT, TOLERATING PO INTAKE WELL, DRESSING CHANGED TO RIGHT LOWER EXTREMITY. HE IS LYING IN BED WITH THE CALL LIGHT IN REACH. WCTM UNTIL REPORT IS GIVEN TO AIRCRAFT NAVIGATOR RN.
[2023-05-21 20:05] VITALS: BP 147/66
--- NOTE | 2023-05-22 02:12 | NUR ---
PT A&0X4 ADLIB W STANDBY ASSIST. PT REPORTS MILD TO MODERATE DISCOMFORT TO BLE. LLE BANDAGED IN DRY DRESSING W BANDAGE OVER HX OF METATARSAL AMPUTATION RLE WET TO DRY DRESSING WITH BANDAGE TO ANKLE AND INSTEP SCANT WEEPING. PT LUNGS CLEAR T/O. BS ALL QUADS. BED LOW. CALL ASTUDILLO WITHIN REACH WILL CONTINUE TO MONITOR.
[2023-05-22 05:33] VITALS: BP 149/68
--- NOTE | 2023-05-22 05:34 | NUR ---
SHIFT SUMMARY PATIENT DENIES PAIN, NAUSEA, AND SHORTNESS OF BREATH. PATIENT IS SBA TO BATHROOM. PATIENT [facility] DRESSINGS TO [facility], BOTH ARE C/D/I. PATIENT SLEPT FOR MOST OF SHIFT. PATIENT IS IN CONTACT ISOLATION FOR MRSA. PATIENT IS A&O X4. PATIENT IS PLEASANT AND COOPERATIVE WITH CARE. PATIENT CALLS APPROPRIATELY.
[2023-05-22 08:07] VITALS: BP 130/66
[2023-05-22 08:52] LABS: Creatinine, Blood 1.01 mg/dL (0.60-1.20)
--- NOTE | 2023-05-22 11:24 | NUR ---
RN NOTES. LEFT FOOT AND RIGHT ANKLE WOUND DRESSINGS CHANGED. YELLOW EXUDATE FROM BOTH WOUNDS, LEAKING THROUGH THE RIGHT ANKLE OLD BANDAGE. IRRIGATED WELL WITH NORMAL SALINE. ANKLE WOUND PACKED WITH IODINE. 4X4 APPLIED, THEN ABD, KERLEX AND NON-TIGHT LAURITA WRAP BANDAGES. SWELLING NOTED TO RIGHT FOOT AND LEFT LEG. DECREASED SENSATION TO EXTREMITIES, NO CHANGE IN SENSATION FROM LAST FEW DAYS PER PT REPORT.
[2023-05-22] MEDS ORDERED: JUVEN PACKET1 EAC3 PO ×2 (12:24)
[2023-05-22] MEDS ORDERED: FLOMAX0.4 MG PO ×2 (12:24)
[2023-05-22] MEDS ORDERED: VANCOMYCIN HCL1 G1 IV ×2 (12:25)
[2023-05-22] MEDS ORDERED: VISBIOME 112.51 EACH PO ×2 (12:26)
--- NOTE | 2023-05-22 15:31 | NUR ---
DISCHARGE NOTE MR TOMLINSON IS DISCHARGING HOME WITH HIS FRIEND AT 1532HRS. HE HAS RUE POWERGLIDE IN PLACE FOR OUTPATIENT ANTIBIOTICS. HE SAID THAT HE HAS HAD A POWERGLIDE IN PLACE AT HOME BEFORE AND VERBALISED UNDERSTANDING OF IV CARE. HE IS GOING TO CALL OUT PATIENT IV INFUSION CLINIC AT 0800HRS TOMORROW TO SET UP IV ABX APPOINTMENT UNABLE TO SCHEDULE HIM ON A TUESDAY. HE HAS AN APPOINTMENT WITH THE WOUND CARE CLINIC TOMORROW AFTERNOON. HIS WOUNDS WERE REDRESSED TODAY. PT VERBALISED UNDERSTANDING OF WRITTEN AND VERBAL DISCHARGE INSTRUCTIONS AND ANY QUESTIONS WERE ANSWERED BY DR LUCAS AND MYSELF. HE HAD NO CONCERNS AT TIME OF DISCHARGE.
== END 2023-05-22 15:32 | disposition home or self-care (01) | DRG 853 ==
LOC: ER 10:35 → MEDS 13:44 → PCU 13:44 → MEDS 05-15 10:57 → ENPENDDIS 05-22 14:50 → MEDS 05-22 15:32
PROVIDERS: Internal Medicine; Student in an Organized Health Care Education/Training Program; ADMIT Internal Medicine
PROC: 3E03329 Introduction of Other Anti-infective into Peripheral Vein, Percutaneous Approach (ICD-10-PCS; 2023-05-14)
PROC: 0QBG0ZZ Excision of Right Tibia, Open Approach (ICD-10-PCS; principal; 2023-05-15)
PROC: 0QBG0ZX Excision of Right Tibia, Open Approach, Diagnostic (ICD-10-PCS; 2023-05-15)
DX: A41.02 Sepsis due to Methicillin resistant Staphylococcus aureus (principal); A48.0 Gas gangrene; M00.9 Pyogenic arthritis, unspecified; E11.52 Type 2 diabetes mellitus with diabetic peripheral angiopathy with gangrene; L02.415 Cutaneous abscess of right lower limb; L03.115 Cellulitis of right lower limb; M86.171 Other acute osteomyelitis, right ankle and foot; R65.20 Severe sepsis without septic shock; E11.69 Type 2 diabetes mellitus with other specified complication; E11.65 Type 2 diabetes mellitus with hyperglycemia; J45.909 Unspecified asthma, uncomplicated; E78.5 Hyperlipidemia, unspecified; I10 Essential (primary) hypertension; J43.9 Emphysema, unspecified; K21.9 Gastro-esophageal reflux disease without esophagitis; E66.9 Obesity, unspecified; R33.9 Retention of urine, unspecified; K29.70 Gastritis, unspecified, without bleeding; K52.9 Noninfective gastroenteritis and colitis, unspecified; Z89.412 Acquired absence of left great toe; Z89.422 Acquired absence of other left toe(s); Z98.890 Other specified postprocedural states; Z79.4 Long term (current) use of insulin; Z79.84 Long term (current) use of oral hypoglycemic drugs; Z79.811 Long term (current) use of aromatase inhibitors; Z91.040 Latex allergy status; Z91.013 Allergy to seafood; Z91.018 Allergy to other foods; Z87.891 Personal history of nicotine dependence; Z87.81 Personal history of (healed) traumatic fracture; Z68.30 Body mass index [BMI] 30.0-30.9, adult
CPT/HCPCS: 36415; 73610; 73701; 74160; 80048; 80053; 80202; 81001; 82565; 82947; 83605; 83690; 85025; 85027; 86140; 87015; 87040; 87045; 87046; 87070; 87071; 87075; 87077; 87086; 87147; 87186; 87205; 87899; 88305; 88311; 93308; 93321; 94760; 96374; 96375; 99285-25; A9270; C1751; J0690; J0692; J1200; J1650; J1815; J2001; J2250; J2405; J2543; J2704; J3010; J3370; J7030; J7050; J7120; Q9967

== ENCOUNTER 2023-05-23 01:14 | Day surgery (SDC) | payer OTHER ==
[~2023-05-23 01:14] MED LIST changes: +FLOMAX0.4 MG PO; +JUVEN PACKET1 EAC3 PO; +VANCOMYCIN HCL1 G1 IV
== END 2023-05-23 23:09 | disposition home or self-care (01) ==
LOC: WOUND 01:14
DX: E11.622 Type 2 diabetes mellitus with other skin ulcer (principal); L97.315 Non-pressure chronic ulcer of right ankle with muscle involvement without evidence of necrosis; E11.621 Type 2 diabetes mellitus with foot ulcer; L97.422 Non-pressure chronic ulcer of left heel and midfoot with fat layer exposed; L89.894 Pressure ulcer of other site, stage 4; M86.372 Chronic multifocal osteomyelitis, left ankle and foot; I73.9 Peripheral vascular disease, unspecified; R77.0 Abnormality of albumin; E11.40 Type 2 diabetes mellitus with diabetic neuropathy, unspecified; E11.65 Type 2 diabetes mellitus with hyperglycemia; M86.8X7 Other osteomyelitis, ankle and foot; J45.909 Unspecified asthma, uncomplicated; E78.5 Hyperlipidemia, unspecified; I10 Essential (primary) hypertension; Z87.891 Personal history of nicotine dependence; Z91.040 Latex allergy status
CPT/HCPCS: 96365; A9270; J3370

== ENCOUNTER 2023-05-23 08:32 | Day surgery (SDC) | payer OTHER ==
[2023-05-23 14:50] VITALS: BP 148/69
== END 2023-05-23 15:43 | disposition home or self-care (01) ==
LOC: ATC 08:32
DX: E11.69 Type 2 diabetes mellitus with other specified complication (principal); M86.8X7 Other osteomyelitis, ankle and foot; J45.909 Unspecified asthma, uncomplicated; E78.5 Hyperlipidemia, unspecified; I10 Essential (primary) hypertension; Z87.891 Personal history of nicotine dependence; Z91.040 Latex allergy status
CPT/HCPCS: J3370

== ENCOUNTER 2023-05-24 02:22 | Day surgery (SDC) | payer OTHER ==
[2023-05-24 07:35] VITALS: BP 143/69
[2023-05-25] MEDS ORDERED: CUBICIN RF500 M1 IV (07:42)
== END 2023-05-24 17:20 | disposition home or self-care (01) ==
LOC: ATC 02:22
DX: E11.69 Type 2 diabetes mellitus with other specified complication (principal); M86.9 Osteomyelitis, unspecified
CPT/HCPCS: 96365; J3370

== ENCOUNTER 2023-05-25 01:26 | Day surgery (SDC) | payer OTHER ==
[2023-05-25] MEDS ORDERED: CUBICIN RF500 M1 IV (07:42)
== END 2023-05-25 23:20 | disposition home or self-care (01) ==
LOC: WOUND 01:26
DX: E11.621 Type 2 diabetes mellitus with foot ulcer (principal); L89.894 Pressure ulcer of other site, stage 4; E11.622 Type 2 diabetes mellitus with other skin ulcer; E11.69 Type 2 diabetes mellitus with other specified complication; M86.372 Chronic multifocal osteomyelitis, left ankle and foot; E11.51 Type 2 diabetes mellitus with diabetic peripheral angiopathy without gangrene; R77.0 Abnormality of albumin; E11.40 Type 2 diabetes mellitus with diabetic neuropathy, unspecified; E11.65 Type 2 diabetes mellitus with hyperglycemia; A41.9 Sepsis, unspecified organism; L03.115 Cellulitis of right lower limb; I10 Essential (primary) hypertension; J45.909 Unspecified asthma, uncomplicated
CPT/HCPCS: 96365; G0463; J0878

== ENCOUNTER 2023-05-25 08:30 | Day surgery (SDC) | payer OTHER ==
[2023-05-25 07:37] VITALS: BP 155/63
[~2023-05-25 08:30] MED LIST changes: +CUBICIN RF500 M1 IV
== END 2023-05-25 23:20 | disposition home or self-care (01) ==
LOC: ATC 08:30
DX: A41.9 Sepsis, unspecified organism (principal); L03.115 Cellulitis of right lower limb; E11.9 Type 2 diabetes mellitus without complications; I10 Essential (primary) hypertension; J45.909 Unspecified asthma, uncomplicated
CPT/HCPCS: 96365; J0878

== ENCOUNTER 2023-05-26 01:34 | Day surgery (SDC) | payer OTHER ==
[2023-05-26 09:23] VITALS: BP 135/67
== END 2023-05-26 09:45 | disposition home or self-care (01) ==
LOC: ATC 01:34
DX: A41.9 Sepsis, unspecified organism (principal); R65.20 Severe sepsis without septic shock; L03.115 Cellulitis of right lower limb; M00.9 Pyogenic arthritis, unspecified; E11.9 Type 2 diabetes mellitus without complications; E78.5 Hyperlipidemia, unspecified; J45.909 Unspecified asthma, uncomplicated; I10 Essential (primary) hypertension; Z87.891 Personal history of nicotine dependence; Z91.040 Latex allergy status; Z91.018 Allergy to other foods; Z79.4 Long term (current) use of insulin; Z79.899 Other long term (current) drug therapy
CPT/HCPCS: 96365; J0878

== ENCOUNTER 2023-05-27 02:18 | Day surgery (SDC) | payer OTHER | END 2023-05-27 22:43 | disposition home or self-care (01) | LOC: WOUND 02:18 | DX: E11.621 Type 2 diabetes mellitus with foot ulcer (principal); L89.894 Pressure ulcer of other site, stage 4; E11.622 Type 2 diabetes mellitus with other skin ulcer; M86.372 Chronic multifocal osteomyelitis, left ankle and foot; E11.51 Type 2 diabetes mellitus with diabetic peripheral angiopathy without gangrene; R77.0 Abnormality of albumin; E11.40 Type 2 diabetes mellitus with diabetic neuropathy, unspecified; E11.65 Type 2 diabetes mellitus with hyperglycemia; E11.69 Type 2 diabetes mellitus with other specified complication; L03.115 Cellulitis of right lower limb; M86.8X7 Other osteomyelitis, ankle and foot; J45.909 Unspecified asthma, uncomplicated; E78.5 Hyperlipidemia, unspecified; I10 Essential (primary) hypertension | CPT/HCPCS: 96365; G0463; J0878 ==

== ENCOUNTER 2023-05-29 00:07 | Day surgery (SDC) | payer OTHER ==
[2023-05-29 11:05] VITALS: BP 131/60
== END 2023-05-29 11:34 | disposition home or self-care (01) ==
LOC: ATC 00:07
DX: A41.9 Sepsis, unspecified organism (principal); R65.20 Severe sepsis without septic shock; L03.115 Cellulitis of right lower limb; E11.9 Type 2 diabetes mellitus without complications; J45.909 Unspecified asthma, uncomplicated
CPT/HCPCS: 96365; J0878

== ENCOUNTER 2023-05-30 00:24 | Day surgery (SDC) | payer OTHER ==
[2023-05-30 11:07] VITALS: BP 132/70
== END 2023-05-30 11:29 | disposition home or self-care (01) ==
LOC: ATC 00:24
DX: L03.115 Cellulitis of right lower limb (principal); J45.909 Unspecified asthma, uncomplicated; I10 Essential (primary) hypertension; E11.9 Type 2 diabetes mellitus without complications; E78.5 Hyperlipidemia, unspecified; Z79.4 Long term (current) use of insulin; Z87.891 Personal history of nicotine dependence
CPT/HCPCS: 96365; J0878

== ENCOUNTER 2023-05-30 02:00 | Day surgery (SDC) | payer OTHER | END 2023-05-30 22:50 | disposition home or self-care (01) | LOC: WOUND 02:00 | DX: E11.621 Type 2 diabetes mellitus with foot ulcer (principal); L97.422 Non-pressure chronic ulcer of left heel and midfoot with fat layer exposed; E11.622 Type 2 diabetes mellitus with other skin ulcer; L97.315 Non-pressure chronic ulcer of right ankle with muscle involvement without evidence of necrosis; T81.31XD Disruption of external operation (surgical) wound, not elsewhere classified, subsequent encounter; L89.894 Pressure ulcer of other site, stage 4; E11.69 Type 2 diabetes mellitus with other specified complication; M86.372 Chronic multifocal osteomyelitis, left ankle and foot; E11.40 Type 2 diabetes mellitus with diabetic neuropathy, unspecified; Y83.8 Other surgical procedures as the cause of abnormal reaction of the patient, or of later complication, without mention of misadventure at the time of the procedure; L03.115 Cellulitis of right lower limb; J45.909 Unspecified asthma, uncomplicated; I10 Essential (primary) hypertension; E78.5 Hyperlipidemia, unspecified; Z79.4 Long term (current) use of insulin; Z87.891 Personal history of nicotine dependence | CPT/HCPCS: 96365; A9270; G0463; J0878 ==

== ENCOUNTER 2023-05-31 01:39 | Day surgery (SDC) | payer OTHER ==
[2023-05-31 11:11] VITALS: BP 148/73
== END 2023-05-31 11:39 | disposition home or self-care (01) ==
LOC: ATC 01:39
DX: L03.115 Cellulitis of right lower limb (principal); E11.9 Type 2 diabetes mellitus without complications; I10 Essential (primary) hypertension; J45.909 Unspecified asthma, uncomplicated
CPT/HCPCS: 96365; J0878

== ENCOUNTER 2023-06-01 05:23 | Day surgery (SDC) | payer OTHER ==
[2023-06-01 10:40] VITALS: BP 158/74
== END 2023-06-01 11:04 | disposition home or self-care (01) ==
LOC: ATC 05:23
DX: L03.115 Cellulitis of right lower limb (principal); J45.909 Unspecified asthma, uncomplicated; E11.9 Type 2 diabetes mellitus without complications; E78.5 Hyperlipidemia, unspecified; I10 Essential (primary) hypertension; Z79.4 Long term (current) use of insulin
CPT/HCPCS: 96365; J0878

== ENCOUNTER 2023-06-01 11:21 | Day surgery (SDC) | payer OTHER | END 2023-06-01 23:05 | disposition home or self-care (01) | LOC: WOUND 11:21 | DX: E11.621 Type 2 diabetes mellitus with foot ulcer (principal); L89.894 Pressure ulcer of other site, stage 4; E11.622 Type 2 diabetes mellitus with other skin ulcer; E11.69 Type 2 diabetes mellitus with other specified complication; M86.372 Chronic multifocal osteomyelitis, left ankle and foot; E11.51 Type 2 diabetes mellitus with diabetic peripheral angiopathy without gangrene; L03.115 Cellulitis of right lower limb; J45.909 Unspecified asthma, uncomplicated; E78.5 Hyperlipidemia, unspecified; I10 Essential (primary) hypertension; Z79.4 Long term (current) use of insulin | CPT/HCPCS: 96365; G0463; J0878 ==

== ENCOUNTER 2023-06-03 04:59 | Day surgery (SDC) | payer OTHER ==
[2023-06-03 07:59] VITALS: BP 154/71
== END 2023-06-03 08:30 | disposition home or self-care (01) ==
LOC: ATC 04:59
DX: A41.9 Sepsis, unspecified organism (principal); R65.20 Severe sepsis without septic shock; L03.115 Cellulitis of right lower limb; E11.9 Type 2 diabetes mellitus without complications; I12.9 Hypertensive chronic kidney disease with stage 1 through stage 4 chronic kidney disease, or unspecified chronic kidney disease; J45.909 Unspecified asthma, uncomplicated; Z79.4 Long term (current) use of insulin
CPT/HCPCS: 96365; J0878

== ENCOUNTER 2023-06-03 05:01 | Day surgery (SDC) | payer OTHER | END 2023-06-03 22:40 | disposition home or self-care (01) | LOC: WOUND 05:01 | DX: E11.621 Type 2 diabetes mellitus with foot ulcer (principal); L89.894 Pressure ulcer of other site, stage 4; E11.622 Type 2 diabetes mellitus with other skin ulcer; E11.69 Type 2 diabetes mellitus with other specified complication; M86.372 Chronic multifocal osteomyelitis, left ankle and foot; E11.51 Type 2 diabetes mellitus with diabetic peripheral angiopathy without gangrene; R77.0 Abnormality of albumin; E11.40 Type 2 diabetes mellitus with diabetic neuropathy, unspecified; E11.65 Type 2 diabetes mellitus with hyperglycemia | CPT/HCPCS: G0463 ==

== ENCOUNTER 2023-06-04 00:05 | Day surgery (SDC) | payer OTHER ==
[2023-06-04 10:32] VITALS: BP 161/76
== END 2023-06-04 10:54 | disposition home or self-care (01) ==
LOC: ATC 00:05
DX: L03.115 Cellulitis of right lower limb (principal); E11.9 Type 2 diabetes mellitus without complications; I10 Essential (primary) hypertension; J45.909 Unspecified asthma, uncomplicated; E78.5 Hyperlipidemia, unspecified; Z79.4 Long term (current) use of insulin
CPT/HCPCS: 96365; J0878

== ENCOUNTER 2023-06-05 10:51 | Day surgery (SDC) | payer OTHER ==
[2023-06-05 10:55] VITALS: BP 170/81
== END 2023-06-05 11:16 | disposition home or self-care (01) ==
LOC: ATC 10:51
DX: A41.9 Sepsis, unspecified organism (principal); R65.20 Severe sepsis without septic shock; E11.9 Type 2 diabetes mellitus without complications; E78.5 Hyperlipidemia, unspecified; Z89.422 Acquired absence of other left toe(s); Z91.040 Latex allergy status; Z91.013 Allergy to seafood
CPT/HCPCS: 96365; J0878

== ENCOUNTER 2023-06-06 03:04 | Day surgery (SDC) | payer OTHER | END 2023-06-07 23:00 | disposition home or self-care (01) | LOC: WOUND 03:04 | DX: E11.621 Type 2 diabetes mellitus with foot ulcer (principal); L97.422 Non-pressure chronic ulcer of left heel and midfoot with fat layer exposed; E11.622 Type 2 diabetes mellitus with other skin ulcer; L97.315 Non-pressure chronic ulcer of right ankle with muscle involvement without evidence of necrosis; T81.30XA Disruption of wound, unspecified, initial encounter; L89.894 Pressure ulcer of other site, stage 4; E11.69 Type 2 diabetes mellitus with other specified complication; M86.372 Chronic multifocal osteomyelitis, left ankle and foot; E11.51 Type 2 diabetes mellitus with diabetic peripheral angiopathy without gangrene; E11.40 Type 2 diabetes mellitus with diabetic neuropathy, unspecified; A41.9 Sepsis, unspecified organism; L03.115 Cellulitis of right lower limb; J45.909 Unspecified asthma, uncomplicated; E78.5 Hyperlipidemia, unspecified; L97.519 Non-pressure chronic ulcer of other part of right foot with unspecified severity; I10 Essential (primary) hypertension; Z89.422 Acquired absence of other left toe(s); Z87.891 Personal history of nicotine dependence; Z91.018 Allergy to other foods; Z91.040 Latex allergy status; Z91.013 Allergy to seafood; Z79.4 Long term (current) use of insulin; Z79.899 Other long term (current) drug therapy | CPT/HCPCS: 96365; A9270; G0463; J0878 ==

== ENCOUNTER 2023-06-07 00:21 | Day surgery (SDC) | payer OTHER ==
[2023-06-07 11:12] VITALS: BP 162/80
== END 2023-06-07 11:35 | disposition home or self-care (01) ==
LOC: ATC 00:21
DX: L03.115 Cellulitis of right lower limb (principal); R65.20 Severe sepsis without septic shock; E11.9 Type 2 diabetes mellitus without complications; J45.909 Unspecified asthma, uncomplicated; E78.5 Hyperlipidemia, unspecified; I10 Essential (primary) hypertension
CPT/HCPCS: J0878

== ENCOUNTER 2023-06-08 02:25 | Day surgery (SDC) | payer OTHER ==
[2023-06-08 11:00] VITALS: BP 158/79
== END 2023-06-08 11:27 | disposition home or self-care (01) ==
LOC: ATC 02:25
DX: L03.115 Cellulitis of right lower limb (principal); E11.9 Type 2 diabetes mellitus without complications; J45.909 Unspecified asthma, uncomplicated; E78.5 Hyperlipidemia, unspecified; I10 Essential (primary) hypertension
CPT/HCPCS: 96365; J0878

== ENCOUNTER 2023-06-08 02:39 | Day surgery (SDC) | payer OTHER | END 2023-06-08 22:49 | disposition home or self-care (01) | LOC: WOUND 02:39 | DX: E11.621 Type 2 diabetes mellitus with foot ulcer (principal); L89.894 Pressure ulcer of other site, stage 4; E11.622 Type 2 diabetes mellitus with other skin ulcer; M86.372 Chronic multifocal osteomyelitis, left ankle and foot; E11.69 Type 2 diabetes mellitus with other specified complication; E11.51 Type 2 diabetes mellitus with diabetic peripheral angiopathy without gangrene; R77.0 Abnormality of albumin; E11.40 Type 2 diabetes mellitus with diabetic neuropathy, unspecified; E11.65 Type 2 diabetes mellitus with hyperglycemia; L03.115 Cellulitis of right lower limb; J45.909 Unspecified asthma, uncomplicated; E78.5 Hyperlipidemia, unspecified; I10 Essential (primary) hypertension | CPT/HCPCS: 96365; G0463; J0878 ==

== ENCOUNTER 2023-06-09 03:08 | Day surgery (SDC) | payer OTHER ==
[2023-06-09 09:05] VITALS: BP 176/76
== END 2023-06-09 09:30 | disposition home or self-care (01) ==
LOC: ATC 03:08
DX: A41.9 Sepsis, unspecified organism (principal); R65.20 Severe sepsis without septic shock; L03.115 Cellulitis of right lower limb; M00.9 Pyogenic arthritis, unspecified; E11.9 Type 2 diabetes mellitus without complications; I10 Essential (primary) hypertension; J45.909 Unspecified asthma, uncomplicated
CPT/HCPCS: 96365; J0878

== ENCOUNTER 2023-06-10 02:41 | Day surgery (SDC) | payer OTHER ==
[2023-06-10 10:25] VITALS: BP 160/78
== END 2023-06-10 23:09 | disposition home or self-care (01) ==
LOC: ATC 02:41
DX: L03.115 Cellulitis of right lower limb (principal); E11.9 Type 2 diabetes mellitus without complications; J45.909 Unspecified asthma, uncomplicated; E78.5 Hyperlipidemia, unspecified; I10 Essential (primary) hypertension
CPT/HCPCS: 96365; J0878

== ENCOUNTER 2023-06-10 03:08 | Day surgery (SDC) | payer OTHER | END 2023-06-10 23:09 | disposition home or self-care (01) | LOC: WOUND | DX: E11.621 Type 2 diabetes mellitus with foot ulcer (principal); L89.894 Pressure ulcer of other site, stage 4; E11.622 Type 2 diabetes mellitus with other skin ulcer; M86.372 Chronic multifocal osteomyelitis, left ankle and foot; E11.51 Type 2 diabetes mellitus with diabetic peripheral angiopathy without gangrene; R77.0 Abnormality of albumin; E11.40 Type 2 diabetes mellitus with diabetic neuropathy, unspecified; E11.65 Type 2 diabetes mellitus with hyperglycemia; E11.69 Type 2 diabetes mellitus with other specified complication | CPT/HCPCS: G0463 ==

== ENCOUNTER 2023-06-11 10:47 | Day surgery (SDC) | payer OTHER ==
[2023-06-11 10:58] VITALS: BP 166/71
== END 2023-06-11 11:50 | disposition home or self-care (01) ==
LOC: ATC 10:47
DX: A41.9 Sepsis, unspecified organism (principal); E78.5 Hyperlipidemia, unspecified; I10 Essential (primary) hypertension; R65.20 Severe sepsis without septic shock; L03.115 Cellulitis of right lower limb; J45.909 Unspecified asthma, uncomplicated; E11.9 Type 2 diabetes mellitus without complications
CPT/HCPCS: 96365; J0878

== ENCOUNTER 2023-06-12 06:24 | Day surgery (SDC) | payer OTHER ==
[2023-06-12 10:52] VITALS: BP 155/79
== END 2023-06-12 11:16 | disposition home or self-care (01) ==
LOC: ATC 06:24
DX: L03.115 Cellulitis of right lower limb (principal); J45.909 Unspecified asthma, uncomplicated; E11.9 Type 2 diabetes mellitus without complications; I10 Essential (primary) hypertension; E78.5 Hyperlipidemia, unspecified
CPT/HCPCS: 96365; J0878

== ENCOUNTER 2023-06-13 02:07 | Day surgery (SDC) | payer OTHER ==
[2023-06-13 11:13] VITALS: BP 170/88
== END 2023-06-13 11:39 | disposition home or self-care (01) ==
LOC: ATC 02:07
DX: L03.115 Cellulitis of right lower limb (principal); E11.9 Type 2 diabetes mellitus without complications; J45.909 Unspecified asthma, uncomplicated; E78.5 Hyperlipidemia, unspecified; I10 Essential (primary) hypertension
CPT/HCPCS: J0878

== ENCOUNTER 2023-06-13 02:20 | Day surgery (SDC) | payer OTHER | END 2023-06-13 22:51 | disposition home or self-care (01) | LOC: WOUND | DX: E11.621 Type 2 diabetes mellitus with foot ulcer (principal); L97.422 Non-pressure chronic ulcer of left heel and midfoot with fat layer exposed; E11.622 Type 2 diabetes mellitus with other skin ulcer; L97.312 Non-pressure chronic ulcer of right ankle with fat layer exposed; L89.894 Pressure ulcer of other site, stage 4; E11.51 Type 2 diabetes mellitus with diabetic peripheral angiopathy without gangrene; E11.69 Type 2 diabetes mellitus with other specified complication; M86.372 Chronic multifocal osteomyelitis, left ankle and foot; R77.0 Abnormality of albumin; L03.115 Cellulitis of right lower limb; J45.909 Unspecified asthma, uncomplicated; E78.5 Hyperlipidemia, unspecified; I10 Essential (primary) hypertension | CPT/HCPCS: 96365; G0463; J0878 ==

== ENCOUNTER 2023-06-16 05:08 | Day surgery (SDC) | payer OTHER ==
[2023-06-16 10:43] VITALS: BP 189/79
== END 2023-06-16 11:15 | disposition home or self-care (01) ==
LOC: ATC 05:08
DX: A41.9 Sepsis, unspecified organism (principal); R65.20 Severe sepsis without septic shock; L03.115 Cellulitis of right lower limb; E11.9 Type 2 diabetes mellitus without complications; I10 Essential (primary) hypertension; J45.909 Unspecified asthma, uncomplicated; E78.5 Hyperlipidemia, unspecified; Z87.891 Personal history of nicotine dependence; Z79.4 Long term (current) use of insulin; Z79.899 Other long term (current) drug therapy
CPT/HCPCS: 96365; J0878

== ENCOUNTER 2023-06-17 04:34 | Day surgery (SDC) | payer OTHER ==
[2023-06-17 11:19] VITALS: BP 191/81
== END 2023-06-17 11:43 | disposition home or self-care (01) ==
LOC: ATC 04:34
DX: A41.9 Sepsis, unspecified organism (principal); R65.20 Severe sepsis without septic shock; L03.115 Cellulitis of right lower limb; E11.9 Type 2 diabetes mellitus without complications; J45.909 Unspecified asthma, uncomplicated; E78.5 Hyperlipidemia, unspecified; I10 Essential (primary) hypertension; Z87.891 Personal history of nicotine dependence; Z79.4 Long term (current) use of insulin; Z79.899 Other long term (current) drug therapy
CPT/HCPCS: 96365; J0878

== ENCOUNTER 2023-06-17 04:49 | Day surgery (SDC) | payer OTHER | END 2023-06-17 22:50 | disposition home or self-care (01) | LOC: WOUND 04:49 | DX: E11.621 Type 2 diabetes mellitus with foot ulcer (principal); L97.422 Non-pressure chronic ulcer of left heel and midfoot with fat layer exposed; E11.622 Type 2 diabetes mellitus with other skin ulcer; L97.312 Non-pressure chronic ulcer of right ankle with fat layer exposed; L89.894 Pressure ulcer of other site, stage 4; E11.69 Type 2 diabetes mellitus with other specified complication; M86.372 Chronic multifocal osteomyelitis, left ankle and foot; E11.51 Type 2 diabetes mellitus with diabetic peripheral angiopathy without gangrene | CPT/HCPCS: G0463 ==

== ENCOUNTER 2023-06-20 02:20 | Day surgery (SDC) | payer OTHER ==
[2023-06-20 11:07] VITALS: BP 179/80
== END 2023-06-20 11:54 | disposition home or self-care (01) ==
LOC: ATC 02:20
DX: A41.9 Sepsis, unspecified organism (principal); L03.115 Cellulitis of right lower limb; E11.9 Type 2 diabetes mellitus without complications; I10 Essential (primary) hypertension; J45.909 Unspecified asthma, uncomplicated; Z91.041 Radiographic dye allergy status; Z91.040 Latex allergy status; Z91.013 Allergy to seafood; E78.5 Hyperlipidemia, unspecified; Z87.891 Personal history of nicotine dependence; Z79.4 Long term (current) use of insulin; R65.20 Severe sepsis without septic shock
CPT/HCPCS: 96365; C1751; J0878

== ENCOUNTER 2023-06-20 03:03 | Day surgery (SDC) | payer OTHER | END 2023-06-20 22:42 | disposition home or self-care (01) | LOC: WOUND 03:03 | DX: E11.621 Type 2 diabetes mellitus with foot ulcer (principal); L89.894 Pressure ulcer of other site, stage 4; E11.622 Type 2 diabetes mellitus with other skin ulcer; E11.69 Type 2 diabetes mellitus with other specified complication; M86.372 Chronic multifocal osteomyelitis, left ankle and foot; E11.51 Type 2 diabetes mellitus with diabetic peripheral angiopathy without gangrene; R77.0 Abnormality of albumin; E11.40 Type 2 diabetes mellitus with diabetic neuropathy, unspecified; E11.65 Type 2 diabetes mellitus with hyperglycemia; M86.371 Chronic multifocal osteomyelitis, right ankle and foot | CPT/HCPCS: A9270 ==

== ENCOUNTER 2023-06-21 05:53 | Day surgery (SDC) | payer OTHER ==
[2023-06-21 11:10] VITALS: BP 171/87
== END 2023-06-21 11:31 | disposition home or self-care (01) ==
LOC: ATC 05:53
DX: L03.115 Cellulitis of right lower limb (principal); E11.9 Type 2 diabetes mellitus without complications; J45.909 Unspecified asthma, uncomplicated; E78.5 Hyperlipidemia, unspecified; I10 Essential (primary) hypertension; Z87.891 Personal history of nicotine dependence
CPT/HCPCS: 96365; J0878

== ENCOUNTER 2023-06-22 01:49 | Day surgery (SDC) | payer OTHER ==
[2023-06-22 10:25] VITALS: BP 195/96
== END 2023-06-22 10:53 | disposition home or self-care (01) ==
LOC: ATC 01:49
DX: A41.9 Sepsis, unspecified organism (principal); R65.20 Severe sepsis without septic shock; L03.115 Cellulitis of right lower limb; E11.9 Type 2 diabetes mellitus without complications; J45.909 Unspecified asthma, uncomplicated; E78.5 Hyperlipidemia, unspecified; I10 Essential (primary) hypertension; R06.00 Dyspnea, unspecified; Z87.891 Personal history of nicotine dependence; Z91.040 Latex allergy status; Z91.013 Allergy to seafood; Z91.018 Allergy to other foods; Z79.4 Long term (current) use of insulin; Z79.899 Other long term (current) drug therapy
CPT/HCPCS: 36415; 83880; 85379; 96365; J0878

== ENCOUNTER 2023-06-23 04:59 | Day surgery (SDC) | payer OTHER ==
[2023-06-23 11:14] VITALS: BP 174/83
== END 2023-06-23 11:45 | disposition home or self-care (01) ==
LOC: ATC 04:59
DX: A41.9 Sepsis, unspecified organism (principal); R65.20 Severe sepsis without septic shock; L03.115 Cellulitis of right lower limb; E11.9 Type 2 diabetes mellitus without complications; I10 Essential (primary) hypertension; J45.909 Unspecified asthma, uncomplicated
CPT/HCPCS: 96365; J0878

== ENCOUNTER 2023-06-24 01:45 | Day surgery (SDC) | payer OTHER ==
[2023-06-24 11:23] VITALS: BP 189/93
== END 2023-06-24 11:50 | disposition home or self-care (01) ==
LOC: ATC 01:45
DX: L03.115 Cellulitis of right lower limb (principal); E11.9 Type 2 diabetes mellitus without complications; J45.909 Unspecified asthma, uncomplicated; E78.5 Hyperlipidemia, unspecified; I10 Essential (primary) hypertension; R56.9 Unspecified convulsions; Z87.891 Personal history of nicotine dependence; Z91.040 Latex allergy status; Z79.4 Long term (current) use of insulin; Z79.84 Long term (current) use of oral hypoglycemic drugs
CPT/HCPCS: 96365; J0878

== ENCOUNTER 2023-06-25 10:49 | Day surgery (SDC) | payer OTHER ==
[2023-06-25 10:59] VITALS: BP 183/80
== END 2023-06-25 11:21 | disposition home or self-care (01) ==
LOC: ATC 10:49
DX: L03.115 Cellulitis of right lower limb (principal); E11.9 Type 2 diabetes mellitus without complications; I10 Essential (primary) hypertension; R56.9 Unspecified convulsions
CPT/HCPCS: 96365; J0878

== ENCOUNTER 2023-06-26 00:36 | Day surgery (SDC) | payer OTHER ==
[2023-06-26 11:08] VITALS: BP 185/93
== END 2023-06-26 11:30 | disposition home or self-care (01) ==
LOC: ATC 00:36
DX: A41.9 Sepsis, unspecified organism (principal); L03.115 Cellulitis of right lower limb; I10 Essential (primary) hypertension; J45.909 Unspecified asthma, uncomplicated; E11.9 Type 2 diabetes mellitus without complications; Z91.040 Latex allergy status; Z91.013 Allergy to seafood; E78.5 Hyperlipidemia, unspecified
CPT/HCPCS: 96365; J0878

== ENCOUNTER 2023-06-27 00:50 | Day surgery (SDC) | payer OTHER | END 2023-06-27 22:48 | disposition home or self-care (01) | LOC: WOUND 00:50 | DX: E11.621 Type 2 diabetes mellitus with foot ulcer (principal); L97.422 Non-pressure chronic ulcer of left heel and midfoot with fat layer exposed; E11.622 Type 2 diabetes mellitus with other skin ulcer; L97.312 Non-pressure chronic ulcer of right ankle with fat layer exposed; E11.69 Type 2 diabetes mellitus with other specified complication; L89.894 Pressure ulcer of other site, stage 4; E11.51 Type 2 diabetes mellitus with diabetic peripheral angiopathy without gangrene; R77.0 Abnormality of albumin; M86.371 Chronic multifocal osteomyelitis, right ankle and foot; M86.372 Chronic multifocal osteomyelitis, left ankle and foot; E11.65 Type 2 diabetes mellitus with hyperglycemia; A41.9 Sepsis, unspecified organism; R65.20 Severe sepsis without septic shock; L03.115 Cellulitis of right lower limb; I10 Essential (primary) hypertension; J45.909 Unspecified asthma, uncomplicated; F17.210 Nicotine dependence, cigarettes, uncomplicated; Z91.018 Allergy to other foods; Z79.4 Long term (current) use of insulin; Z79.899 Other long term (current) drug therapy; R06.00 Dyspnea, unspecified; J90 Pleural effusion, not elsewhere classified; E87.70 Fluid overload, unspecified; I99.8 Other disorder of circulatory system; J98.4 Other disorders of lung | CPT/HCPCS: 71260; 96365; A9270; J0878; Q9967 ==

== ENCOUNTER 2023-06-28 02:15 | Day surgery (SDC) | payer OTHER ==
[2023-06-28 11:05] VITALS: BP 187/88
[2023-06-28 11:15] VITALS: BP 187/88
== END 2023-06-28 11:36 | disposition home or self-care (01) ==
LOC: ATC 02:15
DX: L03.115 Cellulitis of right lower limb (principal); E11.9 Type 2 diabetes mellitus without complications; J45.909 Unspecified asthma, uncomplicated; E78.5 Hyperlipidemia, unspecified; I10 Essential (primary) hypertension; R56.9 Unspecified convulsions; Z91.040 Latex allergy status
CPT/HCPCS: 96365; J0878

== ENCOUNTER 2023-06-29 06:01 | Day surgery (SDC) | payer OTHER ==
[2023-06-29 11:17] VITALS: BP 189/87
== END 2023-06-29 11:39 | disposition home or self-care (01) ==
LOC: ATC 06:01
DX: A41.9 Sepsis, unspecified organism (principal); R65.20 Severe sepsis without septic shock; L03.115 Cellulitis of right lower limb; E11.9 Type 2 diabetes mellitus without complications; I10 Essential (primary) hypertension; J45.909 Unspecified asthma, uncomplicated; Z91.040 Latex allergy status; Z91.013 Allergy to seafood; Z79.4 Long term (current) use of insulin; E78.5 Hyperlipidemia, unspecified
CPT/HCPCS: 96365; J0878

== ENCOUNTER 2023-06-30 02:09 | Day surgery (SDC) | payer OTHER ==
[2023-06-30 10:58] VITALS: BP 181/94
--- NOTE | 2023-06-30 11:56 | NUR ---
PT IS BEING FOLLOWED BY MD REGARDING BP. PT IS ASYMPTOMATIC WITH ELEVATED BP. PT HAS BEEN MONITORING AT HOME. MD HAD PT DOUBLE HIS BP MEDICATION 6 DAYS AGO. MD SUSPECTS BP MIGHT BE ELEVATED DUE TO ANXIETY AND A POSSIBLE SIDE EFFECT TO DAPTO AND/OR NYQUIL. PT HAS HAD ULTRASOUNDS OF BLE TO RULE OUT BLOOD CLOTS
== END 2023-06-30 11:23 | disposition home or self-care (01) ==
LOC: ATC 02:09
DX: A41.9 Sepsis, unspecified organism (principal); R65.20 Severe sepsis without septic shock; L03.115 Cellulitis of right lower limb; I10 Essential (primary) hypertension; E11.9 Type 2 diabetes mellitus without complications; E78.5 Hyperlipidemia, unspecified; J45.909 Unspecified asthma, uncomplicated; Z87.891 Personal history of nicotine dependence; Z79.4 Long term (current) use of insulin; Z79.899 Other long term (current) drug therapy
CPT/HCPCS: 96365; J0878

== ENCOUNTER 2023-07-01 02:30 | Day surgery (SDC) | payer OTHER ==
[2023-07-01 11:12] VITALS: BP 195/91
== END 2023-07-01 11:36 | disposition home or self-care (01) ==
LOC: ATC 02:30
DX: A41.9 Sepsis, unspecified organism (principal); R65.20 Severe sepsis without septic shock; E11.9 Type 2 diabetes mellitus without complications; I10 Essential (primary) hypertension; L03.115 Cellulitis of right lower limb; Z91.040 Latex allergy status; Z91.013 Allergy to seafood; E78.5 Hyperlipidemia, unspecified
CPT/HCPCS: 96365; J0878

== ENCOUNTER 2023-07-03 01:23 | Day surgery (SDC) | payer OTHER ==
[2023-07-03 11:06] VITALS: BP 179/89
== END 2023-07-03 11:25 | disposition home or self-care (01) ==
LOC: ATC 01:23
DX: L03.115 Cellulitis of right lower limb (principal); J45.909 Unspecified asthma, uncomplicated; E78.5 Hyperlipidemia, unspecified; I10 Essential (primary) hypertension; E11.9 Type 2 diabetes mellitus without complications; Z87.891 Personal history of nicotine dependence; Z91.040 Latex allergy status; Z79.4 Long term (current) use of insulin
CPT/HCPCS: 96365; J0878

== ENCOUNTER 2023-07-04 02:57 | Day surgery (SDC) | payer OTHER | END 2023-07-04 23:01 | disposition home or self-care (01) | LOC: WOUND 02:57 | DX: E11.621 Type 2 diabetes mellitus with foot ulcer (principal); L89.894 Pressure ulcer of other site, stage 4; M86.372 Chronic multifocal osteomyelitis, left ankle and foot; M86.371 Chronic multifocal osteomyelitis, right ankle and foot; E11.622 Type 2 diabetes mellitus with other skin ulcer; E11.51 Type 2 diabetes mellitus with diabetic peripheral angiopathy without gangrene; E11.69 Type 2 diabetes mellitus with other specified complication; R77.0 Abnormality of albumin; A41.9 Sepsis, unspecified organism; R65.20 Severe sepsis without septic shock; E78.5 Hyperlipidemia, unspecified; I10 Essential (primary) hypertension; Z91.040 Latex allergy status; Z91.013 Allergy to seafood; L03.115 Cellulitis of right lower limb; J45.909 Unspecified asthma, uncomplicated | CPT/HCPCS: 96365; A9270; G0463; J0878 ==

== ENCOUNTER 2023-07-11 03:08 | Day surgery (SDC) | payer OTHER | END 2023-07-11 22:57 | disposition home or self-care (01) | LOC: WOUND 03:08 | DX: E11.621 Type 2 diabetes mellitus with foot ulcer (principal); L97.422 Non-pressure chronic ulcer of left heel and midfoot with fat layer exposed; E11.622 Type 2 diabetes mellitus with other skin ulcer; L97.312 Non-pressure chronic ulcer of right ankle with fat layer exposed; E11.69 Type 2 diabetes mellitus with other specified complication; M86.371 Chronic multifocal osteomyelitis, right ankle and foot; M86.372 Chronic multifocal osteomyelitis, left ankle and foot; L89.894 Pressure ulcer of other site, stage 4; I73.9 Peripheral vascular disease, unspecified; T81.31XD Disruption of external operation (surgical) wound, not elsewhere classified, subsequent encounter; Y83.8 Other surgical procedures as the cause of abnormal reaction of the patient, or of later complication, without mention of misadventure at the time of the procedure | CPT/HCPCS: G0463 ==

== ENCOUNTER 2023-07-18 03:56 | Day surgery (SDC) | payer OTHER | END 2023-07-18 22:50 | disposition home or self-care (01) | LOC: WOUND 03:56 | DX: E11.621 Type 2 diabetes mellitus with foot ulcer (principal); L97.422 Non-pressure chronic ulcer of left heel and midfoot with fat layer exposed; E11.622 Type 2 diabetes mellitus with other skin ulcer; L97.312 Non-pressure chronic ulcer of right ankle with fat layer exposed; E11.69 Type 2 diabetes mellitus with other specified complication; M86.372 Chronic multifocal osteomyelitis, left ankle and foot; M86.371 Chronic multifocal osteomyelitis, right ankle and foot; E11.40 Type 2 diabetes mellitus with diabetic neuropathy, unspecified; E11.51 Type 2 diabetes mellitus with diabetic peripheral angiopathy without gangrene; E11.65 Type 2 diabetes mellitus with hyperglycemia; R77.0 Abnormality of albumin ==

== ENCOUNTER 2023-07-28 02:50 | Day surgery (SDC) | payer OTHER | END 2023-07-28 22:58 | disposition home or self-care (01) | LOC: WOUND 02:50 | DX: E11.622 Type 2 diabetes mellitus with other skin ulcer (principal); L97.312 Non-pressure chronic ulcer of right ankle with fat layer exposed; E11.621 Type 2 diabetes mellitus with foot ulcer; L97.529 Non-pressure chronic ulcer of other part of left foot with unspecified severity; L89.894 Pressure ulcer of other site, stage 4; E11.69 Type 2 diabetes mellitus with other specified complication; M86.372 Chronic multifocal osteomyelitis, left ankle and foot; M86.371 Chronic multifocal osteomyelitis, right ankle and foot; E11.51 Type 2 diabetes mellitus with diabetic peripheral angiopathy without gangrene; E11.40 Type 2 diabetes mellitus with diabetic neuropathy, unspecified; E11.65 Type 2 diabetes mellitus with hyperglycemia | CPT/HCPCS: A9270 ==

== ENCOUNTER 2023-08-04 04:54 | Day surgery (SDC) | payer OTHER | END 2023-08-04 23:04 | disposition home or self-care (01) | LOC: WOUND 04:54 | DX: E11.621 Type 2 diabetes mellitus with foot ulcer (principal); L97.522 Non-pressure chronic ulcer of other part of left foot with fat layer exposed; E11.622 Type 2 diabetes mellitus with other skin ulcer; L97.312 Non-pressure chronic ulcer of right ankle with fat layer exposed; L89.894 Pressure ulcer of other site, stage 4; E11.69 Type 2 diabetes mellitus with other specified complication; M86.371 Chronic multifocal osteomyelitis, right ankle and foot; M86.372 Chronic multifocal osteomyelitis, left ankle and foot; E11.51 Type 2 diabetes mellitus with diabetic peripheral angiopathy without gangrene; R77.0 Abnormality of albumin; E11.40 Type 2 diabetes mellitus with diabetic neuropathy, unspecified; E11.65 Type 2 diabetes mellitus with hyperglycemia | CPT/HCPCS: G0463 ==

== ENCOUNTER 2024-01-20 11:35 | Day surgery (SDC) | payer OTHER ==
[~2024-01-20] VITALS: Ht 185.4 cm; Wt 120.5 kg
[~2024-01-20 11:35] MED LIST changes: +Lidocaine HCl 2% 10 ML SDA ONE; +Ropivacaine 0.5% HCl/Pf 5 MG/ML 20ML VIAL ONE
[2024-01-20] MEDS ORDERED: CeFAZolin Sodium 3,000 MG in NS 100 ML IV SCH (12:10)
[2024-01-20] MEDS ORDERED: FentaNYL Citrate 50 MCG/ML 2 ML Injection ONE (12:24)
[2024-01-20] MEDS ORDERED: propofoL 20 ML IV ONE ×2 (12:24→13:00)
[2024-01-20] MEDS ORDERED: Lactated Ringer's 1,000 ML IV ONE (12:28)
[2024-01-20] MEDS ORDERED: Dexmedetomidine HCL 200 MCG / 2 ML ONE (12:39)
[2024-01-20 13:55] VITALS: BP 107/63
--- NOTE | 2024-01-20 14:52 | NUR ---
01/20/24 1452 Donal Allen PT STATES CURRENT B/P IS WITHIN 20% OF BASELINE. HE DENIED CARDIAC AND RESPIRATORY SYMPTOMS; INCLUDING DIZZINESS, CP, AND SOB. O2 MAINTAINED >94% WITH OCCASIONAL, BREIF DROPS TO 92-93%. PT QUICKLY, SPONTANEOUSLY RAISED O2 TO >94% EACH TIME. DR. SIM CONSULTED REGARDING O2, AND APPROVED D/C WITH INCENTIVE SPIROMETER. PT WAS GIVEN INCENTIVE SPIROMETER AND INSTRUCTED IN ITS USE. PT INFORMED PERSCRIPTION SENT TO [facility]. PT STATED HE WOULD TRACK LINER OPERATOR PERSCRIPTION TUESDAY. HE WAS INSTRUCTED TO TRACK LINER OPERATOR PERSCRIPTION IMMEDIATELY AND EDUCATED IN PAIN MANAGEMENT.
== END 2024-01-20 14:47 | disposition home or self-care (01) ==
LOC: ORSCSDS 11:35
PROVIDERS: Podiatrist Foot & Ankle Surgery
PROC: 0JBR0ZZ Excision of Left Foot Subcutaneous Tissue and Fascia, Open Approach (ICD-10-PCS; principal; 2024-01-20 12:45)
PROC: 0QBP0ZZ Excision of Left Metatarsal, Open Approach (ICD-10-PCS; principal; 2024-01-20 12:45)
DX: L89.893 Pressure ulcer of other site, stage 3 (principal); E11.621 Type 2 diabetes mellitus with foot ulcer; L97.509 Non-pressure chronic ulcer of other part of unspecified foot with unspecified severity; M89.9 Disorder of bone, unspecified; M86.172 Other acute osteomyelitis, left ankle and foot; I10 Essential (primary) hypertension; J45.909 Unspecified asthma, uncomplicated; G40.909 Epilepsy, unspecified, not intractable, without status epilepticus; E66.9 Obesity, unspecified; Z68.35 Body mass index [BMI] 35.0-35.9, adult; Z79.4 Long term (current) use of insulin; E78.5 Hyperlipidemia, unspecified; F32.A Depression, unspecified; Z79.899 Other long term (current) drug therapy
CPT/HCPCS: 82947; 88305; 88311; J0690; J2001; J2704; J2795; J3010